=== PATIENT | female | born 1945 | race Caucasian/White ===

== ENCOUNTER 2016-10-15 09:29 | Emergency (ER) | payer BC ==
[2016-10-15 09:51] VITALS: BP 206/80
--- NOTE | 2016-10-15 10:17 | UC ---
General HPI - HPI Summary HPI Summary: SUDDEN ONSET OF RIGHT ARM AND LEG "HEAVINESS" THIS MORNING AROUND 7:40AM WHILE SHE WAS DRINKING COFFEE. "JUST DIDN'T FEEL RIGHT". COULDN'T HOLD HER COFFEE CUP UP. FELT THE SAME WHEN SHE HAD HER TIA IN 2008. AFTER ABOUT AN HOUR THE SYMPTOMS IMPROVED AND SHE CURRENTLY HAS NO CLINICAL DEFICITS ALTHOUGH SHE STATES IT STILL "DOESN'T FEEL RIGHT". NO FEVER, CP, SOB, NAUSEA. - History of Current Complaint Chief Complaint: UCGeneralIllness Stated Complaint: HEAVEY FEELING ON RT SIDE Time Seen by Provider: 10/15/16 09:44 Hx Obtained From: Patient, Family/Asbestos Abatement Worker - DAUGHTER Onset/Duration: Sudden Onset, Lasting Hours, Resolved Onset Severity: Moderate Current Severity: Moderate Pain Intensity: 0 Associated Signs & Symptoms: Positive: Weakness - Allergy/Home Medications Allergies/Adverse Reactions: Allergies Allergy/AdvReac Type Severity Reaction Status Date / Time Acetaminophen Allergy Nausea Verified 04/17/13 11:36 [From Tylenol with Codeine #3] Codeine Allergy Nausea Verified 04/17/13 11:36 [From Tylenol with Codeine #3] Lidocaine Allergy FULL BODY Verified 04/17/13 11:36 SHAKES Lisinopril Allergy Coughing Verified 04/17/13 11:36 Sulfamethoxazole Allergy Rash Verified 04/17/13 11:36 w/Trimethoprim [From Bactrim] BANDAID/ADHESIVE TAPE Allergy SEVERE Uncoded 04/17/13 11:36 ITCHY RASH PERFUMES/HEAVY Allergy CHOKY Uncoded 04/17/13 11:36 SMELLS/FRAGRENCE FEELING, COUGH PMH/Surg Hx/FS Hx/Imm Hx Cardiovascular History: Hypertension Neurological History: TIA - 2009 - Surgical History Surgical History: Yes Surgery Procedure, Year, and Place: 07/13/2011 [facility]. 1973 GROWN IN [facility]IL[facility]A, [facility] - Family History Known Family History: Positive: Hypertension - Social History Alcohol Use: Rare Substance Use Type: None Smoking Status (MU): Heavy Every Day Tobacco Smoker Type: Cigarettes Amount Used/How Often: 3/4 ppd Have You Smoked in the Last Year: Yes Review of Systems Constitutional: Negative Skin: Negative Respiratory: Negative Cardiovascular: Negative Gastrointestinal: Negative Neurological: Weakness, Paresthesia All Other Systems Reviewed And Are Negative: Yes Physical Exam Triage Information Reviewed: Yes Appearance: Well-Appearing, No Pain Distress, Well-Nourished Vital Signs: Initial Vital Signs Temp 98 F 10/15/16 09:47 Pulse 78 10/15/16 09:47 Resp 18 10/15/16 09:47 BP 206/80 10/15/16 09:47 Pulse Ox 100 10/15/16 09:47 Vital Signs Reviewed: Yes Eyes: Positive: Conjunctiva Clear ENT: Positive: Hearing grossly normal Neck: Positive: Supple, Nontender, No Lymphadenopathy Respiratory Exam: Normal Cardiovascular Exam: Normal Abdomen Description: Positive: Soft Musculoskeletal: Positive: No Edema Neurological: Positive: Alert, Other: - CN II-XII GROSSLY INTACT BILATERALLY. NEG PRONATOR DRIFT. NEGATIVE ROMBERG. FINGER TO NOSE INTACT BILATERALLY. HEEL TO MOORE INTACT BILATERALLY. HEEL TO TOE INTACT BILATERALLY. RAPID ALTERNATING MVMTS INTACT. 5/5 STRENGTH BILATERALLY Psychological: Positive: Normal Response To Family, Age Appropriate Behavior Skin: Negative: rashes Course/Dx - Differential Dx - Multi-Symptom Provider Diagnoses: RIGHT SIDED WEAKNESS - Physician Notifications Discussed Patient Care With: SNEHA GOODMAN Time Discussed With Above Provider: 10:10 - TO [facility] BY PRIVATE CAR Discharge - Discharge Plan Condition: Stable Disposition: AGAINST MEDICAL ADVICE Referrals: Olga Flores MD [Primary Care Provider] -
== END 2016-10-15 10:15 | disposition left against medical advice (07) ==
LOC: UCEAST 09:29
DX: R53.1 Weakness (principal); Z86.73 Personal history of transient ischemic attack (TIA), and cerebral infarction without residual deficits; F17.210 Nicotine dependence, cigarettes, uncomplicated
CPT/HCPCS: 99212; G0463

== ENCOUNTER 2016-10-15 10:34 | Emergency (ER) | payer BC ==
[2016-10-15 11:21] VITALS: BP 170/62
[2016-10-15 11:24] LABS: Hematocrit 46 % (35-47); Mean Corpuscular HGB Conc 33 g/dl (31-36); Mean Corpuscular Hemoglobin 31 pg (27-31); Mean Corpuscular Volume 95 fL (80-97); Mean Platelet Volume 8 um3 (7.4-10.4); Red Blood Count 4.83 10^6/ul (4.0-5.4); Red Cell Distribution Width 14 % (10.5-15); White Blood Count 8.2 10^3/ul (3.5-10.8)
--- NOTE | 2016-10-15 11:38 | RAD ---
HISTORY: Upper extremity weakness COMPARISONS: None VIEWS: 2: Frontal dual-energy and lateral views of the chest. FINDINGS: CARDIOMEDIASTINAL SILHOUETTE: The cardiomediastinal silhouette is normal. NIURKA: The niurka are normal. PLEURA: The costophrenic angles are sharp. No pleural abnormalities are noted. LUNG PARENCHYMA: There is minimal linear opacification of left lung base ABDOMEN: The upper abdomen is clear. There is no subphrenic gas. BONES AND SOFT TISSUES: Degenerative changes are noted along the spine. OTHER: None. IMPRESSION: MINIMAL LINEAR ATELECTASIS OF LEFT LUNG BASE
--- NOTE | 2016-10-15 11:49 | RAD ---
HISTORY: Right upper extremity weakness COMPARISONS: October 30, 2008 TECHNIQUE: Multiple contiguous axial CT scans were obtained of the head without intravenous contrast. FINDINGS: HEMORRHAGE/INFARCT: There is no hemorrhage or acute infarct. MASSES/SHIFT: There is no mass or shift. EXTRA-AXIAL SPACES: There are no extra-axial fluid collections. SULCI AND VENTRICLES: The sulci and ventricles are normal in size and position for the patient's stated age. CEREBRUM: There are no focal parenchymal abnormalities. BRAINSTEM: There are no focal parenchymal abnormalities. CEREBELLUM: There are no focal parenchymal abnormalities. VESSELS: The vessels are grossly normal. PARANASAL SINUSES: There is mucosal thickening of the left maxillary sinus. ORBITS: The orbits are unremarkable. BONES AND SOFT TISSUE: There is a subcutaneous cyst of the right face, likely an epidermal inclusion cyst. OTHER: None IMPRESSION: NO ACUTE INTRACRANIAL PATHOLOGY.
[2016-10-15 12:51] LABS: Albumin 4.3 g/dL (3.2-5.2); BUN/Creatinine Ratio 17.9 (8-20); Calcium 9.6 mg/dL (8.6-10.3); EGFR African American 93.1 (>60); EGFR Non-African American 72.4 (>60); Globulin 2.9 g/dL (2-4); HDL Cholesterol 53.7 mg/dL; Potassium 4.1 mmol/L (3.5-5.0); Total Bilirubin 0.6 mg/dL (0.2-1.0); Total Protein 7.2 g/dL (6.4-8.9)
[2016-10-15 13:17] LABS: Troponin I 0.05 ng/mL (<0.04)
--- NOTE | 2016-10-16 17:25 | ED ---
Benigno Duarte Aidan, scribed for Devan Fatima MD on 10/15/16 at 1119 . Neurological HPI - HPI Summary HPI Summary: 71 y/o female presents to the ED with a complaint of an acute, moderate episode of heaviness in the right arm followed by a similar sensation in the right arm that she had previously in 2008 when she had a stroke. The episode lasted roughly an hour. Currently, she is asymptomatic. Additionally, last Monday she fell and hit her head. The fall was followed by lightheadedness, however, there was no reported LOC. SHe denies any CP, SOB or palpitations. - History of Current Complaint Chief Complaint: EDNeurologicalDeficit Stated Complaint: POSSIBLE TIA COMMING FROM CC Time Seen by Provider: 10/15/16 10:53 Hx Obtained From: Patient, Family/Movie Shot Cameraman Onset/Duration: Sudden Onset, Resolved Timing: Intermittent Episodes Lasting: - episode lasted roughly 1 hour Onset Severity: Moderate Current Severity: None Number of Seizures: 0 - the episode is likely not categorized as a seizure Neurological Deficit Location: RUE Pain Intensity: 0 Pain Scale Used: 0-10 Numeric Character: Motor Weakness - right arm Syncope Timing: GHOST WRITER Episode Lasting: Hours - 1 hour Number of Episodes: 1 Syncope Context: Unwitnessed, Loss of Consciousness: No, At Rest Frequency: Episodes x___ - 1, Episodes Lasting ____ (in Mins/Days/Weeks/Years) - 1 hour Syncope Location: Partial Extremities - There was no syncope, however, the patient had an episode of moderate weakness in the right arm followed by a sensation similar to one she had in 2008 just after having a stroke Seizure Character: Partial (Specify) - weakness in RUE followed by a strange sensation Aggravating: Unknown Alleviating: Unknown - episode resolved spontaniously Associated Signs and Symptoms: Positive: Negative - however, 7 days ago, Pt fell onto her head. No reported LOC but there was lightheadedness - Allergy/Home Medications Allergies/Adverse Reactions: Allergies Allergy/AdvReac Type Severity Reaction Status Date / Time Codeine Allergy Nausea Verified 10/15/16 10:37 [From Tylenol with Codeine #3] Lidocaine Allergy FULL BODY Verified 10/15/16 10:37 SHAKES Lisinopril Allergy Coughing Verified 10/15/16 10:37 Sulfamethoxazole Allergy Rash Verified 10/15/16 10:37 w/Trimethoprim [From Bactrim] BANDAID/ADHESIVE TAPE Allergy SEVERE Uncoded 10/15/16 10:37 ITCHY RASH PERFUMES/HEAVY Allergy CHOKY Uncoded 10/15/16 10:37 SMELLS/FRAGRENCE FEELING, COUGH PMH/Surg Hx/FS Hx/Imm Hx Endocrine/Hematology History: Denies: Hx Diabetes, Hx Thyroid Disease Cardiovascular History: Reports: Hx Hypertension - ON MEDS, Other Cardiovascular Problems/Disorders - CHOLESTEROL CONTROL WITH MEDS Respiratory History: Reports: Other Respiratory Problems/Disorders - OCCASIONAL SINUS PROBLEMS, MAY BE RELATED TO SMOKING, TRYING TO QUIT Denies: Hx Asthma, Hx Chronic Obstructive Pulmonary Disease (COPD) GI History: Denies: Hx Ulcer Musculoskeletal History: Reports: Hx Arthritis - SPINE, BILATERAL HANDS, Hx Tendonitis - RIGHT SHOULDER-NO PROBLEMS NOW Sensory History: Reports: Hx Cataracts - BILATERAL, Hx Contacts or Glasses - GLASSES, Hx Glaucoma - VERY EARLY STAGES Denies: Hx Hearing Aid Opthamlomology History: Reports: Hx Cataracts - BILATERAL, Hx Contacts or Glasses - GLASSES, Hx Glaucoma - VERY EARLY STAGES Neurological History: Reports: Hx CVA - in 2008, according to Pt - Surgical History Surgery Procedure, Year, and Place: 07/13/2011 [facility] REMOVED FROM [facility] [place] [facility]. 1973 GROWN IN [facility] ARE[place], [facility] Hx Anesthesia Reactions: No Infectious Disease History: No Infectious Disease History: Denies: Hx Clostridium Difficile, Hx Hepatitis, Hx Human Immunodeficiency Virus (HIV), Hx of Known/Suspected MRSA, Hx Shingles, Hx Tuberculosis, Hx Known/ Suspected VRE, Hx Known/Suspected VRSA, History Other Infectious Disease, Traveled Outside the [place] in Last 30 Days - Family History Known Family History: Positive: Hypertension, Blood Disorder - blood clots, Other - [place] - Social History Occupation: Employed Full-time Lives: Alone Alcohol Use: Rare Substance Use Type: Reports: None Smoking Status (MU): Heavy Every Day Tobacco Smoker Type: Cigarettes Amount Used/How Often: 3/4 ppd Have You Smoked in the Last Year: Yes Review of Systems Constitutional: Negative Eyes: Negative ENT: Negative Cardiovascular: Negative Respiratory: Negative Gastrointestinal: Negative Genitourinary: Negative Musculoskeletal: Negative Skin: Negative Positive: Weakness - right arm, followed by episode of a similar sensation that she had in 2008 when she had a stroke. Negative: Headache, Paresthesia, Numbness, Syncope, Slurred Speech Psychological: Normal All Other Systems Reviewed And Are Negative: Yes Physical Exam - Summary Physical Exam Summary: VITAL SIGNS: Reviewed. GENERAL: Patient is a well-developed and nourished FEMALE who is lying comfortable in the stretcher. Patient is not in any acute respiratory distress. HEAD AND FACE: No signs of trauma. No ecchymosis, hematomas or skull depressions. No sinus tenderness. EYES: PERRLA, EOMI x 2, No injected conjunctiva, no nystagmus. No photophobia. EARS: Hearing grossly intact. Ear canals and tympanic membranes are within normal limits. MOUTH: Oropharynx within normal limits. NECK: Supple, trachea is midline, no adenopathy, no JVD, no carotid bruit, no c- spine tenderness, neck with full ROM. No meningeal signs, no Kernig's or brudzinskis signs. CHEST: Symmetric, no tenderness at palpation, bruising on the right side of the chest LUNGS: Clear to auscultation bilaterally. No wheezing or crackles. CVS: Regular rate and rhythm, S1 and S2 present, no murmurs or gallops appreciated. ABDOMEN: Soft, non-tender. No signs of distention. No rebound no guarding, and no masses palpated. Bowel sounds are normal. EXTREMITIES: FROM in all major joints, no edema, no cyanosis or clubbing. NEURO: Alert and oriented x 3. No acute neurological deficits. Speech is normal and follows commands. SKIN: Dry and warm Triage Information Reviewed: Yes Vital Signs On Initial Exam: Initial Vitals Temp Pulse Resp BP Pulse Ox 97.6 F 74 18 157/72 100 10/15/16 10:38 10/15/16 10:38 10/15/16 10:38 10/15/16 10:38 10/15/16 10:38 Vital Signs Reviewed: Yes Diagnostics - Vital Signs Vital Signs Temp Pulse Resp BP Pulse Ox 10/15/16 10:47 15 10/15/16 10:46 165/73 10/15/16 10:38 97.6 F 74 18 157/72 100 - Laboratory Lab Results: Lab Results 10/15/16 10/15/16 10/15/16 Range/Units 11:12 11:12 11:12 WBC 8.2 (3.5-10.8) 10^3/ul RBC 4.83 (4.0-5.4) 10^6/ul Hgb 15.0 (12.0-16.0) g/dl Hct 46 (35-47) % MCV 95 (80-97) fL MCH 31 (27-31) pg MCHC 33 (31-36) g/dl RDW 14 (10.5-15) % Plt Count 232 (150-450) 10^3/ul MPV 8 (7.4-10.4) um3 Neut % (Auto) 63.7 (38-83) % Lymph % (Auto) 25.1 (25-47) % [place] % (Auto) 8.6 (1-9) % Eos % (Auto) 1.8 (0-6) % Baso % (Auto) 0.8 (0-2) % Absolute Neuts (auto) 5.2 (1.5-7.7) 10^3/ul Absolute Lymphs (auto) 2.1 (1.0-4.8) 10^3/ul Absolute Monos (auto) 0.7 (0-0.8) 10^3/ul Absolute Eos (auto) 0.1 (0-0.6) 10^3/ul Absolute Basos (auto) 0.1 (0-0.2) 10^3/ul Absolute Nucleated RBC 0.01 10^3/ul Nucleated RBC % 0.1 INR (Anticoag Therapy) 0.90 (0.89-1.11) Sodium (133-145) mmol/L Potassium (3.5-5.0) mmol/L Chloride (101-111) mmol/L Carbon Dioxide (22-32) mmol/L Anion Gap (2-11) mmol/L BUN (6-24) mg/dL Creatinine (0.51-0.95) mg/dL Est GFR ( Amer) (>60) Est GFR (Non-Af Amer) (>60) BUN/Creatinine Ratio (8-20) Glucose (70-100) mg/dL Lactic Acid 1.0 (0.5-2.0) mmol/L Calcium (8.6-10.3) mg/dL Total Bilirubin (0.2-1.0) mg/dL AST (13-39) U/L ALT (7-52) U/L Alkaline Phosphatase (34-104) U/L Troponin I (<0.04) ng/mL Total Protein (6.4-8.9) g/dL Albumin (3.2-5.2) g/dL Globulin (2-4) g/dL Albumin/Globulin Ratio (1-3) Triglycerides mg/dL Cholesterol mg/dL LDL Cholesterol mg/dL HDL Cholesterol mg/dL 10/15/16 Range/Units 12:23 WBC (3.5-10.8) 10^3/ul RBC (4.0-5.4) 10^6/ul Hgb (12.0-16.0) g/dl Hct (35-47) % MCV (80-97) fL MCH (27-31) pg MCHC (31-36) g/dl RDW (10.5-15) % Plt Count (150-450) 10^3/ul MPV (7.4-10.4) um3 Neut % (Auto) (38-83) % Lymph % (Auto) (25-47) % [place] % (Auto) (1-9) % Eos % (Auto) (0-6) % Baso % (Auto) (0-2) % Absolute Neuts (auto) (1.5-7.7) 10^3/ul Absolute Lymphs (auto) (1.0-4.8) 10^3/ul Absolute Monos (auto) (0-0.8) 10^3/ul Absolute Eos (auto) (0-0.6) 10^3/ul Absolute Basos (auto) (0-0.2) 10^3/ul Absolute Nucleated RBC 10^3/ul Nucleated RBC % INR (Anticoag Therapy) (0.89-1.11) Sodium 137 (133-145) mmol/L Potassium 4.1 (3.5-5.0) mmol/L Chloride 107 (101-111) mmol/L Carbon Dioxide 25 (22-32) mmol/L Anion Gap 5 (2-11) mmol/L BUN 14 (6-24) mg/dL Creatinine 0.78 (0.51-0.95) mg/dL Est GFR ( Amer) 93.1 (>60) Est GFR (Non-Af Amer) 72.4 (>60) BUN/Creatinine Ratio 17.9 (8-20) Glucose 98 (70-100) mg/dL Lactic Acid (0.5-2.0) mmol/L Calcium 9.6 (8.6-10.3) mg/dL Total Bilirubin 0.60 (0.2-1.0) mg/dL AST 19 (13-39) U/L ALT 15 (7-52) U/L Alkaline Phosphatase 57 (34-104) U/L Troponin I 0.05 H* (<0.04) ng/mL Total Protein 7.2 (6.4-8.9) g/dL Albumin 4.3 (3.2-5.2) g/dL Globulin 2.9 (2-4) g/dL Albumin/Globulin Ratio 1.5 (1-3) Triglycerides 90 mg/dL Cholesterol 147 mg/dL LDL Cholesterol 75 mg/dL HDL Cholesterol 53.7 mg/dL Result Diagrams: 10/15/16 11:12 10/15/16 12:23 Lab Statement: Any lab studies that have been ordered have been reviewed, and results considered in the medical decision making process. - Radiology CHEST X-RAY Xray Interpretation: Positive (See Comments) - IMPRESSION: MINIMAL LINEAR ATELECTASIS OF LEFT LUNG BASE Radiology Interpretation Completed By: Radiologist - CT BRAIN CT CT Interpretation: No Acute Changes - IMPRESSION: No acute intracranial pathology. CT Interpretation Completed By: Radiologist - EKG EKG 1050 Cardiac Rate: NL - 66 BPM EKG Rhythm: Sinus Rhythm EKG Interpretation: SINUS RHYTHM, NO ST ELEVATIONS Course/Dx - Course Course Of Treatment: 71 y/o female presents with a complaint of an episode of weakness in her right arm followed by a sensation similar to one she had in 2008 just after having a stroke. She denies any chest pain or SOB. Labs and imaging reviewed. Labs within normal limits except for a troponin of 0.05. Head ct is negative. Chest x-ray is negative. Test results were discussed with the patient and she was offered admission since I believ she had a TIA and she has an increased Troponin. She refuses sdmisssion. I explained the risk of increased troponin ans acute coronary syndrome. She reports that she no longer has symptoms and that she would like to be discharged home, despite the risks of discharge. She was explained the risk of leaving AMA. She claims to understand the risks and still wishes to be discharged home. EKG showed normal sinus rhythm at [address] elevations, however, there is still concern for acute coronary syndrome. The patient still refuses to stay and therefore will leave AMA. I extensively discussed with the patient the benefits and risk of leaving AMA. I also discussed the alternatives to leaving AMA, however, the patient still insist to leave the hospital AMA.. The primary nurse and the charge nurse also strongly recommended that the patient should not leave AMA. Patient understands the risk of leaving AMA, which includes but is not restricted to . Patient is Alert and oriented times three and patient verbalizes understanding. Patient has full capacity and is cognitively intact. Patient signed the AMA form. Patient was also advised to return to ED if he changes his mind or if the symptoms worsen or other symptoms appear. Patient understands and agrees. - Differential Dx Differential Diagnoses Neuro: Positive: Cerebrovascular Accident, Intracranial Bleed, Other - ACS, [place] - Diagnoses Provider Diagnoses: Left against medical advice, Elevated troponin, TIA (transient ischemic attack) Discharge - Discharge Plan Condition: Guarded Disposition: AGAINST MEDICAL ADVICE The documentation as recorded by the Benigno daivs Aidan accurately reflects the service I personally performed and the decisions made by me, Devan Fatima MD.
== END 2016-10-15 13:20 | disposition left against medical advice (07) ==
LOC: ED 10:34
DX: G45.9 Transient cerebral ischemic attack, unspecified (principal); R79.89 Other specified abnormal findings of blood chemistry; Z53.21 Procedure and treatment not carried out due to patient leaving prior to being seen by health care provider
CPT/HCPCS: 36415; 70450; 71020; 80053; 80061; 83605; 84484; 85025; 85610; 93005; 99283

== ENCOUNTER 2017-02-10 14:15 | Emergency (ER) | payer BC ==
[2017-02-10 14:28] VITALS: BP 121/50
--- NOTE | 2017-02-10 15:11 | UC ---
Respiratory Complaint HPI - HPI Summary HPI Summary: 3 weeks of sinus pain and congestion - History of Current Complaint Chief Complaint: UCGeneralIllness Stated Complaint: COUGH CONGESTION Time Seen by Provider: 02/10/17 14:51 Hx Obtained From: Patient Hx From Patient Unobtainable Due To: Dementia ?: No Onset/Duration: Gradual Onset, Lasting Weeks - 3, Worse Since - past 3-4 days Timing: Constant Severity Initially: Mild Severity Currently: Moderate Pain Intensity: 4 Pain Scale Used: 0-10 Numeric Character: Cough: Nonproductive Aggravating Factors: Nothing Alleviating Factors: Nothing Associated Signs And Symptoms: Positive: Pleuritic Chest Pain, URI, Nasal Congestion, Sinus Discomfort - Allergies/Home Medications Allergies/Adverse Reactions: Allergies Allergy/AdvReac Type Severity Reaction Status Date / Time Codeine Allergy Nausea Verified 02/10/17 14:29 [From Tylenol with Codeine #3] Lidocaine Allergy FULL BODY Verified 02/10/17 14:29 SHAKES Lisinopril Allergy Coughing Verified 02/10/17 14:29 Sulfamethoxazole Allergy Rash Verified 02/10/17 14:29 w/Trimethoprim [From Bactrim] BANDAID/ADHESIVE TAPE Allergy SEVERE Uncoded 02/10/17 14:29 ITCHY RASH PERFUMES/HEAVY Allergy CHOKY Uncoded 02/10/17 14:29 SMELLS/FRAGRENCE FEELING, COUGH Home Medications: Home Medications Dipyridamole/Aspirin 25/200* [Aggrenox 25/200*] 1 cap PO BID 02/10/17 [History Confirmed 02/10/17] Timolol 0.5% OPTH.PATRICK* [Timoptic 0.5% Opth*] 1 drop BOTH EYES DAILY 02/10/17 [ History Confirmed 02/10/17] PMH/Surg Hx/FS Hx/Imm Hx Previously Healthy: No Cardiovascular History: Hypertension, Other - PVD Other Cardiovascular History: PVD - Surgical History Surgical History: Yes Surgery Procedure, Year, and Place: [facility] 1973 [facility], [facility] - Family History Known Family History: Positive: Hypertension, Blood Disorder - blood clots, Other - [place] - Social History Occupation: Employed Part-time Lives: With Family Alcohol Use: None Substance Use Type: None Smoking Status (MU): Heavy Every Day Tobacco Smoker Type: Cigarettes Amount Used/How Often: < 1PPD Have You Smoked in the Last Year: Yes Household Exposure Type: Cigarettes Review of Systems Constitutional: Negative Skin: Negative Eyes: Negative ENT: Nasal Discharge, Sinus Congestion, Sinus Pain/Tenderness Respiratory: Cough Cardiovascular: Negative Gastrointestinal: Negative Genitourinary: Negative Motor: Negative Neurovascular: Negative Musculoskeletal: Negative Neurological: Negative Psychological: Negative Is Patient Immunocompromised?: No All Other Systems Reviewed And Are Negative: Yes Physical Exam Triage Information Reviewed: Yes Appearance: Well-Appearing, No Pain Distress, Well-Nourished Vital Signs: Initial Vital Signs Temp 97.7 F 02/10/17 14:23 Pulse 74 02/10/17 14:23 Resp 18 02/10/17 14:23 BP 121/50 02/10/17 14:23 Pulse Ox 99 02/10/17 14:23 Vital Signs Reviewed: Yes Eye Exam: Normal Eyes: Positive: Conjunctiva Clear ENT Exam: Normal ENT: Positive: Normal ENT inspection, Hearing grossly normal, TMs normal. Negative: Nasal congestion, Nasal drainage, Trismus, Muffled/hoarse voice Neck exam: Normal Neck: Positive: Supple, Nontender, No Lymphadenopathy Respiratory Exam: Normal Respiratory: Positive: Chest non-tender, Lungs clear, Normal breath sounds, No respiratory distress, No accessory muscle use Cardiovascular Exam: Normal Cardiovascular: Positive: RRR, No Murmur, Pulses Normal, Brisk Capillary Refill Musculoskeletal Exam: Normal Musculoskeletal: Positive: Strength Intact, ROM Intact, No Edema Neurological Exam: Normal Neurological: Positive: Alert, Muscle Tone Normal Psychological Exam: Normal Skin Exam: Normal UC Diagnostic Evaluation - Laboratory O2 Sat by Pulse Oximetry: 99 Respiratory Course/Dx - Course Course Of Treatment: Flonase, Robitussin, zithromax, increase fluids, follow with pcp prn - Differential Dx/Diagnosis Differential Diagnosis/HQI/PQRI: Bronchitis, Lower Resp Infection, Sinusitis Provider Diagnoses: Bronchitis, sinusitis Discharge - Discharge Plan Condition: Stable Disposition: HOME Prescriptions: Azithromycin TAB* [Zithromax TAB (Z-FAVIAN) 250 mg #6 tabs] 2 tab PO .TODAY, THEN 1 DAILY #1 favian Fluticasone NASAL SPRAY 50MCG* [Flonase NASAL SPRAY 50MCG*] 2 spray BOTH NARES DAILY #1 btl Patient Education Materials: Antitussives (By mouth), Sinusitis (ED), Acute Bronchitis (ED), How to Use Nasal [place] (ED) Forms: *Work Release Referrals: Olga Flores MD [Primary Care Provider] - If Needed
== END 2017-02-10 15:24 | disposition home or self-care (01) ==
LOC: UCEAST 14:15
DX: J40 Bronchitis, not specified as acute or chronic (principal); J32.9 Chronic sinusitis, unspecified; I10 Essential (primary) hypertension; I73.9 Peripheral vascular disease, unspecified; F17.210 Nicotine dependence, cigarettes, uncomplicated; Z79.82 Long term (current) use of aspirin; Z88.5 Allergy status to narcotic agent; Z88.2 Allergy status to sulfonamides
CPT/HCPCS: 99212; G0463

== ENCOUNTER 2017-04-12 15:42 | Emergency (ER) | payer BC ==
[2017-04-12 15:49] VITALS: BP 115/58
--- NOTE | 2017-04-12 16:28 | ED ---
Respiratory - HPI Summary HPI Summary: 72 YO F WITH COUGH BRONCHITIS SX WORSENING OVER THE LAST SEVERAL DAYS. SX STARTED 2 MONTHS AGO. IMPROVED INITIALLY WITH ZPAC AND FLONASE BUT, SX PERSISTED AFTER MEDS AND ARE NOW WORSE. - History of Current Complaint Chief Complaint: UCRespiratory Stated Complaint: URI Time Seen by Provider: 04/12/17 16:02 Hx Obtained From: Patient Onset/Duration: Lasting Weeks, Still Present, Worse Since - DAYS Timing: Constant Initial Severity: Moderate Current Severity: Moderate Character: Cough (Productive) Aggravating Factor(s): URI Alleviating Factor(s): Nothing Associated Signs and Symptoms: SOB, URI, Chills Related History: Similar Episode/Dx as - FEB 2017 - Allergy/Home Medications Allergies/Adverse Reactions: Allergies Allergy/AdvReac Type Severity Reaction Status Date / Time Codeine Allergy Nausea Verified 04/12/17 15:47 [From Tylenol with Codeine #3] Lidocaine Allergy FULL BODY Verified 04/12/17 15:47 SHAKES Lisinopril Allergy Coughing Verified 04/12/17 15:47 Sulfamethoxazole Allergy Rash Verified 04/12/17 15:47 w/Trimethoprim [From Bactrim] BANDAID/ADHESIVE TAPE Allergy SEVERE Uncoded 04/12/17 15:47 ITCHY RASH PERFUMES/HEAVY Allergy CHOKY Uncoded 04/12/17 15:47 SMELLS/FRAGRENCE FEELING, COUGH PMH/Surg Hx/FS Hx/Imm Hx Endocrine/Hematology History: Denies: Hx Diabetes, Hx Thyroid Disease Cardiovascular History: Reports: Hx Hypertension - ON MEDS, Other Cardiovascular Problems/Disorders - CHOLESTEROL CONTROL WITH MEDS Respiratory History: Reports: Other Respiratory Problems/Disorders - OCCASIONAL SINUS PROBLEMS, MAY BE RELATED TO SMOKING, TRYING TO QUIT Denies: Hx Asthma, Hx Chronic Obstructive Pulmonary Disease (COPD) GI History: Denies: Hx Ulcer Musculoskeletal History: Reports: Hx Arthritis - SPINE, BILATERAL HANDS, Hx Tendonitis - RIGHT SHOULDER-NO PROBLEMS NOW Sensory History: Reports: Hx Cataracts - BILATERAL, Hx Contacts or Glasses - GLASSES, Hx Glaucoma - VERY EARLY STAGES Denies: Hx Hearing Aid Opthamlomology History: Reports: Hx Cataracts - BILATERAL, Hx Contacts or Glasses - GLASSES, Hx Glaucoma - VERY EARLY STAGES Neurological History: Reports: Hx CVA - in 2008, according to Pt - Surgical History Surgery Procedure, Year, and Place: 07/13/2011 [facility] REMOVED FROM [facility], [facility] [facility]. 1971 GROWN IN UMBILICUS AREA, [facility] Hx Anesthesia Reactions: No Infectious Disease History: No Infectious Disease History: Denies: Hx Clostridium Difficile, Hx Hepatitis, Hx Human Immunodeficiency Virus (HIV), Hx of Known/Suspected MRSA, Hx Shingles, Hx Tuberculosis, Hx Known/ Suspected VRE, Hx Known/Suspected VRSA, History Other Infectious Disease, Traveled Outside the [place] in Last 30 Days - Family History Known Family History: Positive: Hypertension, Blood Disorder - blood clots, Other - [place] - Social History Alcohol Use: None Substance Use Type: Reports: None Smoking Status (MU): Heavy Every Day Tobacco Smoker Type: Cigarettes Amount Used/How Often: < 1PPD Have You Smoked in the Last Year: Yes Review of Systems Positive: Chills Eyes: Negative Positive: Nasal Discharge Positive: Other - SPLINTING PAIN WITH COUGH Positive: Shortness Of Breath, Cough Positive: Diarrhea Genitourinary: Negative Musculoskeletal: Negative Skin: Negative Neurological: Negative Psychological: Normal All Other Systems Reviewed And Are Negative: Yes Physical Exam Triage Information Reviewed: Yes Vital Signs On Initial Exam: Initial Vitals Temp Pulse Resp BP Pulse Ox 97.0 F 76 16 115/58 100 04/12/17 15:47 04/12/17 15:47 04/12/17 15:47 04/12/17 15:47 04/12/17 15:47 Vital Signs Reviewed: Yes Appearance: Positive: Well-Appearing Skin: Positive: Warm, Skin Color Reflects Adequate Perfusion Head/Face: Positive: Normal Head/Face Inspection Eyes: Positive: Normal, EOMI, AMY ENT: Positive: Nasal congestion Neck: Positive: Supple, Nontender Respiratory/Lung Sounds: Positive: Clear to Auscultation Cardiovascular: Positive: Normal, RRR Abdomen Description: Positive: Nontender Bowel Sounds: Positive: Present Musculoskeletal: Positive: Normal. Negative: Edema Left, Edema Right Neurological: Positive: Normal Psychiatric: Positive: Normal AVPU Assessment: Alert Diagnostics - Vital Signs Vital Signs Temp Pulse Resp BP Pulse Ox 04/12/17 15:47 97.0 F 76 16 115/58 100 - Laboratory Lab Statement: Any lab studies that have been ordered have been reviewed, and results considered in the medical decision making process. Disposition - Diagnoses Provider Diagnoses: Bronchitis Discharge - Discharge Plan Condition: Stable Disposition: HOME Prescriptions: Fluticasone NASAL SPRAY 50MCG* [Flonase NASAL SPRAY 50MCG*] 2 spray BOTH NARES DAILY #1 btl GuaiFENesin DM sugar free* [Robitussin DM sugar free*] 10 ml PO Q4H PRN #120 ml PRN Reason: Cough Levofloxacin TAB* [Levaquin TAB*] 500 mg PO DAILY #7 tab Patient Education Materials: Acute Bronchitis (ED) Referrals: Olga Flores MD [Primary Care Provider] - Additional Instructions: FOLLOW UP WITH YOUR DOCTOR. GET RECHECKED FOR ANY WORSENING OF YOUR CONDITION OR QUESTIONS OR CONCERNS.
== END 2017-04-12 16:40 | disposition home or self-care (01) ==
LOC: UCEAST 15:42
DX: J40 Bronchitis, not specified as acute or chronic (principal); I10 Essential (primary) hypertension; Z88.4 Allergy status to anesthetic agent; Z88.5 Allergy status to narcotic agent; Z88.2 Allergy status to sulfonamides; Z91.048 Other nonmedicinal substance allergy status; F17.210 Nicotine dependence, cigarettes, uncomplicated
CPT/HCPCS: 99212; G0463

== ENCOUNTER 2018-09-26 15:00 | Emergency (ER) | payer BC ==
[2018-09-26 15:08] VITALS: BP 142/49
--- NOTE | 2018-09-26 15:15 | UC ---
Respiratory Complaint HPI - HPI Summary HPI Summary: 73 yo female presents with shortness of breath of the last few months. She tells me that she has been a smoker for many years and over the last 6-7 months has noticed that she feels she "isn't getting air" during certain times of the day - mostly at bedtime or when the weather changes. She says that her lungs feels tight and she feels like she is breathing through a small hole. She has no chest pain or dizziness when this happens. Last night she reports waking up in the middle of the night gasping for air. This caused her to worry - prompting her visit today. Currently she has no chest pain, dizziness, cold symptoms, abdominal pain. - History of Current Complaint Chief Complaint: UCRespiratory Stated Complaint: CHEST CONGESTION Time Seen by Provider: 09/26/18 15:14 Hx Obtained From: Patient Onset/Duration: Gradual Onset Severity Currently: None Pain Intensity: 0 - Allergies/Home Medications Allergies/Adverse Reactions: Allergies Allergy/AdvReac Type Severity Reaction Status Date / Time codeine Allergy Nausea Verified 09/26/18 15:10 lidocaine Allergy See Comment Verified 09/26/18 15:10 lisinopril Allergy Coughing Verified 09/26/18 15:10 Sulfa (Sulfonamide Allergy Rash Verified 09/26/18 15:10 Antibiotics) BANDAID/ADHESIVE TAPE Allergy SEVERE Uncoded 09/26/18 15:10 ITCHY RASH PERFUMES/HEAVY Allergy CHOKY Uncoded 09/26/18 15:10 SMELLS/FRAGRENCE FEELING, COUGH PMH/Surg Hx/FS Hx/Imm Hx Endocrine History: Dyslipidemia Cardiovascular History: Hypertension - Surgical History Surgical History: Yes Surgery Procedure, Year, and Place: 07/13/2011 [facility] REMOVED FROM [facility]. 1971 GROWN IN UMBILIC AREA, [facility] - Family History Known Family History: Positive: Hypertension, Blood Disorder - blood clots, Other - [place] - Social History Occupation: Retired Alcohol Use: None Substance Use Type: None Smoking Status (MU): Heavy Every Day Tobacco Smoker Type: Cigarettes Amount Used/How Often: < 1PPD Have You Smoked in the Last Year: Yes Household Exposure Type: Cigarettes Review of Systems All Other Systems Reviewed And Are Negative: Yes Constitutional: Positive: Negative Skin: Positive: Negative Eyes: Positive: Negative ENT: Positive: Negative Respiratory: Positive: Shortness Of Breath Cardiovascular: Positive: Negative Gastrointestinal: Positive: Negative Musculoskeletal: Positive: Negative Neurological: Positive: Negative Psychological: Positive: Negative Physical Exam - Summary Physical Exam Summary: GENERAL: NAD. WDWN. No pain distress. SKIN: No rashes, sores, lesions, or open wounds. HEENT: Head: AT/NC Eyes: Conjunctiva clear without inflammation or discharge. Ears: Hearing grossly normal. TMs intact, no bulging, erythema, or edema. Nose: Nasal mucosa pink and moist. NTTP maxillary and frontal sinus. Throat: Posterior oropharynx without exudates, erythema, or tonsillar enlargement. Uvula midline. NECK: Supple. Nontender. No lymphadenopathy. CHEST: Distant breath sound throughout. No r/r. No accessory muscle use. Breathing comfortably and in no distress. CV: RRR. Without m/r/g. Pulses intact. Cap refill <2seconds NEURO: Alert. PSYCH: Age appropriate behavior. Triage Information Reviewed: Yes Vital Signs: Initial Vital Signs Temp 97.2 F 09/26/18 15:05 Pulse 116 09/26/18 15:05 Resp 18 09/26/18 15:05 BP 142/49 09/26/18 15:05 Pulse Ox 99 09/26/18 15:05 Vital Signs Reviewed: Yes Respiratory Course/Dx - Course Course Of Treatment: CXR: IMPRESSION: No active cardiopulmonary disease is noted. No changes noted since October 15, 2016. EKG: Sinus bradycardia 46bpm. No STEMI as read by Dr. Gallo. Pt states that her pulse usually runs in the 50s and is typically low. She was given a duoneb treatment in the clinic and reported feeling less tightness in her chest and felt it easier to take a deep breath. We had a long conversation and I educated her about smoking, COPD, and sleep apnea. At this time I suspect she is suffering from some degree of COPD and may have had an apneic event last night. She is currently not on any inhalers, therefore I will start her with albuterol HFA daily and have her f/u with pulmonology for possible PFT and/or sleep study. - Differential Dx/Diagnosis Provider Diagnosis: Shortness of breath Discharge - Sign-Out/Discharge Documenting (check all that apply): Patient Departure All imaging exams completed and their final reports reviewed: Yes - Discharge Plan Condition: Stable Disposition: HOME Patient Education Materials: COPD (Chronic Obstructive Pulmonary Disease) (DC) , Chronic Bronchitis (DC), How Your Lungs Work (ED) Referrals: Vi Bermudez MD [Medical Doctor] - 2 Weeks Additional Instructions: If you develop a fever, shortness of breath, chest pain, new or worsening symptoms - please call your PCP or go to the ED immediately. Your blood pressure was high at todays visit. Please see your primary provider within 4 weeks for recheck and re-evaluation. Use the inhaler one puff twice a day, but you may use this every 4 hours IF NEEDED. The sooner you cut back or stop smoking, the better your lungs will feel. Please schedule an appointment with Dr. Bermudez (Lung Doctor) at the number below for follow up - Billing Disposition and Condition Condition: STABLE Disposition: Home - Attestation Statements Provider Attestation: Per institutional requirements, I have reviewed the chart, however, I was not consulted specifically or made aware of this patient by the midlevel provider. I did not personally evaluate, interact with , or disposition this patient.
[2018-09-26] MEDS ORDERED: Albuterol/Ipratropium NEB.SOL* Albuterol 2.5 MG/Ipratropium 0.5 MG 3 ML INH ONE (15:49)
[2018-09-26] MEDS ORDERED: Albuterol HFA INHALER* 8 gm MDI INH ONE (16:38)
== END 2018-09-26 16:57 | disposition home or self-care (01) ==
LOC: UCEAST 15:00
DX: R06.02 Shortness of breath (principal); R03.0 Elevated blood-pressure reading, without diagnosis of hypertension; E78.5 Hyperlipidemia, unspecified; I10 Essential (primary) hypertension; F17.210 Nicotine dependence, cigarettes, uncomplicated; Z88.5 Allergy status to narcotic agent; Z88.2 Allergy status to sulfonamides
CPT/HCPCS: 71046; 99212; A9270-GY; G0463

== ENCOUNTER 2019-05-22 13:11 | Emergency (ER) | payer BC ==
[2019-05-22 13:52] VITALS: BP 138/79
--- NOTE | 2019-05-22 14:07 | UC ---
Dizzy HPI HPI Summary: Patient is a 74-year-old female with the onset of near syncopal episode and left leg weakness which started at 1220 today. She states that her leg weakness has improved and she no longer feels dizzy. Her daughter says that her left leg weaknesses been waxing and waning since the onset of her symptoms today. The patient has a history of a CVA as well as high blood pressure and she is a smoker. She denies any headache. She denies any chest pain. She complains that she has been coughing for a number of days. Her daughter had to assist her in. She normally ambulates without assistance. - History Of Current Complaint Chief Complaint: UCGeneralIllness Stated Complaint: LIGHTHEADED,CONGESTION,LEFT LEG NUMBNESS Time Seen by Provider: 05/22/19 13:43 Hx Obtained From: Patient Onset/Duration: Sudden Onset - : Timing: Constant Severity Initially: Severe Severity Currently: Mild Pain Intensity: 3 Pain Scale Used: 0-10 Numeric Character: Lightheaded - felt like she would pass out at onset Aggravating Factor(s): Nothing Alleviating Factor(s): Other - spontaneeously removing Associated Signs And Symptoms: Positive: Unsteady Gait, Visual Changes - seeing spots. Negative: Nausea, Vomiting, Diaphoresis, Tinnitus, Chest Pain, SOB, Palpitations, Decreased Oral Intake - , Change In Medication, Change In Diet - That was her And - Allergies/Home Medications Allergies/Adverse Reactions: Allergies Allergy/AdvReac Type Severity Reaction Status Date / Time codeine Allergy Nausea Verified 09/26/18 15:10 lidocaine Allergy See Comment Verified 09/26/18 15:10 lisinopril Allergy Coughing Verified 09/26/18 15:10 Sulfa (Sulfonamide Allergy Rash Verified 09/26/18 15:10 Antibiotics) BANDAID/ADHESIVE TAPE Allergy SEVERE Uncoded 09/26/18 15:10 ITCHY RASH PERFUMES/HEAVY Allergy CHOKY Uncoded 09/26/18 15:10 SMELLS/FRAGRENCE FEELING, COUGH PMH/Surg Hx/FS Hx/Imm Hx Previously Healthy: Yes Endocrine History: Dyslipidemia - patient Cardiovascular History: Hypertension Neurological History: CVA - Surgical History Surgical History: Yes Surgery Procedure, Year, and Place: 07/13/2011 [facility] REMOVED FROM [facility], [facility]. 1971 GROWN IN UMBILICUS AREA, [facility] - Family History Known Family History: Positive: Hypertension, Blood Disorder - blood clots, Other - [place] - Social History Alcohol Use: None Substance Use Type: None Smoking Status (MU): Heavy Every Day Tobacco Smoker Type: Cigarettes Amount Used/How Often: < 1PPD Have You Smoked in the Last Year: Yes Household Exposure Type: Cigarettes Review of Systems All Other Systems Reviewed And Are Negative: Yes Constitutional: Positive: Negative Skin: Positive: Negative Eyes: Positive: Negative ENT: Positive: Nasal Discharge Respiratory: Positive: Cough Cardiovascular: Positive: Negative Gastrointestinal: Positive: Negative Genitourinary: Positive: Negative Motor: Positive: Weakness - left leg Musculoskeletal: Positive: Negative Neurological: Positive: Negative Psychological: Positive: Negative Physical Exam Triage Information Reviewed: Yes Appearance: Well-Appearing, No Pain Distress, Well-Nourished Vital Signs: Initial Vital Signs Temp 98.2 F 05/22/19 13:46 Pulse 65 05/22/19 13:46 Resp 16 05/22/19 13:46 BP 138/79 05/22/19 13:46 Pulse Ox 98 05/22/19 13:46 Vital Signs Reviewed: Yes Eyes: Positive: Conjunctiva Clear ENT: Positive: Hearing grossly normal - is. Negative: Nasal congestion, Nasal drainage, Trismus, Muffled voice, Hoarse voice Neck: Positive: Supple, Nontender, Other: - no bruits. She was Respiratory: Positive: Lungs clear, Normal breath sounds, No respiratory distress - onset she felt like she is, No accessory muscle use Cardiovascular: Positive: RRR, No Murmur - investigated resolved Neurological: Positive: Alert, Other: - NO facial droop NO pronator drift DTR lower extr ++++ and bilateral Unable to ambulate without assitance Psychological Exam: Normal Skin Exam: Normal Diagnostics - Laboratory Lab Results: FS 108 - EKG Cardiac Rate: NL Cardiac Rhythm: Sinus: Normal - patient is Ectopy: None ST Segment: Normal Dizzy Course/Dx - Course Course Of Treatment: MYESHA Murguia d/w Dr. Hopkins - Differential Dx/Diagnosis Provider Diagnosis: Near syncope, Weakness of left leg Discharge ED - Sign-Out/Discharge Documenting (check all that apply): Patient Departure All imaging exams completed and their final reports reviewed: No Studies - Discharge Plan Condition: Stable Disposition: TR[facility] Referrals: Olga Flores MD [Primary Care Provider] - - Billing Disposition and Condition Condition: STABLE Disposition: Trans Higher Lvl of Care Fac
== END 2019-05-22 14:30 | disposition short-term general hospital (02) ==
LOC: UCEAST 13:11
DX: R55 Syncope and collapse (principal); R53.1 Weakness; R05 Cough; I10 Essential (primary) hypertension; F17.210 Nicotine dependence, cigarettes, uncomplicated; Z91.09 Other allergy status, other than to drugs and biological substances; Z88.2 Allergy status to sulfonamides; Z88.8 Allergy status to other drugs, medicaments and biological substances; Z88.4 Allergy status to anesthetic agent; Z86.73 Personal history of transient ischemic attack (TIA), and cerebral infarction without residual deficits
CPT/HCPCS: 93005; 99213; G0463

== ENCOUNTER 2019-05-22 14:45 | Observation (INO) | payer BC ==
[2019-05-22] MEDS ORDERED: NS 0.9% 1000 ML** 1,000 ML IV ONE (15:00)
--- NOTE | 2019-05-22 15:02 | ED ---
Neurological HPI - HPI Summary HPI Summary: 74 y/o female presented to [facility] complaining of a loss of sensation in her left foot today 05/22/19 at 1220. In the room, she experienced a tingling sensation in her LLE. Pt endorses cold symptoms and coughed in the room, but denies GRAMAJO, vision changes, fever, and CP. She notes it hurts to talk. Weakness was present in the LLE initially but resolved. Pt has no Hx of HTN or FL. - History of Current Complaint Chief Complaint: EDNeurologicalDeficit Stated Complaint: WEAKNESS FROM CC Hx Obtained From: Patient Onset/Duration: Sudden Onset, Started hours ago Neurological Deficit Location: LLE Pain Intensity: 0 Pain Scale Used: 0-10 Numeric Character: Weak - LLE, resolved, Numbness/Tingling - LLE Associated Signs and Symptoms: Negative: Visual Changes, Headache, Fever, Chest Pain - Allergy/Home Medications Allergies/Adverse Reactions: Allergies Allergy/AdvReac Type Severity Reaction Status Date / Time codeine Allergy Nausea Verified 09/26/18 15:10 lidocaine Allergy See Comment Verified 09/26/18 15:10 lisinopril Allergy Coughing Verified 09/26/18 15:10 Sulfa (Sulfonamide Allergy Rash Verified 09/26/18 15:10 Antibiotics) BANDAID/ADHESIVE TAPE Allergy SEVERE Uncoded 09/26/18 15:10 ITCHY RASH PERFUMES/HEAVY Allergy CHOKY Uncoded 09/26/18 15:10 SMELLS/FRAGRENCE FEELING, COUGH Home Medications: Home Medications Ascorbic Acid TAB* [Vitamin C TAB*] 500 - 1,500 mg PO DAILY 05/22/19 [History Confirmed 05/22/19] Losartan TAB* [Cozaar TAB*] 100 mg PO DAILY 05/22/19 [History Confirmed 05/22/19 ] PMH/Surg Hx/FS Hx/Imm Hx Endocrine/Hematology History: Denies: Hx Diabetes, Hx Thyroid Disease Cardiovascular History: Reports: Hx Hypertension - ON MEDS, Other Cardiovascular Problems/Disorders - CHOLESTEROL CONTROL WITH MEDS Respiratory History: Reports: Other Respiratory Problems/Disorders - OCCASIONAL SINUS PROBLEMS, MAY BE RELATED TO SMOKING, TRYING TO QUIT Denies: Hx Asthma, Hx Chronic Obstructive Pulmonary Disease (COPD) GI History: Denies: Hx Ulcer Musculoskeletal History: Reports: Hx Arthritis - SPINE, BILATERAL HANDS, Hx Tendonitis - RIGHT SHOULDER-NO PROBLEMS NOW Sensory History: Reports: Hx Cataracts - BILATERAL, Hx Contacts or Glasses - GLASSES, Hx Glaucoma - VERY EARLY STAGES Opthamlomology History: Reports: Hx Cataracts - BILATERAL, Hx Contacts or Glasses - GLASSES, Hx Glaucoma - VERY EARLY STAGES Neurological History: Reports: Hx CVA - in 2008, according to Pt - Surgical History Surgery Procedure, Year, and Place: 07/13/2011 ABCESS REMOVED FROM BACK, [facility]. 1971 GROWN IN UMBILICUS AREA, [facility] Hx Anesthesia Reactions: No Infectious Disease History: Yes Infectious Disease History: Denies: Hx Clostridium Difficile, Hx Hepatitis, Hx Human Immunodeficiency Virus (HIV), Hx of Known/Suspected MRSA, Hx Shingles, Hx Tuberculosis, Hx Known/ Suspected VRE, Hx Known/Suspected VRSA, History Other Infectious Disease, Traveled Outside the [place] in Last 30 Days - Family History Known Family History: Positive: Hypertension, Blood Disorder - blood clots, Other - CA - Social History Alcohol Use: None Substance Use Type: Reports: None Smoking Status (MU): Heavy Every Day Tobacco Smoker Type: Cigarettes Amount Used/How Often: < 1PPD Have You Smoked in the Last Year: Yes Review of Systems Negative: Fever Negative: Chest Pain Positive: Cough Positive: Weakness - LLE, resolved, Paresthesia - LLE, Numbness - LLE. Negative : Headache All Other Systems Reviewed And Are Negative: Yes Physical Exam - Summary Physical Exam Summary: Constitutional: Well-developed, Well-nourished, Alert. (-) Distressed Skin: Warm, Dry HENT: Normocephalic; Atraumatic Eyes: Conjunctiva normal Neck: Musculoskeletal ROM normal neck. (-) JVD, (-) Stridor, (-) Tracheal deviation Cardio: Rhythm regular, rate normal, Heart sounds normal; Intact distal pulses; The pedal pulses are 2+ and symmetric. Radial pulses are 2+ and symmetric. (-) Murmur Pulmonary/Chest wall: Effort normal. (-) Respiratory distress, (-) Wheezes, (-) Rales Abd: Soft. (-) Tenderness, (-) Distension, (-) Guarding, (-) Rebound Musculoskeletal: (-) Edema Lymph: (-) Cervical adenopathy Neuro: Alert, Oriented x3, Strength normal, Cranial nerves II-XII are grossly intact. (-) Dysmetria, (-) Nystagmus, (-) Ataxia by finger to nose testing, (-) Sensory deficit. GCS 15 Psych: Mood and affect Normal Triage Information Reviewed: Yes Vital Signs On Initial Exam: Initial Vitals Temp Pulse Resp BP Pulse Ox 97 F 62 18 138/81 98 05/22/19 14:52 05/22/19 14:52 05/22/19 14:52 05/22/19 14:52 05/22/19 14:52 Vital Signs Reviewed: Yes Procedures - Sedation Patient Received Moderate/Deep Sedation with Procedure: No Diagnostics - Vital Signs Vital Signs Temp Pulse Resp BP Pulse Ox 05/22/19 14:52 97 F 62 18 138/81 98 - Laboratory Result Diagrams: 05/22/19 15:14 05/22/19 15:14 Lab Statement: Any lab studies that have been ordered have been reviewed, and results considered in the medical decision making process. - Radiology cxr Radiology Interpretation Completed By: Radiologist Summary of Radiographic Findings: IMPRESSION: NO ACTIVE CARDIOPULMONARY DISEASE IS NOTED. This report was reviewed by the ED physician. - CT head CT Interpretation Completed By: Radiologist Summary of CT Findings: IMPRESSION: NO EVIDENCE FOR GROSS ACUTE INFARCT, MASS EFFECT OR HEMORRHAGE. This report was reviewed by the ED physician. - EKG 1524 Cardiac Rate: Bradycardia EKG Rhythm: Sinus Bradycardia Summary of EKG Findings: Sinus bradycardia at 58bpm. Otherwise normal. Dr. Adler has reviewed and interpreted this EKG NIH Scale - NIH Scale Level of Consciousness: Alert/Keenly Responsive Ask Patient the Month and His/Her Age: Both Correct Ask Pt to Open/Close Eyes and Asset Manager/Release Non-Paretic Hand: Both Correctly Best Gaze (Only Horizontal Eye Movement): Normal Visual Field Testing: No Visual Loss Facial Paresis-Pt to Smile & Close Eyes or Grimace Symmetry: Normal/Symmetrical Motor Function - Right Arm: No Drift-Holds 10 Seconds Motor Function - Left Arm: No Drift-Holds 10 Seconds Motor Function - Right Leg: No Drift-Holds 10 Seconds Motor Function - Left Leg: No Drift-Holds 10 Seconds Sensory (Use Pinprick to Test Arms/Legs/Trunk/Face): Normal Best Language (Describe Picture, Name Items): No Aphasia Extinction and Inattention: No Abnormality Course/Dx - Course Course Of Treatment: 74 y/o female presented to [facility] complaining of a loss of sensation in her left foot today 05/22/19 at 1220. In the room, she experienced a tingling sensation in her LLE. Pt endorses cold symptoms and coughed in the room, but denies GRAMAJO, vision changes, fever, and CP. She notes it hurts to talk. Weakness was present in the LLE initially but resolved. Pt arrived at 1452. Dani greenfield was called from in the field. Pt last known well at 1220. Pt is on aspirin. Symptoms include unilateral numbness and tingling in LLE. Initial brain CT impression at [address] Dewey was consulted at 1536 and recommended admission. TPA not indicated due to NIH stroke scale of 0. Exam was normal. GCS 15. Bloodwork showed MCH H, MPV L, creatinine H, and Troponin I H at 0.05. EKG showed sinus bradycardia at 58bpm. Otherwise normal. CT head showed NO EVIDENCE FOR GROSS ACUTE INFARCT, MASS EFFECT OR HEMORRHAGE. X-ray chest impression: NO ACTIVE CARDIOPULMONARY DISEASE IS NOTED. Pt was given 1L IV NaCl. Pt was diagnosed with Pre-syncope, Elevated troponin, Bronchitis, Weakness of left lower extremity. Pt was admitted to [facility]. - Diagnoses Provider Diagnoses: Pre-syncope, Elevated troponin, Bronchitis, Weakness of left lower extremity During the Visit The Following Alert/Code Occurred: Dani Greenfield - Pt arrived at 1452. Dani greenfield was called from in the field. Pt last known well at 1220. Pt is on aspirin. Symptoms include unilateral numbness and tingling in LLE. Initial brain CT impression at [address] Dewey was consulted at 1536 and recommended admission. TPA not indicated due to NIH stroke scale of 0. - Physician Notifications Discussed Care Of Patient With: Karen Hubbard Time Discussed With Above Provider: 15:29 Instructed by Provider To: Other - Pt case was discussed with Dr. Hubbard, who agrees to admit the pt. Discharge ED - Sign-Out/Discharge Documenting (check all that apply): Patient Departure - admit - Discharge Plan Condition: Stable Disposition: ADMITTED TO [facility] Referrals: Olga Flores MD [Primary Care Provider] - - Attestation Statements Document Initiated by Scribe: Yes Documenting Scribe: Christiano Judd Provider For Whom Scribe is Documenting (Include Credential): Shahid Adler DO Scribe Attestation: Christiano Duarte, scribed for Shahid Adler DO on 05/22/19 at 1850. Status of Scribe Document: Ready
[2019-05-22 15:20] LABS: ABS Eosinophils 0.2 10^3/ul (0-0.6); ABS Lymphocytes 1.7 10^3/ul (1.0-4.8); ABS Monocytes 0.8 10^3/ul (0-0.8); ABS Neutrophils 3.8 10^3/ul (1.5-7.7); Eosinophil % 3.1 %; Hematocrit 44 % (35-47); Hemoglobin 15.1 g/dL (12.0-16.0); Lymphocyte % 25.7 %; Mean Corpuscular HGB Conc 34 g/dL (31-36); Mean Corpuscular Hemoglobin 33 pg (27-31); Mean Corpuscular Volume 96 fL (80-97); Mean Platelet Volume 6.8 fL (7.4-10.4); Nucleated Red Blood Cells % 0.1; Platelet Count 223 10^3/uL (150-450); Red Blood Count 4.61 10^6 /uL (3.70-4.87); Red Cell Distribution Width 13 % (10-15); White Blood Count 6.5 10^3/uL (3.5-10.8)
[2019-05-22 15:29] LABS: Activated Partial Thrombo Time 36.5 seconds (26.0-38.0); INR 0.98 (0.82-1.09)
[2019-05-22 15:39] LABS: ALT 18 U/L (7-52); AST 21 U/L (13-39); Albumin 4.3 g/dL (3.2-5.2); Albumin/Globulin Ratio 1.6 (1-3); Alkaline Phosphatase 69 U/L (34-104); Anion Gap 7 mmol/L (2-11); BUN/Creatinine Ratio 18.2 (8-20); Blood Urea Nitrogen 18 mg/dL (6-24); CO2 Carbon Dioxide 24 mmol/L (22-32); Calcium 9.3 mg/dL (8.6-10.3); Chloride 109 mmol/L (101-111); Cholesterol 161 mg/dL; EGFR Non-African American 54.5 (>60); Globulin 2.7 g/dL (2-4); Glucose 93 mg/dL (70-100); HDL Cholesterol 58.8 mg/dL; LDL Cholesterol 87 mg/dL; Potassium 3.9 mmol/L (3.5-5.0); Sodium 140 mmol/L (135-145); Triglycerides 76 mg/dL
[2019-05-22 15:45] LABS: Troponin I 0.05 ng/mL (<0.03)
[2019-05-22 15:50] LABS: C Reactive Protein 3.34 mg/L (<8.01)
--- NOTE | 2019-05-22 17:43 | CONS ---
CONSULTATION REPORT: DATE OF CONSULT: 05/22/19 PATIENT OF: Dr. Adler and Dr. Flores. HISTORY OF PRESENT ILLNESS: This is a 74-year-old right-handed woman who I was asked to see for a possible acute stroke. She notes that she has been sick with a cough and sinus congestion for the past 2 days' time and then at 12:20 was sitting in a reclining chair and her left leg got numb. She tried to lift it up and she could not pick it up without use of her arms. Quickly after that , she developed some numbness as well in the right leg. She is unclear whether there was any weakness there. There was no headache, visual changes. She did have a sensation of lightheadedness that occurred within minutes of the sensation and then symptoms resolved quickly and were gone by the time of arrival in the ER. She is not quite sure how long it lasted. She has had no symptoms in either arm. She has some chronic back pain and some mild neck pain in the past. She of note has had a history of stroke in 2008 with symptoms of slurred speech, difficulty walking, clumsy right hand and was seen by Dr. Sharpe, who thought she had possible lacunar stroke involving her brainstem and she was switched to aspirin and she has tolerated that well and remains on that. She had a workup at that time that included an MRI scan and there was a small left temporal sylvian fissure stroke at that point. Since then, she has had no neurological symptoms other than episodic lightheadedness. She gets some spasms and stiffness in her legs in the mornings. There has been no bowel or bladder dysfunction. PAST MEDICAL HISTORY: Other medical problems include hypertension and she is on losartan 100 mg daily. She is on Aggrenox 1 cap b.i.d. She has had hyperlipidemia and is on atorvastatin 20 mg a.m. She is on Norvasc 5 mg daily and vitamin C tablets up to 1500 mg a day. PAST SURGICAL HISTORY: She has had cataract procedures in the past back in 2012. ALLERGIES: She has allergies to PERFUMES, BAND-AID, SULFA, LISINOPRIL, LIDOCAINE, and CODEINE. FAMILY HISTORY: Noncontributory. No history of stroke in the family. SOCIAL HISTORY: She does not smoke, drink, or use drugs. PHYSICAL EXAM: Temperature 97, pulse 62, respirations 18, blood pressure 138/ 81. She had an NIH Stroke Scale of 0 done within 10 to 15 minutes of arrival to the emergency room. She was alert and oriented with normal speech and comprehension. Cranial nerves II through XII were intact. Fundi showed sharp discs. Motor exam revealed normal tone, strength, coordination including finger -to-nose and heel-to- adamson. Sensation intact to light touch. Reflexes were 4 with clonus at the right knee, 3+ in the left leg. Toes were equivocal. Reflexes were 2+ in the arms. Chest: Clear. Cardiovascular: Regular rate and rhythm. Abdomen was soft with positive bowel sounds. DIAGNOSTIC STUDIES/LAB DATA: Her CT scan I reviewed and was normal. Blood work includes normal CBC, INR, PTT. LDL was 87. Normal CMP otherwise. IMPRESSION AND PLAN: Bernie's symptoms of left leg numbness and weakness associated with lightheadedness and some symptoms on the right side did not sound like a stroke. Since it was on both legs and was associated with lightheadedness, it is possible that with the coughing that she has had and the brisk reflexes that she has on both legs in particular, she could have a myelopathy from cervical spine disease and I am checking a cervical MRI scan. I am checking an MRI scan of her brain to screen further for stroke, but she has no ongoing focal neurological symptoms and an NIH Stroke Scale of 0 at this point. For now, we are going to continue the Aggrenox which she has done well with for many years and we will see what her MRI scan shows. She was not a clot retrieval candidate at this point, but I have asked for carotid Dopplers to be done today. She will need a cardiac echo and I defer to the hospitalist and the ER doctor and I mentioned this to Dr. Adler that she has had what sounds like some palpitations or irregular heartbeats, but nothing that she noted for the past several months. Thank you for sharing her case. [id number]/[facility] #: [id number] ARYAN
[2019-05-22] MEDS ORDERED: Acetaminophen TAB* 325 MG PO PRN (18:41)
[2019-05-22] MEDS ORDERED: Enoxaparin(*) 40 MG/0.4 ML SYR SUBCUT SCH (20:00)
--- NOTE | 2019-05-22 20:45 | CONS ---
CONSULTATION REPORT: DATE OF CONSULT: 05/22/19 HISTORY OF PRESENT ILLNESS: The patient is a very pleasant 74-year-old right- handed female, who was reported to have experienced an episode of transient numbness in her both lower extremities. The patient reports that she has been having cold and coughing. She was sitting on a reclining chair and she felt that both legs got numb, left slightly worse than the right. The patient had difficulty moving her legs about for a short period of time, but then everything returned back to normal. The patient was brought to the emergency room and she was evaluated for stroke, requested to see the patient by Dr. Dewey because of MRI findings of the cervical spine consistent with cervical stenosis. The patient denies any weakness, numbness, or tingling of her extremities at this point. She is able ambulate without difficulty. She denies any urinary or GI incontinence. The patient was seen in the emergency room and is accompanied by her daughter. PAST MEDICAL HISTORY: 1. Hypertension. 2. Hyperlipidemia. PAST SURGICAL HISTORY: Cataract surgery. ALLERGIES: The patient is allergic to perfumes, BAND-AID, SULFA, LISINOPRIL, LIDOCAINE, and CODEINE. FAMILY HISTORY: Noncontributory. SOCIAL HISTORY: Tobacco negative, alcohol is negative. Recreational drug use negative. PHYSICAL EXAM: The patient is not in acute distress. She is awake, alert and oriented x3. Her pupils are equal and reactive. Cranial nerves II through XII are grossly intact. Motor 4 to 5/5 in all extremities. No pronator drift. Sensory grossly intact to light touch. Deep tendon reflexes +1 bilaterally. No clonus. No Babinski's. Straight leg raise is negative in the supine position. The patient has no tenderness to palpation of the thoracic or lumbar spine. She has free range of motion of the cervical spine. DIAGNOSTIC STUDIES/LAB DATA: The patient had an MRI of the brain that did not reveal evidence of ischemic stroke. The patient had an MRI of the cervical spine that revealed mild degenerative disk disease with significant stenosis at approximately C5-C6 level. There is no significant evidence of cord signal changes. ASSESSMENT: This is a very pleasant 74-year-old female with an episode of transient paresthesias of lower extremities with MRI findings consistent with cervical spondylosis and stenosis. PLAN/RECOMMENDATIONS: The patient at this point has been evaluated and admitted into the hospital. We will recommend MRI of the thoracic and lumbar spine. Based on the moderate degree of stenosis, it is difficult to explain her symptoms based on the MRI of the cervical spine. We will continue to follow with you. Thank you for allowing us to participate in the care of this patient. Please do not hesitate to contact our office in case if you have any further questions or concerns regarding the care of this patient. [id number]/[facility] #: [id number] ARYAN
--- NOTE | 2019-05-22 20:53 | HP ---
CC: Olga Flores MD * HISTORY AND PHYSICAL: DATE OF ADMISSION: 05/22/19 PRIMARY CARE PROVIDER: Olga Flores MD. ATTENDING PHYSICIAN: Christiano Davis MD * (dictated by RIANA Royal). CHIEF COMPLAINT: 1. Bilateral lower extremity paresthesias. 2. Lightheadedness. HISTORY OF PRESENT ILLNESS: Ms. Conrad is a 74-year-old female with a past medical history of hypertension, hyperlipidemia, CVA in 2008, current tobacco abuse, and obesity, who presented to the ER today with complaints of bilateral lower extremity paresthesias and lightheadedness. She states that she was sitting down to eat lunch. She put her foot on the stool and then felt a loss of sensation in the left leg as well as the right leg, although notes a greater loss of sensation in the left leg. She notes that she felt some lightheadedness and this was relieved when she gripped the arms of her chair. She notes that these symptoms lasted approximately 1 minute. After they dissipated, the patient thought that she would be unsteady on her feet. She tenuously got up to stand and had no difficulty with walking and noted that her sensation had returned to bilateral lower extremities. She notes that since this time, she has had intermittent leg paresthesias. She believes that these are sometimes associated with sitting. She denies dizziness, loss of consciousness or recent falls. She denies weakness, focal neurological deficits. She does complain of a cough, which she has had for years and has been worse in the last approximately 1 week, but denies fevers and chills. In the ER, the patient received a full workup including CBC and CMP, which was relatively benign except for creatinine of 0.99 and troponin of 0.05, which appears to be within the patient's baseline and LDL resulted at 87. Brain CT and chest x- ray are negative. MRI of the brain was unremarkable. Cervical spine MRI revealed degenerative disk disease C3 to C4 with broad based flattening of the thecal sac. The hospitalist team was asked to evaluate the patient for admission. PAST MEDICAL HISTORY: 1. Hypertension. 2. Hyperlipidemia. 3. CVA in 2008. 4. Tobacco abuse. 5. Obesity. 6. Glaucoma. 7. Osteoarthritis of the spine. PAST SURGICAL HISTORY: 1. Back sebaceous cyst. 2. Cheek sebaceous cyst. 3. Umbilical cyst. 4. Bilateral cataracts. HOME MEDICATIONS: 1. Amlodipine 10 mg p.o. daily. 2. Ascorbic acid 500 to 1500 mg p.o. daily. 3. Atorvastatin 20 mg p.o. daily. 4. Dipyridamole/aspirin 200/25 one cap p.o. b.i.d. 5. Losartan 100 mg p.o. daily. 6. Timolol 0.5% ophthalmic 1 drop to both eyes daily. DRUG ALLERGIES: CODEINE, LIDOCAINE, LISINOPRIL, SULFA, ADHESIVE, FRAGRANCE. FAMILY HISTORY: Mother had heart failure, angina and from what was thought to be a PE at the age of 60. Father in his 70s due to a lung disease. Sister of pancreatic cancer. The patient has had multiple siblings who of cancer including pancreatic, bladder, and bone cancer. She had 1 sister that had a CVA. No family history of diabetes. SOCIAL HISTORY: The patient smokes approximately 1 pack of cigarettes per day for the last 55 years. She does not use alcohol. 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 She is with 4 children. Her daughter lives with her in her home. In any event that she is unable to make her own medical decision, she has appointed her daughter, Tila Méndez, to be her surrogate decision maker. REVIEW OF SYSTEMS: A 14-point review of systems has been performed and all the pertinent positives and negatives are in the HPI. All other systems are negative. PHYSICAL EXAMINATION GENERAL: Ms. Conrad is a well-developed, well-nourished, obese, older white woman, who is sitting up in bed. She appears to be in no acute distress. She is breathing comfortably on room air. HEENT: PERRL. EOMI. Sclerae are nonicteric without injection. Hearing is grossly intact. Oral mucous membranes are moist. There are no lesions. The patient is edentulous. Pharynx is clear without erythema or exudate. Palate elevates symmetrically with the tongue at midline. PULMONARY: Symmetrical chest expansion without the use of accessory muscles. Clear to auscultation bilaterally. There is no wheeze. There is no rhonchi or rales. CARDIOVASCULAR: Regular rate and rhythm with S1, S2 present. There are no murmurs, rubs, clicks, or gallops. There is no JVD. There is no peripheral edema. ABDOMEN: Obese. Bowel sounds in all quadrants. Soft and nontender to palpation. MUSCULOSKELETAL: Full range of motion without pain or deformities. The length of the spine is nontender to palpation, although the patient has mild tenderness to palpation at the cervical area. NEURO: The patient is awake. She is alert and oriented x3 with cranial nerves II through XII are grossly intact. Sensation intact. Motor strength 5/5 bilaterally in the upper and lower extremities with equal claims sorter strength. DIAGNOSTIC STUDIES/LAB DATA: 1. CBC: WBC 6.5, hemoglobin 15.1, hematocrit 44, MCV 96, platelets 223. 2. CMP: Sodium 140, potassium 3.9, chloride 109, carbon dioxide 24, BUN 18, creatinine 0.99. Troponin 0.05. LDL 87. 3. Chest x-ray, impression: No active cardiopulmonary disease is noted. 4. CT brain without, impression: No evidence for gross acute infarct, mass effect, or hemorrhage. 5. MRI brain without, impression: No restriction or diffusion is noted. Microvascular change is noted on the FLAIR image. Left maxillary ethmoid sinusitis is noted. 6. MRI cervical spine, impression: Degenerative disk disease at C3 to C4 with broad based protrusion, flattening the thecal sac. At C5 to C6, spondylitic ridge flattens the thecal sac with left uncovertebral joint hypertrophy narrowing the left foramen and likely impinging upon the left exiting nerve root. At C6 to C7, spondylitic ridge flattens the thecal sac. No spinal cord abnormality is noted. ASSESSMENT AND PLAN: Ms. Conrad is a 74-year-old female with a past medical history of hypertension, hyperlipidemia, history of CVA in 2009, tobacco abuse, and obesity, who presented to the ER today with complaints of bilateral lower extremity paresthesias and lightheadedness that is intermittent in nature and occasionally positional. The patient will be admitted for: 1. Lightheadedness, bilateral lower extremity paresthesias. At this point, the patient has received a CT of the brain and an MRI of the brain both of which were unremarkable. CT of the C-spine reveals thecal sac flattening. Dr. Dewey is consulting and does not have a high suspicion for stroke. He is concerned for myelopathy from cervical disease. He recommends to continue Aggrenox. Imaging should include carotid Dopplers, echo. She will be placed on telemetry at admission. Dr. Leayh was also consulted and recommended thoracic and lumbar spine MRIs, which are pending. He plans to see the patient in consultation. 2. Hypertension. Continue amlodipine and losartan. 3. Hyperlipidemia. Continue atorvastatin. 4. Tobacco abuse. Nicotine patch. 5. Glaucoma. Continue Timolol. 6. DVT prophylaxis. According to the DVT Risk Assessment, the patient's scores 4 placing her at high risk. She has been started on Lovenox. 7. Code status: Full code. TIME SPENT: Approximately 60 minutes was spent on this admission, greater than half of that time was spent [id number] with the patient obtaining history and performing physical, and reviewing the plan of care. The case has been discussed with my attending, Dr. Davis, who is in agreement with the plan of care. RIANA ROYAL [id number]/[facility] #: [id number] ARYAN
[2019-05-22] MEDS: ASPIRIN PO SCH (21:53)
[2019-05-22] MEDS: DIPYRIDAMOLE PO SCH (21:53)
[2019-05-23 00:03] LABS: Urine Appearance Cloudy; Urine Bilirubin Negative (Negative); Urine Blood 1+ (Negative); Urine Color Yellow; Urine Glucose Negative (Negative); Urine Ketones Trace (Negative); Urine Nitrite Negative (Negative); Urine Protein Negative (Negative); Urine Specific Gravity 1.011 (1.010-1.030); Urine Urobilinogen Negative (Negative)
[2019-05-23 00:06] LABS: Urine Bacteria Absent (Absent); Urine Red Blood Cell 2+(6-10/hpf) (Absent); Urine Squamous Epithelial Cell Present (Absent); Urine White Blood Cell Trace(0-5/hpf) (Absent)
[2019-05-23 06:52] LABS: Cholesterol 148 mg/dL; HDL Cholesterol 48.3 mg/dL; LDL Cholesterol 83 mg/dL; Triglycerides 83 mg/dL
[2019-05-23] MEDS ORDERED: Atorvastatin* 20 MG TAB PO SCH (09:00)
[2019-05-23] MEDS ORDERED: Losartan TAB* 25 MG PO SCH (09:00)
[2019-05-23] MEDS ORDERED: amLODIPine TAB* 5 MG PO SCH (09:00)
[2019-05-23] MEDS ORDERED: Timolol 0.5% OPTH.SOL* BTL BOTH EYES SCH (09:00)
[2019-05-23] MEDS: ASPIRIN PO SCH (09:44)
[2019-05-23] MEDS: DIPYRIDAMOLE PO SCH (09:44)
--- NOTE | 2019-05-23 12:09 | PN ---
Subjective Date of Service: 05/23/19 Interval History: Admitted yesterday for LE weakness, pending MRI studies, carotid US, and TTE. Also had asymptomatic bradycardia overnight. Carotid US with critical stenosis. Images sent to [place]. Pending Neuro and CTA Neck. Patient feels well. Denies recurrence of symptoms that brought her in. Would like to go home. Objective Active Medications: Acetaminophen (Tylenol Tab*) 650 mg PO Q4H PRN PRN Reason: mild to moderate pain Amlodipine Besylate (Norvasc Tab*) 10 mg PO DAILY [facility] Last Admin: 05/23/19 09:42 Dose: 10 mg Atorvastatin Calcium (Lipitor*) 20 mg PO QAM [facility] Last Admin: 05/23/19 09:42 Dose: 20 mg Dipyridamole/Aspirin (Aggrenox 200/25*) 1 cap.er PO BID [facility] Last Admin: 05/23/19 09:44 Dose: 1 cap.er Enoxaparin Sodium (Lovenox(*)) 40 mg SUBCUT Q24H [facility] Last Admin: 05/22/19 21:53 Dose: 40 mg Losartan Potassium (Cozaar Tab*) 100 mg PO DAILY [facility] Last Admin: 05/23/19 09:42 Dose: 100 mg Timolol Maleate (Timoptic 0.5% Opth*) 1 drop BOTH EYES DAILY [facility] Last Admin: 05/23/19 11:12 Dose: 1 drop Vital Signs - 8 hr 05/23/19 07:25 Temperature 97.8 F Pulse Rate 57 Respiratory 12 Rate Blood Pressure 146/54 (mmHg) O2 Sat by Pulse 98 Oximetry Oxygen Devices in Use Now: None Appearance: well appearing, NAD, alert and pleasant Eyes: No Scleral Icterus Ears/Nose/Mouth/Throat: Clear Oropharnyx, Mucous Membranes Moist Neck: NL Appearance and Movements; NL JVP, Trachea Midline Respiratory: Symmetrical Chest Expansion and Respiratory Effort, Clear to Auscultation Cardiovascular: NL Sounds; No Murmurs; No JVD, RRR Abdominal: NL Sounds; No Tenderness; No Distention, No Hepatosplenomegaly Extremities: No Edema Skin: No Rash or Ulcers Neurological: Alert and Oriented x 3, NL Muscle Strength and Tone Result Diagrams: 05/22/19 15:14 05/22/19 15:14 Assess/Plan/Problems-Billing Assessment: 74W with CVA 2009, HTN, tobacco use, obesity, presents with brief episode of LE weakness and paresthesias, found with DDD, critical L ICA stenosis. Symptoms resolved without intervention. Plan to follow up with NSGY for DDD, and vascular NSGY in [place] for carotid stenosis. Neuro recommends switching Aggrenox to ASA/Plavix. Our consult spoke with Vascular NSGY in [place] who recommends outpatient follow up in 1 week.
[2019-05-23] MEDS ORDERED: Iodixanol* (CONTRAST) 320 MG/ML 100 ML SDV IV ONE (13:39)
[2019-05-23 13:59] LABS: Troponin I 0.04 ng/mL (<0.03)
--- NOTE | 2019-05-23 14:24 | ECHO ---
*[facility]* [place] [address] Fax #: [phone] Transthoracic Echocardiogram Patient: Bernie Conrad : 1945 Study Date: 05/23/2019 Age: 74 Gender: F HR: 53 bpm Height: 63 in /160 cm BSA: 1.91 m^2 Weight: 174.6 lb /79.4 kg BMI: 31 kg/m^2 *Communications Advisor: * Kamila Conrad RDCS RN *Referring Physician: * Joyce Mar *Reading Physician: * Jordi Garcia MD Indications: TIA. SOB. History: Cerebrovascular accident. Risk factors: Current tobacco use. Hypertension. Obese. Dyslipidemia. Conclusions Summary: - Left ventricle: Systolic function is normal. The estimated ejection fraction is 55-60%. Doppler parameters are consistent with abnormal left ventricular relaxation (grade 1 diastolic dysfunction). - Atrial septum: The septum appears lipomatous. Cannot exclude a patent foramen ovale by color flow Doppler. The patient did not want to have a bubble study performed. - Mitral valve: There is mild to moderate regurgitation. - Tricuspid valve: There is trace to mild regurgitation. Study data: Transthoracic echocardiogram. Procedure: Transthoracic echocardiography was performed. Image quality was fair. The study was technically limited due to body habitus and smoking history. The patient did not want to have a bubble study performed. Complete 2D, spectral Doppler, and color flow Doppler. Location: Bedside. Patient status: Observation. Patient room number: 446-02. No prior study is available for comparison. Rhythm: Bradycardia. PACs. Findings Left ventricle: The cavity size is mildly reduced. Systolic function is normal. The estimated ejection fraction is 55-60%. Wall motion is normal; there are no regional wall motion abnormalities. Doppler parameters are consistent with abnormal left ventricular relaxation (grade 1 diastolic dysfunction). Right ventricle: The cavity size is normal. Systolic function is normal. Ventricular septum: The outflow septum has a sigmoid appearance. Left atrium: The atrium is normal in size. Right atrium: The atrium is normal in size. Atrial septum: The septum appears lipomatous. Cannot exclude a patent foramen ovale by color flow Doppler. The patient did not want to have a bubble study performed. Mitral valve: The mitral valve annulus appears mildly calcified. The leaflets are mildly thickened. There is no evidence of stenosis. There is mild to moderate regurgitation. Aortic valve: Not well visualized. The leaflets are mildly thickened. There is no evidence of stenosis. There is no significant regurgitation. Tricuspid valve: The valve is structurally normal. There is no evidence of stenosis. There is trace to mild regurgitation. Pulmonic valve: Not well visualized. There is mild regurgitation. Aorta: Aortic root: The aortic root is not dilated. Ascending aorta: The ascending aorta is not visualized. Aortic arch: The aortic arch is not visualized. Pericardium: There is no significant pericardial effusion. Pulmonary arteries: Not well visualized. Systolic pressure is within the normal range, estimated to be 31 mm Hg. Systemic veins: Inferior vena cava: The vessel is normal in size. There is normal respiratory change in the IVC dimension. Measurements Left ventricle Value Ref Right atrium Value Ref AKOSUA, LAX (L) 3.4 cm 3.8 - ML dim, ES, A4C 3.1 cm 2.6 - 4.4 5.2 SI dim, ES, A4C 4.5 cm 3.4 - 5.3 ESD, LAX 2.5 cm 2.2 - Estimated RAP 3 mm Hg --------- 3.5 FS, LAX 27 % 27 - 45 Aortic valve Value Ref PW, ED (H) 1.1 cm 0.6 - Peak v, S 1.57 m/sec --------- 0.9 VTI, S 41.4 cm --------- IVS/PW, ED 0.96 -------- Mean grad, S 6.3 mm Hg --------- E', lat christie, TDI (L) 9.0 cm/sec >=10.0 Peak grad, S 9.8 mm Hg --- ------ E/e', lat christie, TDI 11 -------- LVOT/AV, VTI ratio 0.67 ------ --- E', med christie, TDI 9.0 cm/sec >=7.0 E/e', med christie, TDI 11 -------- Mitral valve Value Ref E', avg, TDI 9.0 cm/sec -------- Peak E 0.95 m/sec ------ --- E/e', avg, TDI 11 <=14 Peak A 0.74 m/sec --- ------ Decel time 188 ms --------- LVOT Value Ref Peak grad, D 3.6 mm Hg --------- Peak lsia, S 1.25 m/sec -------- Peak E/A ratio 1.27 --------- VTI, S 27.7 cm -------- Peak grad, S 6 mm Hg -------- Pulmonic valve Value Ref Mean grad, S 3 mm Hg -------- Peak v, S 0.59 m/sec --------- Peak grad, S 1.4 mm Hg --------- Ventricular septum Value Ref IVS, ED (H) 1.1 cm 0.6 - Tricuspid valve Value Ref 0.9 TR peak v 2.64 m/sec <=2.8 Right ventricle Value Ref Aortic root Value Ref AKOSUA minor ax, A4C 2.3 cm 1.9 - Root diam 2.8 cm <4.1 mid 3.5 Pressure, S 31 mm Hg -------- Pulmonary artery Value Ref Pressure, S 31.0 mm Hg --------- Left atrium Value Ref LA ID 2.6 cm -------- Inferior vena cava Value Ref SI dim ES, LAX 2.6 cm -------- Diam 1.9 cm --------- ML dim, A4C 3.6 cm -------- SI dim, A4C 4.4 cm -------- Vol, ES, 2-p 45 ml -------- Vol/bsa, ES, 2-p 24 ml/m^2 16 - 34 Legend: (L) and (H) herrera values outside specified reference range. Prepared and electronically signed by Jordi Garcia MD 05/23/2019 14:21
[2019-05-23 16:19] VITALS: BP 141/60
[2019-05-23] MEDS ORDERED: Aspirin EC TAB* 81 MG TAB.EC PO SCH (17:00)
[2019-05-23] MEDS ORDERED: Clopidogrel TAB* 75 MG PO SCH (17:00)
--- NOTE | 2019-05-24 03:36 | PN ---
NEUROLOGICAL FOLLOWUP NOTE: DATE OF VISIT: 05/23/19 PATIENT OF: Karissa Maradiaga MD. HISTORY: This is a 74-year-old woman seeing in followup of her left leg weakness and numbness yesterday in the right leg. Her symptoms have resolved and she has no ongoing complaints there. MEDICATIONS: Include: 1. Lipitor. 2. Aspirin. 3. Plavix 75 mg a day. 4. Lovenox subcu. 5. Cozaar 100 mg daily. 6. Norvasc 10 mg daily. PHYSICAL EXAMINATION: On exam, temperature 97.7, pulse 56, respiratory rate is 16, blood pressure 144/55. She is alert and oriented with normal speech and comprehension. Cranial nerves II through XII were normal. Motor exam revealed normal tone, strength. Reflexes remained brisk in her legs. Chest: Clear. Cardiovascular: Regular rate and rhythm. DIAGNOSTIC STUDIES/LAB DATA: Obtained a carotid Doppler, which showed abnormalities that were confirmed on the CTA namely left carotid critical stenosis with 20% right carotid stenosis. The left internal carotid stenosis is 99% plus. There is also atherosclerosis in the aortic arch. I had the films sent to [place] and spoke with Dr. Robbie Borden, the vascular neurosurgeon on-call for stroke neurology there. He reviewed the films in detail and since her symptoms were on the right, involved the left leg predominantly. This is unlikely to be a symptomatic stroke and did not feel she probably needed surgery. She definitely did not need the surgery acutely. He, however, wanted to see her as an outpatient and probably get an angiogram. Depending on the results of the angiogram, it is possible that she would need an elective surgery but most likely he thought she would be able to be followed clinically without intervention. I have also spoken to Dr. Leahy about her cervical MRI scan, which did show stenosis and raised the possibility of myelopathy. She is going to be seen as an outpatient significance the carotid may need to be fixed if he thinks she needs . Discussed with him , I would not get her back fixed or her neck fixed prior to fixing the carotids as the risk could be too high. Given her carotid stenosis even though she has not had any stroke symptoms, we are putting her on aspirin and Plavix until she sees the vascular surgeon next . Thank you for sharing her case. [id number]/[facility] #: [id number] MTDD
--- NOTE | 2019-05-24 04:27 | DS ---
CC: Dr. Olga Flores; Dr. Constantino Sharpe; Dr. Leahy; Dr. Dewey * DISCHARGE SUMMARY: DATE OF ADMISSION: 05/22/19 DATE OF DISCHARGE: 05/23/19 PRIMARY CARE PHYSICIAN: Dr. Olga Flores. OUTPATIENT NEUROLOGIST: Dr. Constantino Sharpe. PRIMARY DIAGNOSES: 1. Critical stenosis of the left carotid artery. 2. Degenerative disk disease of the spine. SECONDARY DIAGNOSES: 1. Hypertension. 2. History of cerebrovascular accident in 2008. 3. Active tobacco use. 4. Obesity. CONSULTS: Dr. Leahy of Neurosurgery and Dr. Dewey of Neurology. DISCHARGE MEDICATIONS: 1. Aspirin 81 mg daily. 2. Clopidogrel 75 mg daily. 3. Losartan 100 mg daily. 4. Atorvastatin 20 mg daily. 5. Amlodipine 10 mg daily. 6. Vitamin C 1000 mg daily. 7. Timolol drops to both eyes daily. HISTORY OF PRESENT ILLNESS: Ms. Conrad is a 74-year-old woman with history of stroke, hypertension, active tobacco use and obesity who is presenting with complaints of bilateral lower extremity paresthesias and lightheadedness. She states that she was seated to eat lunch, she then put her foot on a stool and felt a loss of sensation in both of her legs, although was more pronounced on the left leg. She notes that she felt some lightheadedness around this time and was relieved when she gripped the arms of her chair. These symptoms lasted approximately 1 minute. After they dissipated, the patient thought she may be unsteady on her feet and she cautiously got up; however, she had no difficulty walking and noticed that full sensation returned to bilateral lower legs. Since this episode, she has had intermittent leg paresthesias, which she thinks are sometimes associated with the sitting position. She denies dizziness, loss of consciousness, headache, recent falls. She reports a chronic cough for years and a possible new sinus infection with very mild symptoms of sinus pressure and congestion. HOSPITAL COURSE: In the emergency room, the patient's labs were notable only for a creatinine of 0.99, which is very mildly elevated, although baseline from 3 years ago is about 0.8. She also was noted to have a troponin of 0.05, which decreased to 0.04 by day of discharge and this was also noted to be her baseline from a couple of years ago. Brain CT was unremarkable as was the brain MRI. A cervical spine MRI revealed degenerative disk disease. So, the hospitalist team was asked to admit the patient. Neurology and Neurosurgery consulted on the patient and recommended MRI of the entire spine as well as an echo with Doppler and carotid ultrasound by next morning. The patient underwent MRI of total spine, which was revealing of degenerative disk disease and cervical spondylosis with stenosis. Her carotid ultrasound was concerning for very high grade critical stenosis in the left carotid bulb and proximal ICA , this was progressed from the prior study from 2008. A CT angiogram of the neck was recommended, which showed findings consistent with short segment high grade preocclusive stenosis of the left proximal internal carotid artery. Our neurology service here contacted [facility] at [place] who reviewed images that were pushed to [facility]. They recommended followup in 1 week for further outpatient studies as the patient is currently not symptomatic from this carotid lesion. Dr. Leahy of Neurosurgery recommended outpatient followup for degenerative disk disease and our neurosurgeon and neurologist believed that patient's presenting symptoms are more likely from a brief exacerbation of her known chronic degenerative disease and not newly found carotid stenosis. The patient denied recurrence of all symptoms and preferred to go home as soon as possible. She was amenable to following up in [place] in 1 week for further imaging. Our neurology service recommended discontinuation of Aggrenox and to switch to dual antiplatelets with aspirin and Plavix. Also of note, the patient experienced intermittent bradycardia, which appears as chronic for at least the last 10 years. She had no acute events on telemetry. Given her mildly positive troponin, Cardiology was called and they recommended no further workup as it did not appear that her low heart rate was responsible for her current neurologic symptoms. A transthoracic echocardiogram was with normal ejection fraction, possible grade 1 diastolic dysfunction and was otherwise unremarkable. The patient did not want to have a bubble study performed. PERTINENT STUDIES: CBC, coags and LFTs were unremarkable. BMP notable for creatinine of 0.99. Hemoglobin A1c 5.9. CRP 3. LDL 87, HDL [address] without evidence for gross acute infarct, mass effect or hemorrhage. Chest x-ray without active cardiopulmonary disease. The brain MRI without contrast is without restriction of diffusion noted, microvascular changes noted in the FLAIR images. Left maxillary and ethmoid sinusitis is noted. Cervical spine MRI with degenerative disk disease at C3 through C4 with broad- based protrusion flattening of the thecal sac at C5-C6, spondylitic ridge flattens the thecal sac without central or foraminal stenosis identified. Lumbar spine MRI with mild retrolisthesis of L2 on L3. Degenerative changes are noted diffusely within the lumbar spine, severe narrowing of the thecal sac from L2 to L3 through L4 to L5 through the broad based disk bulge protruding posterior to the vertebral margin at L5 to S1 causing effacement of the anterior epidural fat. Neuro foraminal narrowing identified diffusely within the lumbar spine with compression of the bilateral exiting L5 nerve roots with bilateral foraminal protrusions. Thoracic spine MRI with increased kyphosis of the thoracic spine, degenerative changes are identified diffusely within the thoracic spine at T5-6. There is a small right paracentral disk protrusion causing minimal narrowing of the ventral thecal sac and mild flattening of the right ventral border of the thoracic spinal root. Carotid bilateral ultrasound with findings consistent with a very high-grade critical stenosis in the left carotid bulb and proximal ICA. This has progressed from the prior study in 2008. Findings consistent with a 50% to 69% stenosis in the proximal right ICA, which has progressed from the prior study. CTA of neck notable for atherosclerosis. There is short segment loss of contrast enhancement of the proximal left ICA consistent with short segment high grade preocclusive stenosis, 99% plus by NASCET criteria with a 20% stenosis of the proximal right ICA by NASCET criteria. There is atherosclerosis of the aortic arch with suggestions of ostial stenosis of the left common carotid artery and left subclavian artery. Transthoracic echocardiogram with LV systolic function normal with EF 55% to 60% . Doppler parameters consistent with abnormal LV relaxation which is grade 1 diastolic dysfunction. Atrial septum appears lipomatous, but cannot exclude a patent foramen ovale by color flow Doppler as the patient did not want to have bubble study performed. Mitral valve with mild to moderate regurgitation, tricuspid valve with trace to mild regurgitation. DISCHARGE PLAN: For the stenosis of the left carotid artery, patient has been referred to the vascular neurosurgery team at [place]. The patient was strongly encouraged to pursue smoking cessation efforts and the relationship between tobacco use and atherosclerotic disease was explained to her. She was given an appointment on 05/30/19 and they reported they would call her for further details. Her Aggrenox was discontinued and she was instead prescribed aspirin 81 mg daily and clopidogrel 75 mg daily. For degenerative disk disease of her spine, which is likely the cause of her presenting symptoms, the patient is currently asymptomatic and was referred to follow up in outpatient clinic with Dr. Leahy. No other changes were made to her home medications. The patient was educated on return precautions, which include but are not limited to new focal weakness, lightheadedness or slurred speech. She should eat a healthy diet, low in processed foods and resume activity as tolerated. DISPOSITION: To home. CONDITION: Good. TIME SPENT: Approximately 60 minutes was spent on the discharge of this patient , more than half of which was spent with care coordination at bedside for interview and exam. [id number]/[facility] #: [id number] ARYAN
== END 2019-05-23 18:37 | disposition home or self-care (01) ==
LOC: ED 14:45 → MEDTELE 18:41
PROVIDERS: ADMIT Internal Medicine; ATTEND Internal Medicine
DX: R20.2 Paresthesia of skin (principal); R42 Dizziness and giddiness; I10 Essential (primary) hypertension; E78.5 Hyperlipidemia, unspecified; Z86.73 Personal history of transient ischemic attack (TIA), and cerebral infarction without residual deficits; F17.210 Nicotine dependence, cigarettes, uncomplicated; E66.9 Obesity, unspecified; H40.9 Unspecified glaucoma; M47.9 Spondylosis, unspecified; Z79.899 Other long term (current) drug therapy; Z79.82 Long term (current) use of aspirin
CPT/HCPCS: 36415; 70450; 70498; 70551; 71045; 72141; 72146; 72148; 80053; 80061; 81003; 81015; 83036; 83605; 84484; 85025; 85610; 85730; 86140; 87086; 93005; 93306; 93880; 96360; 96372; 99284; A9270-GY; G0378; J1650; Q9967

== ENCOUNTER 2019-07-11 12:02 | Inpatient (IN) | payer BC ==
[2019-07-11] MEDS ORDERED: NS 0.9% 1000 ML** 1,000 ML IV ONE (12:27)
--- NOTE | 2019-07-11 12:28 | ED ---
Neurological HPI - HPI Summary HPI Summary: 74 year old F with hx TIA arriving via private car to [facility] accompanied by daughter Tila and grandson Regulo presents after an episode of slurred speech , confusion, diminished sensation in her bilateral second to fifth digits starting at 0730 today 07/11/2019 after waking up this morning. Daughter states patient was talking to her grandson this morning and noted that patient had slurred speech. Daughter states it sounded like patient was talking with a thick tongue. Daughter reports patient was standing in kitchen, stumbling around , holding her left hand in her pant pocket, was trying to pull left hand out of pocket, holding creamer in right hand, dropping her pills and spilling drinks on the table. Patient continued to have slurred speech so she brought patient to the ED. Daughter states this episode lasted one hour and has since resolved. Last known well before this episode 2129 yesterday 07/09. Patient fell asleep in her chair last night around that time which is normal. She has been sleeping in a chair for years. Patient denies any fever, chills, erythema of eyes, sore throat, chest pain, shortness of breath, cough, abdominal pain, nausea/vomiting , dysuria, hematuria, myalgia, edema, rash, dizziness. Medications reviewed. Allergies noted. Recently had work done on carotid artery at [facility] 06/12/2019. She reports hx TIA 10/14/2008. She states she felt hazey then, and had right arm and right leg weakness, and right facial droop. Home Medications Medication Instructions Recorded Confirmed Type amLODIPine TAB* [Norvasc 5 mg TAB*] 10 mg PO DAILY 05/08/12 07/11/19 History Atorvastatin* [Lipitor 20 MG*] 20 mg PO QAM 04/08/13 07/11/19 History Timolol 0.5% OPTH.PATRICK* [Timoptic 1 drop BOTH EYES DAILY 02/10/17 07/11/19 History 0.5% Opth*] Ascorbic Acid TAB* [Vitamin C 500 - 1,500 mg PO DAILY 05/22/19 07/11/19 History TAB*] Losartan TAB* [Cozaar TAB*] 100 mg PO DAILY 05/22/19 07/11/19 History Aspirin TAB* [Aspirin 325 MG TAB*] 325 mg PO DAILY 07/11/19 07/11/19 History - History of Current Complaint Chief Complaint: EDNeurologicalDeficit Stated Complaint: AMS THIS AM , Time Seen by Provider: 07/11/19 12:27 Hx Obtained From: Patient, Family/Felt Carbonizer - daughter Onset/Duration: Started hours ago - 0730 today 07/11/2019, Resolved Timing: Intermittent Episodes Lasting: - 1 hour Current Severity: None Pain Intensity: 0 Pain Scale Used: 0-10 Numeric Aggravating: Nothing Alleviating: Nothing - Allergy/Home Medications Allergies/Adverse Reactions: Allergies Allergy/AdvReac Type Severity Reaction Status Date / Time codeine Allergy Nausea Verified 09/26/18 15:10 lidocaine Allergy See Comment Verified 09/26/18 15:10 lisinopril Allergy Coughing Verified 09/26/18 15:10 Sulfa (Sulfonamide Allergy Rash Verified 09/26/18 15:10 Antibiotics) BANDAID/ADHESIVE TAPE Allergy SEVERE Uncoded 09/26/18 15:10 ITCHY RASH PERFUMES/HEAVY Allergy CHOKY Uncoded 09/26/18 15:10 SMELLS/FRAGRENCE FEELING, COUGH Home Medications: Home Medications amLODIPine TAB* [Norvasc 5 mg TAB*] 10 mg PO DAILY 05/08/12 [History Confirmed 07/11/19] Atorvastatin* [Lipitor 20 MG*] 20 mg PO QAM 04/08/13 [History Confirmed 07/11/19 ] Timolol 0.5% OPTH.PATRICK* [Timoptic 0.5% Opth*] 1 drop BOTH EYES DAILY 02/10/17 [ History Confirmed 07/11/19] Ascorbic Acid TAB* [Vitamin C TAB*] 500 - 1,500 mg PO DAILY 05/22/19 [History Confirmed 07/11/19] Losartan TAB* [Cozaar TAB*] 100 mg PO DAILY 05/22/19 [History Confirmed 07/11/19 ] Aspirin TAB* [Aspirin 325 MG TAB*] 325 mg PO DAILY 07/11/19 [History Confirmed 07/11/19] PMH/Surg Hx/FS Hx/Imm Hx Endocrine/Hematology History: Denies: Hx Diabetes, Hx Thyroid Disease Cardiovascular History: Reports: Hx Hypertension - ON MEDS, Other Cardiovascular Problems/Disorders - CHOLESTEROL CONTROL WITH MEDS Denies: Hx Pacemaker/ICD Respiratory History: Reports: Other Respiratory Problems/Disorders - OCCASIONAL SINUS PROBLEMS, MAY BE RELATED TO SMOKING, TRYING TO QUIT Denies: Hx Asthma, Hx Chronic Obstructive Pulmonary Disease (COPD) GI History: Denies: Hx Ulcer Musculoskeletal History: Reports: Hx Arthritis - SPINE, BILATERAL HANDS, Hx Tendonitis - RIGHT SHOULDER-NO PROBLEMS NOW Sensory History: Reports: Hx Cataracts - BILATERAL, Hx Contacts or Glasses - readers, Hx Glaucoma - VERY EARLY STAGES Denies: Hx Hearing Aid Opthamlomology History: Reports: Hx Cataracts - BILATERAL, Hx Contacts or Glasses - readers, Hx Glaucoma - VERY EARLY STAGES Neurological History: Reports: Hx Transient Ischemic Attacks (TIA) - October 2008 Psychiatric History: Denies: Hx Panic Disorder - Surgical History Surgery Procedure, Year, and Place: 07/13/2011 ABCESS REMOVED FROM BACK, [facility]. 1971 GROWN IN UMBILICUS AREA, [facility] Hx Anesthesia Reactions: No Infectious Disease History: No Infectious Disease History: Denies: Hx Clostridium Difficile, Hx Hepatitis, Hx Human Immunodeficiency Virus (HIV), Hx of Known/Suspected MRSA, Hx Shingles, Hx Tuberculosis, Hx Known/ Suspected VRE, Hx Known/Suspected VRSA, History Other Infectious Disease, Traveled Outside the [place] in Last 30 Days - Family History Known Family History: Positive: Hypertension, Blood Disorder - blood clots, Other - CA - Social History Alcohol Use: None Substance Use Type: Reports: None Smoking Status (MU): Heavy Every Day Tobacco Smoker Type: Cigarettes Amount Used/How Often: < 1PPD Have You Smoked in the Last Year: Yes Review of Systems Negative: Fever, Chills Negative: Erythema Negative: Sore Throat Negative: Chest Pain Negative: Shortness Of Breath, Cough Negative: Abdominal Pain, Vomiting, Nausea Negative: dysuria, hematuria Negative: Myalgia, Edema Negative: Rash Neurological/Mental Status: Negative - Dizziness, Other - confusion, diminished sensation in her bilateral second to fifth digits Positive: Slurred Speech All Other Systems Reviewed And Are Negative: Yes Physical Exam - Summary Physical Exam Summary: Constitutional: Well-developed, Well-nourished, Alert. (-) Distressed Skin: Warm, Dry HENT: Normocephalic; Atraumatic Eyes: Conjunctiva normal Neck: Musculoskeletal ROM normal neck. (-) JVD, (-) Stridor, (-) Tracheal deviation Cardio: Rhythm regular, rate normal, Heart sounds normal; Intact distal pulses; The pedal pulses are 2+ and symmetric. Radial pulses are 2+ and symmetric. (-) Murmur Pulmonary/Chest wall: Effort normal. (-) Respiratory distress, (-) Wheezes, (-) Rales Abd: Soft. (-) Tenderness, (-) Distension, (-) Guarding, (-) Rebound Musculoskeletal: (-) Edema Lymph: (-) Cervical adenopathy Neuro: Alert, Oriented x3, Strength normal, Cranial nerves II-XII are grossly intact. (-) Dysmetria, (-) Nystagmus, (-) Ataxia by finger to nose testing, (-) Sensory deficit. GCS 15. NIH 0. Psych: Mood and affect Normal Triage Information Reviewed: Yes Vital Signs On Initial Exam: Initial Vitals Temp Pulse Resp BP Pulse Ox 97.7 F 62 16 178/69 100 07/11/19 12:07 07/11/19 12:07 07/11/19 12:07 07/11/19 12:07 07/11/19 12:07 Vital Signs Reviewed: Yes Procedures - Sedation Patient Received Moderate/Deep Sedation with Procedure: No Diagnostics - Vital Signs Vital Signs Temp Pulse Resp BP Pulse Ox 07/11/19 12:07 97.7 F 62 16 178/69 100 - Laboratory Result Diagrams: 07/11/19 12:50 07/11/19 12:50 Lab Statement: Any lab studies that have been ordered have been reviewed, and results considered in the medical decision making process. - Radiology CXR Radiology Interpretation Completed By: Radiologist - IMPRESSION: NO ACTIVE CARDIOPULMONARY DISEASE IS NOTED. ED physician has reviewed this imaging report. - CT Head/Neck CTA CT Interpretation Completed By: Radiologist - IMPRESSION: 1. LOSS OF CHACON- WHITE DIFFERENTIATION OF THE RIGHT INSULA SUGGESTIVE OF SUBACUTE NONHEMORRHAGIC INFARCT. 2. ATHEROSCLEROSIS 3. APPROXIMATELY 20% SHORT SEGMENT RIGHT INTERNAL CAROTID ARTERY STENOSIS BY NASCET CRITERIA. 4. NO LEFT INTERNAL CAROTID ARTERY STENOSIS BY NASCET CRITERIA. 5. MURAL IRREGULARITY OF THE INTRACRANIAL CIRCULATION SUGGESTIVE OF INTRACRANIAL ATHEROSCLEROSIS. ED physician has reviewed this imaging report. - EKG 1324 Cardiac Rate: Bradycardia - 47 BPM Summary of EKG Findings: Slow sinus arrhythmia 47 BPM. No STEMI. ED physician has reviewed and interpreted this EKG NIH Scale - NIH Scale Level of Consciousness: Alert/Keenly Responsive Ask Patient the Month and His/Her Age: Both Correct Ask Pt to Open/Close Eyes and Music Engineer/Release Non-Paretic Hand: Both Correctly Best Gaze (Only Horizontal Eye Movement): Normal Visual Field Testing: No Visual Loss Facial Paresis-Pt to Smile & Close Eyes or Grimace Symmetry: Normal/Symmetrical Motor Function - Right Arm: No Drift-Holds 10 Seconds Motor Function - Left Arm: No Drift-Holds 10 Seconds Motor Function - Right Leg: No Drift-Holds 10 Seconds Motor Function - Left Leg: No Drift-Holds 10 Seconds Limb Ataxia-Must be out of Proportion to Weakness Present: Absent Sensory (Use Pinprick to Test Arms/Legs/Trunk/Face): Normal Best Language (Describe Picture, Name Items): No Aphasia Dysarthria (Read Several Words): Normal Extinction and Inattention: No Abnormality Total Score: 0 Re-Evaluation - Re-Evaluation First Eval Re-Evaluation Time: 17:10 Comment: Dr. Larkin recommends admission to hospitalist Third Eval Re-Evaluation Time: 17:15 Comment: Dr. Hubbard agrees to admit patient Course/Dx - Course Course Of Treatment: 74 y/o F with hx TIA in 2008 presents after an episode of slurred speech, confusion, diminished sensation in her bilateral second to fifth digits starting at 0730 today 07/11/2019 after waking up this morning. This episode lasted for 1 hour and patient has returned to her baseline per daughter. Last known well before this episode 0 last night. Recent work done on carotid artery at [facility] 06/12/2019. Bloodwork results with no significant abnormalities. Urinalysis results with no significant abnormalities. An EKG shows slow sinus arrhythmia 47 BPM. No STEMI. CXR shows NO ACTIVE CARDIOPULMONARY DISEASE IS NOTED. Head/Neck CTA shows 1. LOSS OF CHACON-WHITE DIFFERENTIATION OF THE RIGHT INSULA SUGGESTIVE OF SUBACUTE NONHEMORRHAGIC INFARCT. 2. ATHEROSCLEROSIS 3. APPROXIMATELY 20% SHORT SEGMENT RIGHT INTERNAL CAROTID ARTERY STENOSIS BY NASCET CRITERIA. 4. NO LEFT INTERNAL CAROTID ARTERY STENOSIS BY NASCET CRITERIA. 5. MURAL IRREGULARITY OF THE INTRACRANIAL CIRCULATION SUGGESTIVE OF INTRACRANIAL ATHEROSCLEROSIS. In the ED course, the patient was given normal saline fluids. Dr. Larkin came to the ED to evaluate the patient. He recommends admission to the hospitalist. Spoke with Dr. Hubbard. She agrees to admit patient. - Physician Notifications Discussed Care Of Patient With: Gianni Larkin Time Discussed With Above Provider: 16:00 Instructed by Provider To: MD Will See In ED Discharge ED - Sign-Out/Discharge Documenting (check all that apply): Patient Departure - Discharge Plan Condition: Stable Disposition: ADMITTED TO [facility] Referrals: Olga Flores MD [Primary Care Provider] - - Attestation Statements Document Initiated by Scribe: Yes Documenting Scribe: Jessa Quezada Provider For Whom Scribe is Documenting (Include Credential): Ty Payton MD Scribe Attestation: IJessa, scribed for Ty Payton MD on 07/11/19 at 1833.
[2019-07-11 12:58] LABS: ABS Basophils 0.1 10^3/ul (0-0.2); ABS Eosinophils 0.3 10^3/ul (0-0.6); ABS Lymphocytes 1.5 10^3/ul (1.0-4.8); ABS Monocytes 0.6 10^3/ul (0-0.8); ABS Neutrophils 4.3 10^3/ul (1.5-7.7); Eosinophil % 4.8 %; Hematocrit 44 % (35-47); Hemoglobin 14.6 g/dL (12.0-16.0); Lymphocyte % 21.6 %; Mean Corpuscular HGB Conc 34 g/dL (31-36); Mean Corpuscular Hemoglobin 31 pg (27-31); Mean Corpuscular Volume 93 fL (80-97); Platelet Count 280 10^3/uL (150-450); Red Blood Count 4.71 10^6 /uL (3.70-4.87); Red Cell Distribution Width 13 % (10-15); White Blood Count 6.8 10^3/uL (3.5-10.8)
[2019-07-11 13:06] LABS: Activated Partial Thrombo Time 35.3 seconds (26.0-38.0); INR 1.03 (0.82-1.09)
[2019-07-11 13:16] LABS: Albumin 4.3 g/dL (3.2-5.2); Albumin/Globulin Ratio 1.4 (1-3); BUN/Creatinine Ratio 23.6 (8-20); Calcium 9.7 mg/dL (8.6-10.3); EGFR African American 74.6 (>60); EGFR Non-African American 61.7 (>60); HDL Cholesterol 65.5 mg/dL; Potassium 4.2 mmol/L (3.5-5.0); Total Bilirubin 0.6 mg/dL (0.2-1.0); Total Protein 7.3 g/dL (6.4-8.9)
[2019-07-11 13:18] LABS: Troponin I 0.01 ng/mL (<0.03)
[2019-07-11] MEDS ORDERED: Iohexol 350* (CONTRAST) 500 ML MDV IV ONE (14:19)
[2019-07-11 14:51] LABS: Urine Appearance Clear; Urine Bilirubin Negative (Negative); Urine Blood 1+ (Negative); Urine Color Straw; Urine Glucose Negative (Negative); Urine Ketones Negative (Negative); Urine Nitrite Negative (Negative); Urine Protein Negative (Negative); Urine Specific Gravity 1.005 (1.010-1.030); Urine Urobilinogen Negative (Negative)
[2019-07-11 14:53] LABS: Urine Bacteria 1+ (Absent); Urine Red Blood Cell 1+(3-5/hpf) (Absent); Urine Squamous Epithelial Cell Present (Absent); Urine White Blood Cell Trace(0-5/hpf) (Absent)
[2019-07-11] MEDS ORDERED: Acetaminophen TAB* 325 MG PO PRN (17:44)
[2019-07-11 17:55] LABS: TSH (Thyroid Stimulating Horm) 1.53 mcIU/mL (0.34-5.60)
[2019-07-11] MEDS ORDERED: Clopidogrel TAB* 75 MG PO ONE (18:26)
--- NOTE | 2019-07-11 20:05 | CONS ---
CONSULTATION REPORT: DATE OF CONSULT: 07/11/19 CONSULTING PROVIDER: Dr. Payton. REASON FOR CONSULT: Left-sided tingling sensation. CHIEF COMPLAINT: Transient left-sided tingling sensation. HISTORY OF PRESENT ILLNESS: Ms. Bernie Conrad is a 74-year-old right-handed female, who presented to [facility] with a transient symptom of slurred speech and left hand tingling. The patient is currently asymptomatic. The patient stated that she has never had any symptoms, but her daughter witnessed an episode of slurred speech and the patient was clearly complaining of left hand weakness as well as tingling sensation in the tips of her fingers. The symptoms lasted for [address] at home at 7:30 on . The patient stated that she was last known well at 7 a.m. when she woke up without any symptoms. She was trying to reach objects with the left hand and was having some proprioception problems. She also had her left hand tucked in and not using it as much according to her daughter. Again, all the symptoms have resolved. The patient presented to the ED because the patient's daughter insisted on bringing her here. She currently denied any headaches, visual disturbance, slurred speech, focal weakness, or paresthesias. The patient is currently taking aspirin 325 mg daily. The patient was on Aggrenox at some point this past year. She was recently diagnosed with high- grade stenosis of the left ICA on 06/05/19, and underwent left CEA at the [facility]. She was placed on aspirin 325 mg since June. The patient also has known history of 50% to 69% stenosis in the proximal right ICA. NIH stroke scale 0. PAST MEDICAL HISTORY: Hypertension, dyslipidemia, carotid disease status post left CEA. She had a stroke in the left temporal sylvian fissure in the past. PAST SURGICAL HISTORY: Cataract procedure, CEA. MEDICATIONS: 1. Amlodipine 10 mg daily. 2. Atorvastatin 20 mg p.o. daily. 3. Losartan 100 mg p.o. daily. 4. Aspirin 325 mg p.o. daily. ALLERGIES: PERFUMES, BAND-AID, SULFATE, LISINOPRIL, LIDOCAINE, and CODEINE. FAMILY HISTORY: No family history of stroke or seizures. SOCIAL HISTORY: The patient does not smoke. She lives with her daughter and grandchild. She is retired. PHYSICAL EXAM: Vitals: Temperature of 97.7, pulse 65, respiratory rate of 20, oxygen saturation of 96, blood pressure of 173/73. General: Well-nourished, well- developed female, in no acute distress. Head: Atraumatic, normocephalic without any obvious abnormality. Neck is supple and symmetrical with no carotid bruit. She does have a well-healed surgical scar in the left side of the neck from recent CEA. Cardiovascular: Regular rate and rhythm with normal S1, S2. Pulmonary: Clear to auscultation bilaterally. Extremities: Normal range of motion with no cyanosis or edema. Skin: No skin lesion or laceration. Psych: Normal mood and broad affect. Neurological Examination: Mental Status: Awake, alert, oriented to person, place, time, general circumstances. Her speech and language were assessed and found to be normal with no evidence of any dysarthria, aphasia, naming problems, or fluency/ repetition. Cranial Nerves: Pupils equal, round, reactive to light, extraocular muscles are intact, there is no facial asymmetry. She has widening of the palpebral fissure on the left. Tongue is symmetric and midline with no atrophy or fasciculation. Motor Examination: 5/5 strength in the upper and lower extremities with normal tone throughout. Sensation is intact to light touch and pinprick throughout. Coordination: Normal [id number] and heel-to - adamson testing bilaterally. Reflexes 1+ throughout, 0 at the ankles. Gait: Wide based. Normal stance. DIAGNOSTIC STUDIES/LAB DATA: Labs, imaging, and other diagnostic testing: WBC of 6.8, hemoglobin of 14.6, hematocrit of 44, platelet count of 280, INR is 1.03 , BUN and creatinine is 23. LDL is 87. Urinalysis is negative for pyuria. CT of the head showed a small subacute hypodensity in the insular region suggestive of a small subacute infarction on the right side. CTA showed no evidence of large vessel occlusion. The CTA also showed patent left ICA. ASSESSMENT: Ms. 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 The patient was found to have a right insular cortex small infarction. 1. Acute middle cerebral artery vascular territory ischemic infarction, most likely due to [id number] embolization from proximal right internal carotid artery stenosis. Other etiologies include cardioembolic strokes. NIH stroke scale 0. She is not a candidate for IV tPA given that she is outside the therapeutic window plus her NIH is 0. She is not a candidate for mechanical thrombectomy since she does not have any large vessel occlusion. Modified Karen score is 0. 2. Recent carotid endarterectomy. She was placed on aspirin 325 and atorvastatin of 20. 3. Hypertension. RECOMMENDATIONS: Admit to the hospitalist service for further observation and stroke workup. Please obtain an MRI of the brain without contrast, which was ordered already, to evaluate for other etiologies of stroke versus cardioembolic stroke, which will show multi-vascular distribution infarction. Please switch her aspirin to 81 mg and add Plavix for at least 3 months. Recommend neuro checks every 4 hours. Recommend PT/OT/FILM EDITOR to evaluate and treat , although if she continues to be asymptomatic, there is no need for further therapy services. Please perform a dysphagia screen at bedside. Please increase her atorvastatin to 40 mg nightly. Please repeat a transthoracic echo with bubble study. Depending on the results, we may need a transesophageal echocardiogram for further evaluation of her most recent strokes and TIA. We need to make sure she does not have any potential thrombus where the treatment modality would change as she may require anticoagulation therapy. DVT prophylaxis with SCD. Maintain permissive hypertension with systolic blood pressure between 140 to less than 220 within the next 24 hours. I will continue to follow. [id number]/[facility] #: [id number] ARYAN
[2019-07-11] MEDS: Enoxaparin(*) 40 MG/0.4 ML SYR SUBCUT SCH (20:28)
--- NOTE | 2019-07-11 20:39 | HP ---
CC: Dr. Olga Flores; Dr. Karen Hubbard* HISTORY AND PHYSICAL: DATE OF ADMISSION: 07/11/19 PRIMARY CARE PROVIDER: Olga Flores MD ATTENDING PHYSICIAN: Karen Hubbard MD* (dictated by RIANA Velazquez). CHIEF COMPLAINT: Dysarthria and hemiparesis. HISTORY OF PRESENT ILLNESS: Ms. Conrad is a 74-year-old female with past medical history of hypertension, hyperlipidemia, history of TIA in 2008, history of tobacco abuse, who presented to the ER today at the request of her daughter with complaints of dysarthria and hemiparesis. The daughter relays much of the story. She reports that the patient went to bed at 2100 last night. When she awoke at 0700, she was dysarthric with hemiparesis. The daughter cannot quite remember the sidedness, but notes that the patient was dropping pills and could not grasp objects properly. She notes that she had one hand in her pocket and would not pull it out to shut the fridge door while the other hand was holding multiple objects and she was trying to shut the fridge with her elbow. The daughter thinks that it was her right side that she was neglecting while the ER reports that this was her left side. Regardless, the patient's daughter, August notes that her symptoms persisted. The patient was not aware that anything was abnormal. The patient did report that she had diminished sensation in the left first through fourth digits distally. She reports she had no vision changes or impaired gait, although the daughter notes that she did have some abnormalities of gait. Upon arrival, the patient's NIH stroke scale was 0, therefore, tPA was not advised due to resolution of symptoms. In the ER, the patient received a full workup. Laboratory was obtained and was relatively unremarkable. Chest x-ray was unremarkable. CTA of the head and neck showed suggestion of subacute non-hemorrhagic right insular infarct, atherosclerosis, and right internal carotid stenosis, 20%. Left internal carotid artery without stenosis, suggestion of intracranial atherosclerosis. Hospitalist team was asked to evaluate the patient for admission. PAST MEDICAL HISTORY: 1. Hypertension. 2. Hyperlipidemia. 3. Obesity. 4. History of tobacco abuse. 5. History of TIA in 2008. 6. Glaucoma. 7. Left carotid artery stenosis, status post carotid endarterectomy on at [facility]. PAST SURGICAL HISTORY: Sebaceous cheek and umbilical cyst removal, bilateral cataracts. MEDICATIONS: Home medications: 1. Amlodipine 10 mg p.o. daily. 2. Ascorbic acid daily. 3. Aspirin 325 mg p.o. daily. 4. Atorvastatin 20 mg p.o. daily. 5. Losartan 100 mg p.o. daily. 6. Timolol 1 drop to both eyes daily. DRUG ALLERGIES: CODEINE, nausea; LIDOCAINE, tremors; LISINOPRIL, coughing; SULFA, rash; ADHESIVE, rash; FRAGRANCE, cough. FAMILY HISTORY: Mother had heart failure and PE. Father had lung disease. The patient had one sister, who from pancreatic cancer and one sister with a history of CVA. The patient also has a family history of bladder cancer and bone cancer. SOCIAL HISTORY: The patient quit smoking on 05/22/19. Prior to that she smoked for 55-pack years. She rarely uses alcohol, approximately twice per year. She does not use illicit drugs. She is with 4 children. She works at [employer]. She lives with her daughter, Tila Lemus. In the event that she is unable to make her own medical decision, she has appointed her daughter, Tila Lemus, to be her surrogate decision maker. REVIEW OF SYSTEMS: A 14-point review of systems has been performed and all the pertinent positives and negatives are in the HPI. All other systems are negative. PHYSICAL EXAMINATION GENERAL: Ms. Conrad is a well-developed, well-nourished, obese, older white female, who is sitting up in bed. She is pleasant, cooperative, and appropriate. HEENT: Normocephalic and atraumatic. Face is symmetrical. PERRL. EOMI. Nonicteric sclerae. Hearing is grossly intact. Oral mucous membranes are moist. There are no lesions. Pharynx is clear. Tongue is at midline. Palate elevates symmetrically. There is an incision noted to the left lateral neck from a carotid endarterectomy. Incision site is without erythema or drainage. Site is approximated by a glue that is partially peeling, but still intact and covering the surface of the incision site. PULMONARY: Symmetrical chest expansion without the use of accessory muscles. Bilateral lungs are clear to auscultation without rhonchi, rales, or wheeze. CARDIOVASCULAR: Regular rate and rhythm with S1 and S2 present. No murmurs, rubs, clicks, or gallops. There is no JVD. There is no peripheral edema. ABDOMEN: Obese. Bowel sounds in all 4 quadrants. Soft and nontender to palpation. NEUROLOGIC: The patient is awake. She is alert and oriented x3. Her cranial nerves II through XII are grossly intact. She is able to move all of her extremities. She has a motor strength of 5/5 bilaterally in upper and lower extremities. Motor strength is equal. Amalgamator strength is equal. DIAGNOSTIC STUDIES/LAB DATA: 1. CBC: WBC 6.8, hemoglobin 14.6, hematocrit 44, MCV 93, platelets 280. 2. CMP: Sodium 137, potassium 4.2, chloride 106, carbon dioxide 23, BUN 21, creatinine 0.89, glucose 106, lactic 0.7. Total bilirubin of 0.60, AST of 20, ALT of 16, alkaline phosphatase of 81. Troponin is 0.01. LDL 87. B12 is 973. TSH is 1.53. 3. Chest x-ray, impression: No active cardiopulmonary disease is noted. 4. CTA of the head and neck, impression: Loss of greenfield and white differentiation of the right insula suggestive of subacute nonhemorrhagic infarct. Atherosclerosis. Approximately, 20% short segment right internal carotid artery stenosis by NASCET criteria. No left internal carotid artery stenosis by NASCET criteria. Mural irregularity of the intracranial circulation suggestive of intracranial atherosclerosis. ASSESSMENT AND PLAN: Ms. Conrad is a 74-year-old female with a past medical history of hypertension, hyperlipidemia, history of tobacco abuse, obesity, history of transient ischemic attack, who presented to the ER today with complaints of dysarthria and hemiparesis. The patient will be admitted in observation for: 1. Dysarthria, sided weakness. There is some discrepancy as to which side the patient had weakness on, but her daughter does note that she had weakness on one side with associated dysarthria upon waking this morning. She notes that this lasted several hours, but resolved to prior to arrival at the ER. Upon arrival, the patient's NIH stroke scale was 0. Neurology has been consulted and has made recommendations. CTA of the head was obtained and shows right insular subacute infarct. The patient will receive aspirin 81 mg and Plavix 75 mg daily. She will continue neuro-checks. She has been admitted on telemetry. An MRI of the brain has been ordered. Risk stratification with hemoglobin A1c and a.m. lipid panel. PT and OT have been ordered, although it does not appear that she has a deficit at this time, although on exam, she does not have a deficit. 2. Hypertension. Continue amlodipine and losartan as at home. 3. Hyperlipidemia. Continue atorvastatin 20 mg. The patient's lipids will be redrawn in the morning. 4. Left carotid stenosis, status post left carotid endarterectomy. The patient is one month postoperative left carotid endarterectomy at [place]. She was advised to take 325 mg of aspirin daily, this has been continued and she will be placed on dual-antiplatelet therapy. 5. History of tobacco abuse. The patient quit smoking on 05/22/19. She does not request any replacement aids at this time. 6. Glaucoma. Continue eye drops. 7. DVT prophylaxis: According to the DVT Risk Assessment, the patient's scores 4, placing her at high risk. She has been started on Lovenox. 8. Code status is full code. TIME SPENT: Approximately 60 minutes was spent on this admission, greater than half of that time was spent [id number] with the patient obtaining history and performing physical, and reviewing the plan of care. The case has been discussed with my attending, Dr. Hubbard, who is in agreement with the plan of care. RIANA WATKINS [id number]/CPS #: [id number] ARYAN
[2019-07-12 06:10] LABS: HDL Cholesterol 61.1 mg/dL
[2019-07-12] MEDS: amLODIPine TAB* 5 MG PO SCH (08:29)
[2019-07-12] MEDS: Losartan TAB* 25 MG PO SCH (08:30)
[2019-07-12] MEDS: Clopidogrel TAB* 75 MG PO SCH (08:30)
[2019-07-12] MEDS ORDERED: Atorvastatin* 20 MG TAB PO ONE (08:48)
[2019-07-12] MEDS ORDERED: Aspirin 81 mg CHEW TAB* 81 MG TAB.CHEW PO ONE (08:49)
[2019-07-12] MEDS ORDERED: Timolol 0.5% OPTH.SOL* BTL BOTH EYES SCH (09:00)
[2019-07-12] MEDS ORDERED: Aspirin TAB* 325 MG PO SCH (09:00)
[2019-07-12] MEDS ORDERED: Aspirin 81 mg CHEW TAB* 81 MG TAB.CHEW PO SCH ×2 (09:00)
[2019-07-12] MEDS ORDERED: Atorvastatin* 20 MG TAB PO SCH (09:00)
[2019-07-12] MEDS: Atorvastatin* 40 MG TAB PO SCH (09:05)
--- NOTE | 2019-07-12 10:01 | ECHO ---
*[facility]* [place] [address] Fax #: [phone] Transthoracic Echocardiogram Patient: Bernie Conrad : 1945 Study Date: 07/12/2019 Age: 74 Gender: F HR: 60 bpm Height: 63 in /160 cm BSA: 1.85 m^2 Weight: 179.6 lb /81.6 kg BMI: 31.9 kg/m^2 *Early Childhood Teacher: Isabella Forman [facility] *Referring Physician: * Gianni Larkin *Reading Physician: * Salazar Eddy MD Indications: TIA. History: Transient ischemic attack. Atherosclerosis of the left carotid artery with recent endarterectomy. Risk factors: Hypertension. Dyslipidemia. Conclusions Summary: - Left ventricle: The cavity size is at the lower limits of normal. Wall thickness is mildly increased. Systolic function is normal. The estimated ejection fraction is 60-65%. Wall motion is normal; there are no regional wall motion abnormalities. - Right ventricle: The cavity size is normal. Systolic function is normal. - Left atrium: The atrium is normal in size. - Atrial septum: Negative bubble study. - Pulmonary arteries: Systolic pressure is within the normal range. - No significant valvular abnormalities noted. Recommendations: Compared to 05/2019, findings are similar. Study data: Transthoracic echocardiogram. Procedure: Transthoracic echocardiography was performed. Image quality was fair. A bubble study was performed. Complete 2D, spectral Doppler, and color flow Doppler. Location: Bedside. Patient status: Inpatient. Patient room number: 444 01. Rhythm: Bradycardia. Findings Left ventricle: The cavity size is at the lower limits of normal. Wall thickness is mildly increased. Systolic function is normal. The estimated ejection fraction is 60-65%. Wall motion is normal; there are no regional wall motion abnormalities. Left ventricular diastolic function parameters are normal. Right ventricle: The cavity size is normal. Systolic function is normal. Left atrium: The atrium is normal in size. Right atrium: The atrium is normal in size. Atrial septum: A PFO is not demonstrated by color Doppler or agitated saline contrast. Negative bubble study. Mitral valve: The leaflets are mildly thickened. There is no evidence of stenosis. There is trace regurgitation. Aortic valve: The annulus is mildly calcified. The leaflets are mildly thickened. There is no evidence of stenosis. There is no significant regurgitation. Tricuspid valve: The leaflets are normal thickness. There is no evidence of stenosis. There is trace regurgitation. Pulmonic valve: Not well visualized. There is no significant regurgitation. Aorta: The aortic root appears normal. The aortic arch appears normal. Pericardium: There is no significant pericardial effusion. Pulmonary arteries: Not well visualized. Systolic pressure is within the normal range. Systemic veins: Inferior vena cava: The vessel is normal in size. There is (>= 50%) respiratory change in the IVC dimension. Measurements Left ventricle Value Ref Aortic valve continued Value Ref AKOSUA, LAX (L) 3.6 cm 3.8 - 5.2 Peak grad, S 10.0 mm Hg --------- ESD, LAX 2.3 cm 2.2 - 3.5 LVOT/AV, VTI 0.74 --------- FS, LAX 37 % 27 - 45 ratio PW, ED, LAX (H) 1.1 cm 0.6 - 0.9 E', lat christie, TDI 10.1 cm/sec >=10.0 Mitral valve Value R ef E/e', lat christie, 9 Peak E 0.86 m/sec ---- ----- TDI Peak A 0.66 m/sec --------- E', med christie, TDI (L) 6.9 cm/sec >=7.0 Decel time 182 ms - -------- E/e', med christie, 12 Peak grad, D 3.0 mm Hg ---- ----- TDI Peak E/A ratio 1.3 --------- E', avg, TDI 8.5 cm/sec E/e', avg, TDI 10 <=14 Tricuspid valve Value R ef TR peak v 2.2 m/sec <=2.8 LVOT Value Ref Peak RV-RA grad, 19 mm Hg --------- Peak lisa, S 1.3 m/sec S VTI, S 29.0 cm Peak grad, S 7 mm Hg Aortic root Value Ref Mean grad, S 3 mm Hg Root diam 2.7 cm <4.0 Root max 1.4 cm/m^2 1.4 - 2.2 Ventricular septum Value Ref diam/bsa, ED IVS, ED (H) 1.2 cm 0.6 - 0.9 Ascending aorta Value Ref Right ventricle Value Ref AAo AP diam, S 2.2 cm --------- AKOSUA, LAX 2.4 cm AAo AP diam/bsa, 1.2 cm/m^2 --------- AKOSUA minor ax, A4C 3.1 cm 1.9 - 3.5 S mid Pressure, S 22 mm Hg Aortic arch Value Ref Arch diam 2.2 cm --------- Left atrium Value Ref Arch diam/bsa 1.2 cm/m^2 --------- AP dim, ES 3.30 cm 2.70 - 3.80 Decending aorta Value Ref ML dim, A4C 4.1 cm Zenon peak lisa 0.65 m/sec --------- SI dim, A4C 5.2 cm Vol/bsa, ES, A/L 25 ml/m^2 16 - 34 Pulmonary artery Value Ref Pressure, S 22.0 mm Hg --------- Right atrium Value Ref SI dim, ES 4.4 cm 3.4 - 5.3 Inferior vena cava Value Ref ML dim, ES, A4C 3.5 cm 2.6 - 4.4 Diam 1.8 cm --------- Estimated RAP 3 mm Hg Pulmonary veins Value Ref Aortic valve Value Ref Peak v, S 0.53 m/sec --------- Christie diam, ED 1.9 cm Peak v, D 0.44 m/sec --------- Peak v, S 1.6 m/sec Peak S/D ratio 1.2 --------- VTI, S 39.2 cm A rev duration 98 ms --------- Mean grad, S 5.0 mm Hg Legend: (L) and (H) herrera values outside specified reference range. Prepared and electronically signed by Salazar Eddy MD 07/12/2019 10:00
--- NOTE | 2019-07-12 10:52 | PN ---
Subjective Date of Service: 07/12/19 Interval History: States that she feels well today, has no neurological deficit. Nursing reports that she is bradying into the mid 30's, though remains asymptomatic. Telestrips show that she is occasionally going into a junctional rhythm. Family History: Unchanged from Admission Social History: Unchanged from Admission Past Medical History: Unchanged from Admission Objective Active Medications: Acetaminophen (Tylenol Tab*) 650 mg PO Q4H PRN PRN Reason: mild to moderate pain Amlodipine Besylate (Norvasc Tab*) 10 mg PO DAILY [facility] Last Admin: 07/12/19 08:29 Dose: 10 mg Aspirin (Aspirin 81 Mg Chew Tab*) 81 mg PO DAILY [facility] Atorvastatin Calcium (Lipitor*) 40 mg PO QAM [facility] Last Admin: 07/12/19 09:05 Dose: Not Given Clopidogrel Bisulfate (Plavix Tab*) 75 mg PO DAILY [facility] Last Admin: 07/12/19 08:30 Dose: 75 mg Enoxaparin Sodium (Lovenox(*)) 40 mg SUBCUT Q24H [facility] Last Admin: 07/11/19 20:28 Dose: 40 mg Losartan Potassium (Cozaar Tab*) 100 mg PO DAILY [facility] Last Admin: 07/12/19 08:30 Dose: 100 mg Timolol Maleate (Timoptic 0.5% Opth*) 1 drop BOTH EYES DAILY [facility] Last Admin: 07/12/19 08:31 Dose: 1 drop Vital Signs - 8 hr 07/12/19 07/12/19 07/12/19 03:15 07:23 08:00 Temperature 97.8 F 98.1 F Pulse Rate 56 47 Respiratory 16 14 Rate Blood Pressure 139/54 143/53 (mmHg) O2 Sat by Pulse 97 97 97 Oximetry Oxygen Devices in Use Now: None Appearance: Pale, well developed older woman seen sitting up in bed, no acute distress. Eyes: No Scleral Icterus, PERRLA Ears/Nose/Mouth/Throat: NL Teeth, Lips, Gums, Clear Oropharnyx Neck: NL Appearance and Movements; NL JVP, Trachea Midline Respiratory: Symmetrical Chest Expansion and Respiratory Effort, Clear to Auscultation Cardiovascular: NL Sounds; No Murmurs; No JVD, RRR, No Edema Abdominal: NL Sounds; No Tenderness; No Distention Lymphatic: No Cervical Adenopathy Extremities: No Edema, No Clubbing, Cyanosis Skin: No Rash or Ulcers, No Nodules or Sclerosis Neurological: Alert and Oriented x 3 Lines/Tubes/Other Access: Clean, Dry and Intact Peripheral IV Result Diagrams: 07/11/19 12:50 07/11/19 12:50 Assess/Plan/Problems-Billing Assessment: This is a74 year old female with a PMH of TIA, HN and HLD who was admitted on for CVA. - Patient Problems (1) Bradycardia Current Visit: Yes Status: Acute Code(s): R00.1 - BRADYCARDIA, UNSPECIFIED SNOMED Code(s): 91048553 Comment: - Heart rate tends to run in the 50-60's. Has been bradying into the 30's and occasionally switching into a junctional rhythm, asymptomatic. Cardiology called. (2) CVA (cerebral vascular accident) Current Visit: Yes Status: Acute Code(s): I63.9 - CEREBRAL INFARCTION, UNSPECIFIED SNOMED Code(s): 347268134 Comment: - Having no residual deficits, though was having left sided neglect. Neurology consulted, is currently on dual anitplatelet therap with ASA and plavix. Did well with physical therapy d occupational therapy, does ot require any rehab. Can swallow safely. Neurochecks Q4H. (3) HTN (hypertension) Current Visit: Yes Status: Acute Code(s): I10 - ESSENTIAL (PRIMARY) HYPERTENSION SNOMED Code(s): 45509609 Comment: -Adequately controlled with losartan. (4) HLD (hyperlipidemia) Current Visit: Yes Status: Acute Code(s): E78.5 - HYPERLIPIDEMIA, UNSPECIFIED SNOMED Code(s): 91099723 Comment: -Increased atorvastatin from 20mg to 40mg due to recent endarectomy and CVA. Educated about risk of myalgias. (5) History of left-sided carotid endarterectomy Current Visit: Yes Status: Acute Code(s): Z98.890 - OTHER SPECIFIED POSTPROCEDURAL STATES SNOMED Code(s): 084793914 Comment: -Had an endarectomy one month ago. Had been on 325mg of ASA. Now is decreased to 81mg due to concurrent plavix, as per Neuro. (6) Glaucoma Current Visit: Yes Status: Acute Code(s): H40.9 - UNSPECIFIED GLAUCOMA SNOMED Code(s): 02246174 Comment: -Continue timolol. (7) Glucose intolerance Current Visit: Yes Status: Acute Code(s): E74.39 - OTHER DISORDERS OF INTESTINAL CARBOHYDRATE ABSORPTION SNOMED Code(s): 72418029 Comment: -Hgb A1C is 6.2%. Educated her about lifestyle changes to prevent the developement of diabetes. (8) DVT (deep venous thrombosis) Current Visit: Yes Status: Acute Code(s): I82.409 - ACUTE EMBOLISM AND THOMBOS UNSP DEEP VN UNSP LOWER EXTREMITY SNOMED Code(s): 029083380 Comment: -On lovenox (9) Full code status Current Visit: Yes Status: Acute Code(s): Z78.9 - OTHER SPECIFIED HEALTH STATUS SNOMED Code(s): 619385177 Status and Disposition: Condition: Fair Disposition: Admit OBV to 4S. Attending: Dior Pérez
--- NOTE | 2019-07-12 12:15 | PN ---
Subjective Date of Service: 07/12/19 Length of Stay: 1 Days Neurology is following for stroke. Interval History: The patient continues to deny any symptoms. She denied headaches, visual disturbance, weakness, or paresthesia. She is tolerating the new dose and combination of aspirin and Plavix. She is requesting to go home. The patient had runs of bradycardia with her heart rate dropping to the 40's yesterday. Labs, imaging, and other diagnostic testing: Platelet: 280 LDL: 94 Vitamin B12: 973 TSH: 1.53 CT and CTA head and neck 07/11/19: Loss of [place]-white differentiation of the right insular suggestive of subacute nonhemorrhagic infarct. Atherosclerosis. Approximately 20% short segment right internal carotid stenosis. No Left carotid artery stenosis. Mural irregularity of the intracranial circulation to suggest intracranial atherosclerosis. MRI brain without contrast 07/10: Acute to early subacute ischemic infarct involving the right insula extending to the right parietal lobe within the right MCA territory. 2D TTE: EF 60-65%. Left atrium is normal in size. no PFO. no significant valvular changes. Review of Systems: Denied CP, SOB, or palpitations. Family History: Unchanged from Admission Social History: Unchanged from Admission Past Medical History: Unchanged from Admission Objective Active Medications: Acetaminophen (Tylenol Tab*) 650 mg PO Q4H PRN PRN Reason: mild to moderate pain Amlodipine Besylate (Norvasc Tab*) 10 mg PO DAILY [facility] Last Admin: 07/12/19 08:29 Dose: 10 mg Aspirin (Aspirin 81 Mg Chew Tab*) 81 mg PO DAILY [facility] Atorvastatin Calcium (Lipitor*) 40 mg PO QAM [facility] Last Admin: 07/12/19 09:05 Dose: Not Given Clopidogrel Bisulfate (Plavix Tab*) 75 mg PO DAILY [facility] Last Admin: 07/12/19 08:30 Dose: 75 mg Enoxaparin Sodium (Lovenox(*)) 40 mg SUBCUT Q24H [facility] Last Admin: 07/11/19 20:28 Dose: 40 mg Losartan Potassium (Cozaar Tab*) 100 mg PO DAILY [facility] Last Admin: 07/12/19 08:30 Dose: 100 mg Timolol Maleate (Timoptic 0.5% Opth*) 1 drop BOTH EYES DAILY [facility] Last Admin: 07/12/19 08:31 Dose: 1 drop Vital Signs 03/09/2407/11/19 07/11/19 12:07 13:04 13:07 Temperature 97.7 F Pulse Rate 62 61 58 Respiratory 16 Rate Blood Pressure 178/69 179/81 (mmHg) O2 Sat by Pulse 100 98 98 Oximetry 07/11/19 07/11/19 07/11/19 14:33 14:34 15:04 Temperature Pulse Rate 63 55 65 Respiratory Rate Blood Pressure 173/73 (mmHg) O2 Sat by Pulse 98 97 96 Oximetry 07/11/19 07/11/19 07/11/19 17:25 17:35 18:00 Temperature Pulse Rate 60 49 59 Respiratory Rate Blood Pressure 175/85 136/61 (mmHg) O2 Sat by Pulse 91 96 98 Oximetry 07/11/19 07/11/19 07/11/19 18:04 20:00 20:10 Temperature 97.6 F 98.6 F Pulse Rate 59 59 Respiratory 18 18 Rate Blood Pressure 196/79 159/64 196/79 (mmHg) O2 Sat by Pulse 98 98 Oximetry 07/11/19 07/11/19 07/12/19 23:15 23:18 03:15 Temperature 97.5 F 97.8 F Pulse Rate 48 56 Respiratory 16 16 Rate Blood Pressure 125/50 139/54 (mmHg) O2 Sat by Pulse 98 98 97 Oximetry 07/12/19 07/12/19 07:23 08:00 Temperature 98.1 F Pulse Rate 47 Respiratory 14 Rate Blood Pressure 143/53 (mmHg) O2 Sat by Pulse 97 97 Oximetry Intake and Output Last 24 Hours 07/10/19 07/11/19 07/12/19 07/13/19 06:59 06:59 06:59 06:59 Intake Total 1000 Balance 1000 Weight 184 lb 6.4 oz Intake: IV Fluids 1000 Oral 0 Oxygen Devices in Use Now: None Neurology Exam: General: Well nourished, well developed, and in no acute distress HEENT: Normocephelic/atraumatic, sclera anicteric, mucous membranes moist Neck: Supple Chest: Clear to auscultation bilaterally Cardiovascular: Regular rate and rhythm without murmurs, rubs, gallops Extremities: No clubbing, cyanosis, or edema Neurological Findings: NIHSS: 0 Awake, alert, and oriented to person, place, and time. Speech: fluent without dysarthria, repetition intact Cranial Nerve: PERRL, EOM intact, VFF, no nystagmus, face symmetric bilaterally , facial sensation intact, hearing intact to finger rub bilaterally, palate elevates symmetrically, tongue midline, SCM and Trapezius s/s. Motor: s/s throughout, proximal and distal extremities x4 tone/bulk normal Sensation: intact to LT/PP bilaterally upper and lower extremities Deep Tendon Reflex: 1+ symmetric in the upper/lower extremities, Babinski - down going Finger to nose, rapid alternating movements intact without tremor, no dysdiadochokinesia Gait: intact with good arm swing and stride Result Diagrams: 07/11/19 12:50 07/11/19 12:50 Assessment/Plan Ms. Bernie Conrad is a 74-year-old right-handed female who is functional and continues to work at [employer], who has a significant medical history of hypertension , dyslipidemia, ICA stenosis s/p recent left CEA, TIA in May 2019, who presented to [facility] [place] on 07/11/2019 with transient episode of dysarthria and left hand paresthesia that resolved. She was not a candidate for alteplase therapy since her NIHSS was 0, and not a candidate for mechanical thrombectomy due to no evidence of a large vessel occlusion. NIHSS today is 0. mRS is 0. 1. 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 The mechanism is most likely due to atherosclerosis given her risk factors and age. However, cardioemboli should also be considered, although less likely. Recommendations: - We reduced aspirin to 81 mg and started clopidogrel 75 mg daily for 21 days. Please discontinue aspirin on 08/01/2019 since she had the stroke on aspirin. - She needs an outpatient loop recorder placed to evaluate atrial arryhthmia. If abnormal, please switch her antiplatelet therapy to anticoagulation therapy like Eliquis. - Since her LDL is over 70, we have increased the atorvastatin from 20 to 40. - She stopped smoking May 2019. I praised her for that. - Stroke education was completed - She does not need PT/OT/OSTEOLOGY TEACHER evaluation and treatment since she is asymptomatic. - No longer does she need DVT prophylaxis if she is being discharged today. 2. Bradycardia. Barbara has consulted cardiology to evaluate for junctional rhythm. Junctional bradycardia has been reported in the literature to be potentially associated with ischemic stroke. While insular stroke, particularly on the right, can contribute to cardiac consequences including arrhythmia, it's not the case here since she had bradycardia on prior EKGs. Defer further recommendations to cardiology. Follow-up with Dr. Dewey in 6-8 weeks. I will arrange the follow-up with our neurology staff.
[2019-07-12] MEDS: Enoxaparin(*) 40 MG/0.4 ML SYR SUBCUT SCH (17:31)
--- NOTE | 2019-07-12 17:37 | CONSULT ---
Subjective Date of Service: 07/12/19 Interval History: Admission Date: 07/11/19 Consult date 07/12/2019 Service: Hospitalist CC: Left sided sensation abnormalities, slurred speech found with CVA Reason for consult: Telemetry abnormalities. HISTORY OF PRESENT ILLNESS: Ms. Bernie Conrad is a 74-year-old woman admitted with slurred speech and left arm sensory changes and found with an acute CVA. During the course of hospitalization she was found with sinus node disease. Telemetry reviewed shows brief periods of ectopic atrial escape and sinus arrest with reliable junctional escape just < 40 bpm and asymptomatic. There is no evidence of ventricular escape. There are no prolonged pauses. She denies any syncope or seizure. She related several years of exertional fatigue and dyspnea. She ambulated 4 times around [facility] hallway and was unable to get her HR > 70 bpm and there were several periods when she last [place] sinus rhythm on exertion and heart rate dropped into 50's.. She relates 2 to 3 years of sudden lightheadedness episodes in which she would grab onto something quickly and this would last for seconds. This has been less frequent recently and only happened once shortly after a left carotid endarterectomy on . She does take timolol for glaucoma and is followed by Rosario Pena O.D. and has seen Dr. Pierson in the past. Her daughter, grandson are at bedside. PAST MEDICAL HISTORY: Hypertension dyslipidemia carotid disease PAST SURGICAL HISTORY: Cataract procedur CEA MEDICATIONS: 1. Amlodipine 10 mg daily. 2. Atorvastatin 20 mg p.o. daily. 3. Losartan 100 mg p.o. daily. 4. Aspirin 325 mg p.o. daily. 5. timolol eye drops ALLERGIES: PERFUMES, BAND-AID, SULFATE, LISINOPRIL, LIDOCAINE, and CODEINE. FAMILY HISTORY: No family history of stroke or seizures. SOCIAL HISTORY: Quit smoking 05/22/2019 after 55 pack years. rare alcohol no drugs She lives with her daughter and grandchild. She works at [employer] Medications Active Medications: Acetaminophen (Tylenol Tab*) 650 mg PO Q4H PRN PRN Reason: mild to moderate pain Amlodipine Besylate (Norvasc Tab*) 10 mg PO DAILY [facility] Last Admin: 07/12/19 08:29 Dose: 10 mg Aspirin (Aspirin 81 Mg Chew Tab*) 81 mg PO DAILY [facility] Atorvastatin Calcium (Lipitor*) 40 mg PO QAM [facility] Last Admin: 07/12/19 09:05 Dose: Not Given Clopidogrel Bisulfate (Plavix Tab*) 75 mg PO DAILY [facility] Last Admin: 07/12/19 08:30 Dose: 75 mg Enoxaparin Sodium (Lovenox(*)) 40 mg SUBCUT Q24H [facility] Last Admin: 07/11/19 20:28 Dose: 40 mg Losartan Potassium (Cozaar Tab*) 100 mg PO DAILY [facility] Last Admin: 07/12/19 08:30 Dose: 100 mg Home Medications: amLODIPine TAB* [Norvasc 5 mg TAB*] 10 mg PO DAILY 05/08/12 [History Confirmed 07/11/19] Atorvastatin* [Lipitor 20 MG*] 20 mg PO QAM 04/08/13 [History Confirmed 07/11/19 ] Timolol 0.5% OPTH.PATRICK* [Timoptic 0.5% Opth*] 1 drop BOTH EYES DAILY 02/10/17 [ History Confirmed 07/11/19] Ascorbic Acid TAB* [Vitamin C TAB*] 500 - 1,500 mg PO DAILY 05/22/19 [History Confirmed 07/11/19] Losartan TAB* [Cozaar TAB*] 100 mg PO DAILY 05/22/19 [History Confirmed 07/11/19 ] Aspirin TAB* [Aspirin 325 MG TAB*] 325 mg PO DAILY 07/11/19 [History Confirmed 07/11/19] Review of Systems - Measurements Intake and Output: Intake and Output Last 24 Hours 07/10/19 07/11/19 07/12/19 07/13/19 06:59 06:59 06:59 06:59 Intake Total 1000 260 Balance 1000 260 Weight 184 lb 6.4 oz Intake: IV Fluids 1000 Oral 0 260 Other: # Bowel Movements 1 # Voids 4 - Review of Systems Constitutional Symptoms: Negative: Weight Gain, Weight Loss, Fever, Night Sweats Dermatology: Negative: Rash, Skin Lesions HEENT: Negative: Change in Hearing, Vertigo Eyes: Negative: Change in Vision, Double Vision Thyroid: Negative: Thyroid Nodule, Palpitations, Weight Loss, Weight Gain Pulmonary: Negative: Cough, Sputum, Hemoptysis, Respiratory Distress, Shortness of Breath Cardiology: Negative: Chest Pain, Shortness of Breath, Palpitations, Swelling of Ankles, Edema, Syncope, Paroxysmal Nocturnal Dyspnea, Orthopnea Gastroenterology: Negative: Blood in Stools, Haematemesis, Melena Genital - Urinary: Negative: Dysuria, Hematuria Musculoskeletal: Negative: Joint Pain, Joint Stiffness Endocrinology: Positive: Obesity Negative: Diabetes Hematologic/Lymphatic: Negative: Use of Anticoagulant, Use of Antiplatelet Drugs Neurology: Positive: Dizziness, Hx of Stroke\TIA Negative: Change in Speech, Change in Sphincter Function, Hx Seizures Psychiatry: Positive: Guilt Feelings Negative: Unusual Fatigue, Unusual Anxiety, Suicidal Ideation, Hypomania, Eating Disorders, Other Allergic/Immunologic: Negative: Hx HIV, Immunocompromise Review of Systems Statement: All other review of systems negative, unless stated above. Objective Vital Signs: Temp Pulse Resp BP Pulse Ox 97.3 F 42 15 127/57 98 07/12/19 15:15 07/12/19 15:15 07/12/19 15:15 07/12/19 15:15 07/12/19 15:15 Oxygen Devices in Use Now: None Appearance: nad, pleasant Ears/Nose/Mouth/Throat: Clear Oropharnyx, Mucous Membranes Moist Neck: NL Appearance and Movements; NL JVP, Trachea Midline, - - left carotid endaretectomy Respiratory: Symmetrical Chest Expansion and Respiratory Effort, Clear to Auscultation Cardiovascular: NL Sounds; No Murmurs; No JVD, RRR, No Edema Abdominal: NL Sounds; No Tenderness; No Distention Extremities: No Edema Skin: No Rash or Ulcers Neurological: Alert and Oriented x 3 Laboratory Results: 07/11/19 12:50 07/11/19 12:50 INR (Anticoag Therapy) 1.03 (0.82-1.09) 07/11/19 12:50 APTT 35.3 seconds (26.0-38.0) 07/11/19 12:50 Total Bilirubin 0.60 mg/dL (0.2-1.0) 07/11/19 12:50 AST 20 U/L (13-39) 07/11/19 12:50 ALT 16 U/L (7-52) 07/11/19 12:50 Alkaline Phosphatase 81 U/L (34-104) 07/11/19 12:50 Total Protein 7.3 g/dL (6.4-8.9) 07/11/19 12:50 Albumin 4.3 g/dL (3.2-5.2) 07/11/19 12:50 Globulin 3.0 g/dL (2-4) 07/11/19 12:50 Albumin/Globulin Ratio 1.4 (1-3) 07/11/19 12:50 Triglycerides 61 mg/dL 07/12/19 05:40 Cholesterol 167 mg/dL 07/12/19 05:40 LDL Cholesterol 94 mg/dL 07/12/19 05:40 HDL Cholesterol 61.1 mg/dL 07/12/19 05:40 TSH 1.53 mcIU/mL (0.34-5.60) 07/11/19 17:09 07/11/19 12:50 Troponin I 0.01 Diagnostic Imaging: Transthoracic Echocardiogram Study Date: 07/12/2019 - Left ventricle: The cavity size is at the lower limits of normal. Wall thickness is mildly increased. Systolic function is normal. The estimated ejection fraction is 60-65%. Wall motion is normal; there are no regional wall motion abnormalities. - Right ventricle: The cavity size is normal. Systolic function is normal. - Left atrium: The atrium is normal in size. - Atrial septum: Negative bubble study. - Pulmonary arteries: Systolic pressure is within the normal range. - No significant valvular abnormalities noted. Brain MRI Exam Date: 07/11/19 IMPRESSION: Acute to early subacute ischemic infarct involving the right insula extending to the right parietal lobe within the right MCA territory. CTA head/neck 07/11/2019 IMPRESSION: 1. LOSS OF [place]-WHITE DIFFERENTIATION OF THE RIGHT INSULA SUGGESTIVE OF SUBACUTE NONHEMORRHAGIC INFARCT. 2. ATHEROSCLEROSIS 3. APPROXIMATELY 20% SHORT SEGMENT RIGHT INTERNAL CAROTID ARTERY STENOSIS BY NASCET CRITERIA. 4. NO LEFT INTERNAL CAROTID ARTERY STENOSIS BY NASCET CRITERIA. 5. MURAL IRREGULARITY OF THE INTRACRANIAL CIRCULATION SUGGESTIVE OF INTRACRANIAL ATHEROSCLEROSIS EKG Data: 07/11/2019 Sinus bradycardia 47 bpm with 2 ectopic atrial escape beats Assessment/Plan 1. 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 Patient has objective chronotropic incompetence. I am highly suspicious that some of her previous lightheaded spells are bradycardia related but cannot be certain without direct correlation and this was discussed. I think it would be reasonable to proceed with permanent atrial pacing electively as an outpatient once further recovers from CVA and this was recommended. We discussed the goal would be for symptom improvement and possibly prevention of syncope. Atrial pacing in this situation would be unlikely to prolong or save her life. We discussed timolol could be contributing and she is going to hold this and contact Dr. Pierson's office for an alternate medication while deciding if she wants to pursue a pacemaker (she is undecided at this point). I am doubtful that holding timolol alone will be enough to substantially improve her conduction system disease but it is possible and this was also discussed. We also discussed a therapeutic trial of theophylline if she did not want to have a pacemaker. Patient can be discharged from a cardiac standpoint. Will arrange outpatient follow up.
[2019-07-13] MEDS ORDERED: Aspirin 81 mg CHEW TAB* 81 MG TAB.CHEW PO SCH (09:00)
[2019-07-13 09:36] VITALS: BP 109/57
[2019-07-13] MEDS: Losartan TAB* 25 MG PO SCH (09:43)
[2019-07-13] MEDS: Atorvastatin* 40 MG TAB PO SCH (09:44)
[2019-07-13] MEDS: amLODIPine TAB* 5 MG PO SCH (09:45)
[2019-07-13] MEDS: Clopidogrel TAB* 75 MG PO SCH (09:46)
--- NOTE | 2019-07-14 01:17 | DS ---
AMENDED REPORT NOW INCLUDES DESIGNATED COSIGNER - ESIGNED BEFORE ADJUSTMENTS CC: Dr. Flores * DISCHARGE SUMMARY: DATE OF ADMISSION: 07/11/19 DATE OF DISCHARGE: 07/13/19 PROVIDER: Barney Elaine NP ATTENDING PHYSICIAN: Dr. Hernandez.* (DICTATED BY BARNEY ELAINE NP) PRIMARY CARE PHYSICIAN: Dr. Flores. CONSULTING PHYSICIANS: Dr. Larkin and Dr. Eddy. PRIMARY DIAGNOSES: 1. Right insular subacute infarct. 2. Bradycardia. 3. Elevated hemoglobin A1c. SECONDARY DIAGNOSES: 1. Hypertension. 2. Hyperlipidemia. 3. Left carotid stenosis, with recent endarterectomy. 4. Glaucoma. PROCEDURES: None. DIAGNOSTIC STUDIES: 1. Transthoracic echocardiogram showed ejection fraction of 60% to 65% with no regional wall motion abnormality and negative bubble study. 2. MRI of the brain without contrast showed acute to early subacute ischemic infarct involving the right insula extending to the right parietal lobe within the right MCA territory. 3. Chest x-ray showed no active cardiopulmonary disease. PERTINENT LABORATORY DATA: Hemoglobin A1c 6.2. Vitamin B12 973. TSH 1.53. Triglycerides 61, cholesterol 167, LDL cholesterol 94, HDL cholesterol 61.1. HISTORY OF PRESENT ILLNESS: This is a 74-year-old female with a past medical history significant for TIA, hyperlipidemia, hypertension, and tobacco abuse, who presented to the emergency room on 07/11/19 for reports of dysarthria and hemiparesis. She was last known well at 9 o'clock the previous night and woke at 7 in the morning. Her daughter noted that she was dropping pills, could not grasp objects properly, and that she was trying to shut the door with her elbow , but unable to use her hand, though at that time could not remember which one. When she initially arrived, her NIH Stroke Scale was 0 and did not receive any tPA. When she came in, her blood pressures were elevated in the 170s up until 190s systolically; however, it was able to be managed by taking her normal medications including amlodipine and losartan. She was able to pass her swallowing test and did well with physical therapy. However, yesterday, nurses noted that she was breathing down into the 30s. She typically runs bradycardic in the 50s to 60s; however, she was more consistently staying in the mid upper 30s and her telemetry showed that she was going in and out of a junctional rhythm, though was asymptomatic every time. Dr. Eddy was consulted because of the bradycardia. It was thought that perhaps her timolol could be contributing to her bradycardia. I contacted Dr. Alcantara with Ophthalmology and he stated that it would be okay to stop the timolol altogether and to have her follow up with her medical receptionist medical assistant within the next couple of days as there are other options for glaucoma control. Dr. Eddy also suggested that she would benefit from atrial pacing and she was unsure at that time she spoke with him; however today, she had had more time to think about it and felt that this may be a good option for her after she heals up from her endarterectomy and stroke. Today, she continued to be bradycardic, though still symptomatic. Timolol has been discontinued. Dr. Eddy was okay with her being discharged to home with the expectation that she would follow up with him in the office. REVIEW OF SYSTEMS: A 12-point system review was performed, which was negative for any facial asymmetry, stuttering, pronator drift. She was able to dorsi, plantar flex. Otherwise, she was not in any pain. Denied chest pain, palpitations, abdominal pain, nausea, vomiting. PHYSICAL EXAMINATION: Vital Signs: 97.2 Fahrenheit, 42 pulse, 16 respirations , 99% oxygen on room air, 109/57 blood pressure. General: This is a well- developed, obese, older woman, seen sitting up in bed, no acute distress noted. Cardiac: S1, S2 present. Heart rate regular. No murmurs, gallops, or rubs appreciated. Lungs: Sounds clear throughout bilaterally on room air. No accessory muscle use noted. Abdomen is soft, nontender, nondistended with positive bowel sounds x4. Positive pedal pulses. Neurologic: Sensation intact to light touch. Full range of motion. Psych: Alert and oriented x4 and thought content organized. DISCHARGE PLAN: She can be discharged home on a heart healthy diet. Caffeine is okay. Activity is as tolerated, though would avoid anything strenuous over the next week. She is to return to the hospital should she develop worsening chest pain or shortness of breath. 1. Right insular subacute infarct. Originally, the patient was on aspirin 325 mg daily due to her endarterectomy; however, because of failed aspirin therapy and stroke, she is to take 81 mg of aspirin a day along with clopidogrel for the next 21 days at which point after the 21 days, she may switch over to taking just the Plavix. She should follow up with Dr. Flores within the next week. 2. Asymptomatic bradycardia. The patient is frequently going down into a junctional rhythm, though is tolerating it at this point. Dr. Eddy is aware of her situation and suggests atrial pacing; however, wants her to heal up better from the surgery before doing any other invasive procedures. 3. Hypertension. Her goal is to keep her high blood pressure under control as to help prevent re-occurrence of stroke. She is to continue her amlodipine and losartan, which give her adequate blood pressure control when combined. 4. Hyperlipidemia. She is to increase her atorvastatin from 20 to 40 despite the fact that her lipid levels were not bad. It is because of her recent endarterectomy and now CVA. 5. Left carotid stenosis with recent endarterectomy. The patient is to keep her hands off the incision which is healing well, covered in glue, no redness or swelling noted. 6. Glaucoma. Her timolol has been discontinued as I thought that it may be contributing to her ongoing bradycardia. Should follow up with her medical receptionist medical assistant a day or two of discharge to alert them to the fact that she will need a medication change. 7. Elevated hemoglobin A1c. Hemoglobin A1c was 6.2 upon checking. I educated the patient about lifestyle choices and how to plan and structure her meals. Will likely need more enforcement; however, does not require any medications at this time. MEDICATIONS: New medications upon discharge: 1. Aspirin 81 mg p.o. daily. 2. Atorvastatin 40 mg p.o. daily. 3. Clopidogrel 75 mg p.o. daily. Medications to continue upon discharge: 1. Losartan 100 mg p.o. daily. 2. Ascorbic acid 500 to 1500 mg p.o. daily. 3. Amlodipine 10 mg p.o. daily. CONDITION UPON DISCHARGE: Good. DISPOSITION: To home. TIME SPENT: On the patient is about 60 minutes with 30 of that spent face-to- face. BARNEY ELAINE, CANDY STARCH MOLD PRINTER [id number]/[facility] #: [id number] [facility] HOSPITALShakira
== END 2019-07-13 10:44 | disposition home or self-care (01) | DRG 45 ==
LOC: ED 12:02 → MEDTELE 17:44 → OBSVTOIN 18:00
PROVIDERS: ADMIT Internal Medicine; ATTEND Internal Medicine
DX: I63.511 Cerebral infarction due to unspecified occlusion or stenosis of right middle cerebral artery (principal); G81.94 Hemiplegia, unspecified affecting left nondominant side; R41.4 Neurologic neglect syndrome; R47.1 Dysarthria and anarthria; R29.810 Facial weakness; R40.2412 Glasgow coma scale score 13-15, at arrival to emergency department; I10 Essential (primary) hypertension; R29.700 NIHSS score 0; M47.819 Spondylosis without myelopathy or radiculopathy, site unspecified; M19.042 Primary osteoarthritis, left hand; M19.041 Primary osteoarthritis, right hand; H40.9 Unspecified glaucoma; I65.21 Occlusion and stenosis of right carotid artery; E78.5 Hyperlipidemia, unspecified; R20.2 Paresthesia of skin; E66.9 Obesity, unspecified; R00.1 Bradycardia, unspecified; E74.39 Other disorders of intestinal carbohydrate absorption; Z68.32 Body mass index [BMI] 32.0-32.9, adult; Z86.73 Personal history of transient ischemic attack (TIA), and cerebral infarction without residual deficits; Z88.4 Allergy status to anesthetic agent; Z88.5 Allergy status to narcotic agent; Z88.2 Allergy status to sulfonamides; Z88.8 Allergy status to other drugs, medicaments and biological substances; Z87.891 Personal history of nicotine dependence; Z79.899 Other long term (current) drug therapy
CPT/HCPCS: 36415; 70496; 70498; 70551; 71045; 80053; 80061; 81003; 81015; 82607; 83036; 83605; 84443; 84484; 85025; 85610; 85730; 87086; 93005; 93306; 99283; A9270-GY; J1650; Q9967

== ENCOUNTER 2019-08-28 15:51 | Inpatient (IN) | payer BC ==
--- NOTE | 2019-08-28 16:46 | ED ---
Palpitations / Dysrhythmia - HPI Summary HPI Summary: This patient is a 74 y/o female presenting to [facility] c/o an episode of elevated heart rate today. Patient notes that at around 11:[address] Eddy's office called her to let her know that her heart rate had increased to the 140s bpm and had a pause for about 5-6 seconds. Patient reports at around this time she had an episode of lightheadedness that resolved on its own after 3-4 seconds. Patient states she had not done anything stressful at that time. Patient denies any other associated complaints or symptoms. Currently patient denies any symptoms. Denies fever, chest pain, shortness of headache. Patient notes Dr. Eddy, her hoop maker, is out of town and spoke to Dr. Garcia who is diamond polisher and wanted patient to come to the ED. Pt states they were talking about placing a pacemaker and was told Dr. Sarmiento does this and is aware of her coming to the ED. Dr. Eddy placed her electronic monitor. PMHx includes stroke. Home Medications Medication Instructions Recorded Confirmed Type amLODIPine TAB* [Norvasc 5 mg TAB*] 10 mg PO DAILY 05/08/12 08/28/19 History Ascorbic Acid TAB* [Vitamin C 500 - 1,500 mg PO DAILY 05/22/19 08/28/19 History TAB*] Losartan TAB* [Cozaar TAB*] 100 mg PO DAILY 05/22/19 08/28/19 History Aspirin 81 mg CHEW TAB* 81 mg PO DAILY #30 tab.chew 07/13/19 08/28/19 Rx Atorvastatin* [Lipitor 40 MG*] 40 mg PO QAM #30 tab 07/13/19 08/28/19 Rx Clopidogrel TAB* [Plavix TAB*] 75 mg PO DAILY #30 tab 07/13/19 08/28/19 Rx - History of Current Complaint Chief Complaint: EDDysrhythmPalp Time Seen by Provider: 08/28/19 16:25 Hx Obtained From: Patient Onset/Duration: Sudden Onset, Resolved Timing: Intermittent Episodes Lasting: - only one episode that lasted 3-4 seconds Severity Initially: Moderate Severity Currently: None Character: Fast Aggravating: Nothing Alleviating: Nothing Associated Signs & Symptoms: Lightheadedness - Allergy/Home Medications Allergies/Adverse Reactions: Allergies Allergy/AdvReac Type Severity Reaction Status Date / Time codeine Allergy Nausea Verified 09/26/18 15:10 lidocaine Allergy See Comment Verified 09/26/18 15:10 lisinopril Allergy Coughing Verified 09/26/18 15:10 Sulfa (Sulfonamide Allergy Rash Verified 09/26/18 15:10 Antibiotics) BANDAID/ADHESIVE TAPE Allergy SEVERE Uncoded 09/26/18 15:10 ITCHY RASH PERFUMES/HEAVY Allergy CHOKY Uncoded 09/26/18 15:10 SMELLS/FRAGRENCE FEELING, COUGH Home Medications: Home Medications amLODIPine TAB* [Norvasc 5 mg TAB*] 10 mg PO DAILY 05/08/12 [History Confirmed 08/28/19] Losartan TAB* [Cozaar TAB*] 100 mg PO DAILY 05/22/19 [History Confirmed 08/28/19 ] Aspirin 81 mg CHEW TAB* 81 mg PO DAILY #30 tab.chew 07/13/19 [Rx Confirmed 08/27] Apixaban* [Eliquis*] 5 mg PO BID 08/28/19 [History Confirmed 08/28/19] Atorvastatin* [Lipitor 40 MG*] 80 mg PO QAM 08/28/19 [History Confirmed 08/28/19 ] Latanoprost 0.005%* [Xalatan 0.005%*] 1 drop BOTH EYES QPM 08/28/19 [History Confirmed 08/28/19] PMH/Surg Hx/FS Hx/Imm Hx Endocrine/Hematology History: Denies: Hx Diabetes, Hx Thyroid Disease Cardiovascular History: Reports: Hx Hypercholesterolemia, Hx Hypertension, Other Cardiovascular Problems/Disorders - CHOLESTEROL CONTROL WITH MEDS Denies: Hx Pacemaker/ICD Respiratory History: Reports: Other Respiratory Problems/Disorders - OCCASIONAL SINUS PROBLEMS, MAY BE RELATED TO SMOKING, TRYING TO QUIT Denies: Hx Asthma, Hx Chronic Obstructive Pulmonary Disease (COPD) GI History: Denies: Hx Ulcer History: Denies: Hx Dialysis Musculoskeletal History: Reports: Hx Arthritis - SPINE, BILATERAL HANDS, Hx Tendonitis - RIGHT SHOULDER-NO PROBLEMS NOW Sensory History: Reports: Hx Cataracts - BILATERAL, Hx Contacts or Glasses - reading glasses, Hx Glaucoma Denies: Hx Hearing Aid Opthamlomology History: Reports: Hx Cataracts - BILATERAL, Hx Contacts or Glasses - reading glasses, Hx Glaucoma Neurological History: Reports: Hx CVA - in 2008, according to Pt, Hx Transient Ischemic Attacks (TIA) Denies: Hx Dementia, Hx Seizures Psychiatric History: Denies: Hx Panic Disorder - Surgical History Surgical History: Yes Surgery Procedure, Year, and Place: 07/13/2011 ABCESS REMOVED FROM BACK, [facility]. 1971 GROWN IN UMBILICUS AREA, [facility]. LEFT ENCARDECTOMY. GROWTH REMOVED FROM UTERUS. BILATERAL CATARACTS Hx Anesthesia Reactions: No Infectious Disease History: No Infectious Disease History: Denies: Hx Clostridium Difficile, Hx Hepatitis, Hx Human Immunodeficiency Virus (HIV), Hx of Known/Suspected MRSA, Hx Shingles, Hx Tuberculosis, Hx Known/ Suspected VRE, Hx Known/Suspected VRSA, History Other Infectious Disease, Traveled Outside the [place] in Last 30 Days - Family History Known Family History: Positive: Hypertension, Blood Disorder - blood clots, Other - CA - Social History Alcohol Use: Rare Substance Use Type: Reports: None Smoking Status (MU): Heavy Every Day Tobacco Smoker Type: Cigarettes Amount Used/How Often: < 1PPD Have You Smoked in the Last Year: Yes Review of Systems Negative: Fever Negative: Chest Pain Negative: Shortness Of Breath Neurological/Mental Status: Other - POSITIVE: lightheadedness Negative: Headache All Other Systems Reviewed And Are Negative: Yes Physical Exam - Summary Physical Exam Summary: VITAL SIGNS: Reviewed. GENERAL: Patient is a well-developed and nourished female who is lying comfortable in the stretcher. Patient is not in any acute respiratory distress. HEAD AND FACE: No signs of trauma. No ecchymosis, hematomas or skull depressions. No sinus tenderness. EYES: PERRLA, EOMI x 2, No injected conjunctiva, no nystagmus. EARS: Hearing grossly intact. Ear canals and tympanic membranes are within normal limits. MOUTH: Oropharynx within normal limits. NECK: Supple, trachea is midline, no adenopathy, no JVD, no carotid bruit, no c- spine tenderness, neck with full ROM. CHEST: Symmetric, no tenderness at palpation LUNGS: Clear to auscultation bilaterally. No wheezing or crackles. CVS: Regular rate and rhythm, S1 and S2 present, no murmurs or gallops appreciated. ABDOMEN: Soft, non-tender. No signs of distention. No rebound, no guarding, and no masses palpated. Bowel sounds are normal. EXTREMITIES: FROM in all major joints, no edema, no cyanosis or clubbing. NEURO: Alert and oriented x 3. No acute neurological deficits. Speech is normal and follows commands. SKIN: Dry and warm Triage Information Reviewed: Yes Vital Signs On Initial Exam: Initial Vitals Temp Pulse Resp BP Pulse Ox 97.6 F 65 18 150/74 98 08/28/19 15:59 08/28/19 15:59 08/28/19 15:59 08/28/19 15:59 08/28/19 15:59 Vital Signs Reviewed: Yes Procedures - Sedation Patient Received Moderate/Deep Sedation with Procedure: No Diagnostics - Vital Signs Vital Signs Temp Pulse Resp BP Pulse Ox 08/28/19 15:59 97.6 F 65 18 150/74 98 - Laboratory Result Diagrams: 08/28/19 16:57 08/29/19 06:53 Lab Statement: Any lab studies that have been ordered have been reviewed, and results considered in the medical decision making process. - Radiology Chest XR Radiology Interpretation Completed By: ED Physician Summary of Radiographic Findings: No acute process. - EKG 1645 Cardiac Rate: NL - at 65 bpm EKG Rhythm: Sinus Rhythm Summary of EKG Findings: EKG at 1645 shows normal sinus rhythm at a rate of [address] elevations. This EKG was interpreted and reviewed by ED physician. Course/Dx - Course Assessment/Plan: This patient is a 74 y/o female presenting to [facility] c/o an episode of elevated heart rate today. Patient notes that at around 11:[address] Eddy's office called her to let her know that her heart rate had increased to the 140s bpm and had a pause for about 5-6 seconds. Patient reports at around this time she had an episode of lightheadedness that resolved on its own after 3-4 seconds. Patient states she had not done anything stressful at that time. Patient denies any other associated complaints or symptoms. Currently patient denies any symptoms. Denies fever, chest pain, shortness of headache. Patient notes Dr. Eddy, her hoop maker, is out of town and spoke to Dr. Garcia who is diamond polisher and wanted patient to come to the ED. Pt states they were talking about placing a pacemaker and was told Dr. Sarmiento does this and is aware of her coming to the ED. Dr. Eddy placed her electronic monitor. PMHx includes stroke. In the ED course the patient was placed in a monitoring specialist, IV access was obtained, IV fluids were started. Past medical records reviewed. Blood test w/o a significant abnormality except for INR 1.3, BUN 30, creatinine 1.21, glucose 104, calcium 10.5, the BNP is 233. The urinalysis was contaminated. Dr. Sarmiento at bedside. She noticed that the patient had an episode in her event monitor. She believes that the patient is having sick sinus syndrome and she needs a pacemaker. She recommends admission to the hospitalist. I discussed my physical exam and test results with Dr. Singh from the hospitalist services and she agrees to admit the patient to her services. The patient is hemodynamically stable, alert and oriented x 3. - Diagnoses Provider Diagnoses: Sick sinus syndrome - Physician Notifications Discussed Care Of Patient With: Janneth Singh - hospitalist Time Discussed With Above Provider: 17:59 Instructed by Provider To: Admit As Inpatient - Critical Care Time Critical Care Statement: Critical care time is provided exclusive of any time spent performing procedures. Discharge ED - Sign-Out/Discharge Documenting (check all that apply): Patient Departure - Admit to [facility] - Discharge Plan Condition: Stable Disposition: ADMITTED TO [facility] - Billing Disposition and Condition Condition: STABLE Disposition: Admitted to [facility] - Attestation Statements Document Initiated by Kishan: Yes Documenting Scribe: Karissa Gomes Provider For Whom Kishan is Documenting (Include Credential): Devan Fatima MD Scribe Attestation: Karissa Duarte, scribed for Devan Fatima MD on 08/30/19 at 0712. Scribe Documentation Reviewed: Yes Provider Attestation: The documentation as recorded by the Karissa davis accurately reflects the service I personally performed and the decisions made by me, Devan Fatima MD Status of Scribe Document: Viewed
[2019-08-28 17:08] LABS: ABS Eosinophils 0.1 10^3/ul (0-0.6); ABS Lymphocytes 1.6 10^3/ul (1.0-4.8); ABS Monocytes 0.7 10^3/ul (0-0.8); ABS Neutrophils 6.4 10^3/ul (1.5-7.7); Eosinophil % 1.6 %; Hematocrit 46 % (35-47); Hemoglobin 15.6 g/dL (12.0-16.0); Lymphocyte % 17.8 %; Mean Corpuscular HGB Conc 34 g/dL (31-36); Mean Corpuscular Hemoglobin 31 pg (27-31); Mean Corpuscular Volume 90 fL (80-97); Mean Platelet Volume 7.4 fL (7.4-10.4); Nucleated Red Blood Cells % 0.1; Platelet Count 294 10^3/uL (150-450); Red Blood Count 5.07 10^6 /uL (3.70-4.87); Red Cell Distribution Width 14 % (10-15)
[2019-08-28 17:12] LABS: Urine Appearance Cloudy; Urine Bilirubin Negative (Negative); Urine Blood Negative (Negative); Urine Color Yellow; Urine Glucose Negative (Negative); Urine Ketones Trace (Negative); Urine Nitrite Negative (Negative); Urine Protein Negative (Negative); Urine Specific Gravity 1.019 (1.010-1.030); Urine Urobilinogen Negative (Negative)
[2019-08-28 17:14] LABS: Urine Bacteria Absent (Absent); Urine Red Blood Cell Absent (Absent); Urine Squamous Epithelial Cell Present (Absent); Urine White Blood Cell 1+(6-10/hpf) (Absent)
[2019-08-28 17:20] LABS: Activated Partial Thrombo Time 46.4 seconds (26.0-38.0); INR 1.3 (0.82-1.09)
[2019-08-28 17:31] LABS: Troponin I 0.01 ng/mL (<0.03)
[2019-08-28 17:33] LABS: Albumin 4.8 g/dL (3.2-5.2); Albumin/Globulin Ratio 1.5 (1-3); BUN/Creatinine Ratio 24.8 (8-20); CKMB ng/mL 3.3 ng/mL (0.6-6.3); Calcium 10.5 mg/dL (8.6-10.3); EGFR African American 52.3 (>60); EGFR Non-African American 43.3 (>60); Globulin 3.3 g/dL (2-4); Magnesium 2.1 mg/dL (1.9-2.7); Total Bilirubin 0.5 mg/dL (0.2-1.0); Total Protein 8.1 g/dL (6.4-8.9)
--- NOTE | 2019-08-28 17:46 | CONSULT ---
Subjective Date of Service: 08/28/19 - CC: dizzy, hx stroke Interval History: 74 yo female followed by Dr Eddy with hx carotid disease, s/p CEA June, had a stroke in early July. EM revealed PAF and today EM showed Afib, RVR alternating with long pauses, 5-6 seconds. Per patient no hx syncope, but has episodic periods she will feel woozy. Today's episode occured sitting. Currently the patient is free of feeling dizzy. PMHX Carotid disease s/p L CEA Jun 17, 2019 (Strong) Hyperlipidemia CVA 07/11/2019. PAF, recently started on Eliquis SSS HTN Glaucoma Obese Mitral insufficiency Pulmonary dz: stopped smoking 2019 amLODIPine TAB* [Norvasc 5 mg TAB*] 10 mg PO DAILY 05/08/12 [History Confirmed 08/28/19] Ascorbic Acid TAB* [Vitamin C TAB*] 500 - 1,500 mg PO DAILY 05/22/19 [History Confirmed 08/28/19] Losartan TAB* [Cozaar TAB*] 100 mg PO DAILY 05/22/19 [History Confirmed 08/28/19 ] Aspirin 81 mg CHEW TAB* 81 mg PO DAILY #30 tab.chew 07/13/19 [Rx Confirmed 08/27] Atorvastatin* [Lipitor 40 MG*] 40 mg PO QAM #30 tab 07/13/19 [Rx Confirmed 08/27] Eliquis 5 mg BID Eye gtts, type unknown, previously on Timalol which was stopped/exchanged for a new gtt. Allergies: SXT, adhesive per out patient chart. SHx: Worked at [employer] (Closed) until recently, [employer]. Stopped smoking May 2019, no recent EtOH. FHx: Mother: Afib, DVT leg age 60 Sister: Pacer Father: unknown ROS: Neg for CP Pos for orthopnea, sleeps in chair, awakes at times. Told she might have QUE. Neg for fever, chills, sweats, cough, dysruria. Neg for changes in bowel or bladder habits. Feels generally worse since CEA and CVA than pre, but vague on specifics. Neg for claudication. All other ROS (14 point) negativr. Temp Pulse Resp BP Pulse Ox 97.6 F 75 19 115/42 98 08/28/19 15:59 08/28/19 17:36 08/28/19 17:00 08/28/19 17:36 08/28/19 16:44 General: overweight in NAD Psych: Pleasant, cooperative, states she feels anxious Neuro: AAO to person and place, speech articulate no gross motor or sesory defcits. HEENT: PEERLA, mask on. L CEA Scar well healed. R soft bruit. Resp: Clear, no wheezing, no rales. Cor: S1S2 reg, no murmurs. Abdomen: non disteneded, overweight, soft Ext: No edema, warm, strong radial pulses. Lab Results 08/28/19 08/28/19 08/28/19 Range/Units 16:57 16:57 16:57 WBC 9.0 (3.5-10.8) 10^3/uL RBC 5.07 H (3.70-4.87) 10^6 /uL Hgb 15.6 (12.0-16.0) g/dL Hct 46 (35-47) % MCV 90 (80-97) fL MCH 31 (27-31) pg MCHC 34 (31-36) g/dL RDW 14 (10-15) % Plt Count 294 (150-450) 10^3/uL MPV 7.4 (7.4-10.4) fL Neut % (Auto) 71.8 % Lymph % (Auto) 17.8 % [place] % (Auto) 8.3 % Eos % (Auto) 1.6 % Baso % (Auto) 0.5 % Absolute Neuts (auto) 6.4 (1.5-7.7) 10^3/ul Absolute Lymphs (auto) 1.6 (1.0-4.8) 10^3/ul Absolute Monos (auto) 0.7 (0-0.8) 10^3/ul Absolute Eos (auto) 0.1 (0-0.6) 10^3/ul Absolute Basos (auto) 0.0 (0-0.2) 10^3/ul Absolute Nucleated RBC 0.0 10^3/ul Nucleated RBC % 0.1 INR (Anticoag Therapy) 1.30 H (0.82-1.09) APTT 46.4 H (26.0-38.0) seconds Sodium (135-145) mmol/L Potassium Chloride (101-111) mmol/L Carbon Dioxide (22-32) mmol/L Anion Gap BUN (6-24) mg/dL Creatinine (0.51-0.95) mg/dL Est GFR ( Amer) (>60) Est GFR (Non-Af Amer) (>60) BUN/Creatinine Ratio (8-20) Glucose (70-100) mg/dL Lactic Acid (0.5-2.0) mmol/L Calcium (8.6-10.3) mg/dL Magnesium (1.9-2.7) mg/dL Total Bilirubin (0.2-1.0) mg/dL AST ALT (7-52) U/L Alkaline Phosphatase (34-104) U/L Total Creatine Kinase (10-223) U/L CK-MB (CK-2) (0.6-6.3) ng/mL Troponin I (<0.03) ng/mL B-Natriuretic Peptide (<=100) pg/mL Total Protein (6.4-8.9) g/dL Albumin (3.2-5.2) g/dL Globulin (2-4) g/dL Albumin/Globulin Ratio (1-3) TSH Urine Color Yellow Urine Appearance Cloudy Urine pH 5.0 (5-9) Ur Specific [place] 1.019 (1.010-1.030) Urine Protein Negative (Negative) Urine Ketones Trace A (Negative) Urine Blood Negative (Negative) Urine Nitrate Negative (Negative) Urine Bilirubin Negative (Negative) Urine Urobilinogen Negative (Negative) Ur Leukocyte Esterase 1+ A (Negative) Urine WBC (Auto) 1+(6-10/hpf) A (Absent) Urine RBC (Auto) Absent (Absent) Ur Squamous Epith Cells Present A (Absent) Urine Bacteria Absent (Absent) Hyaline Casts Present A (Absent) Urine Glucose Negative (Negative) Urine Ascorbic Acid * A (Negative) 08/28/19 08/28/19 08/28/19 Range/Units 16:57 16:57 16:57 WBC (3.5-10.8) 10^3/uL RBC (3.70-4.87) 10^6 /uL Hgb (12.0-16.0) g/dL Hct (35-47) % MCV (80-97) fL MCH (27-31) pg MCHC (31-36) g/dL RDW (10-15) % Plt Count (150-450) 10^3/uL MPV (7.4-10.4) fL Neut % (Auto) % Lymph % (Auto) % [place] % (Auto) % Eos % (Auto) % Baso % (Auto) % Absolute Neuts (auto) (1.5-7.7) 10^3/ul Absolute Lymphs (auto) (1.0-4.8) 10^3/ul Absolute Monos (auto) (0-0.8) 10^3/ul Absolute Eos (auto) (0-0.6) 10^3/ul Absolute Basos (auto) (0-0.2) 10^3/ul Absolute Nucleated RBC 10^3/ul Nucleated RBC % INR (Anticoag Therapy) (0.82-1.09) APTT (26.0-38.0) seconds Sodium 139 (135-145) mmol/L Potassium Pending Chloride 103 (101-111) mmol/L Carbon Dioxide 25 (22-32) mmol/L Anion Gap Pending BUN 30 H (6-24) mg/dL Creatinine 1.21 H (0.51-0.95) mg/dL Est GFR ( Amer) 52.3 (>60) Est GFR (Non-Af Amer) 43.3 (>60) BUN/Creatinine Ratio 24.8 H (8-20) Glucose 104 H (70-100) mg/dL Lactic Acid 1.4 (0.5-2.0) mmol/L Calcium 10.5 H (8.6-10.3) mg/dL Magnesium 2.1 (1.9-2.7) mg/dL Total Bilirubin 0.50 (0.2-1.0) mg/dL AST Pending ALT 21 (7-52) U/L Alkaline Phosphatase 93 (34-104) U/L Total Creatine Kinase 183 (10-223) U/L CK-MB (CK-2) 3.3 (0.6-6.3) ng/mL Troponin I 0.01 (<0.03) ng/mL B-Natriuretic Peptide 233 H (<=100) pg/mL Total Protein 8.1 (6.4-8.9) g/dL Albumin 4.8 (3.2-5.2) g/dL Globulin 3.3 (2-4) g/dL Albumin/Globulin Ratio 1.5 (1-3) TSH Pending Urine Color Urine Appearance Urine pH (5-9) Ur Specific [place] (1.010-1.030) Urine Protein (Negative) Urine Ketones (Negative) Urine Blood (Negative) Urine Nitrate (Negative) Urine Bilirubin (Negative) Urine Urobilinogen (Negative) Ur Leukocyte Esterase (Negative) Urine WBC (Auto) (Absent) Urine RBC (Auto) (Absent) Ur Squamous Epith Cells (Absent) Urine Bacteria (Absent) Hyaline Casts (Absent) Urine Glucose (Negative) Urine Ascorbic Acid (Negative) Echo 07/12/2019: EF 60-65%, LVH, Bubble NEG, from May 2019 mild to mod EM strips: Afib RVR with intermittent sinus pauses, up to 6 seconds (today 11: 21 AM) ECG ED: NSR iwth sinus arrhythmia 65 bpm Medications Home Medications: amLODIPine TAB* [Norvasc 5 mg TAB*] 10 mg PO DAILY 05/08/12 [History Confirmed 08/28/19] Ascorbic Acid TAB* [Vitamin C TAB*] 500 - 1,500 mg PO DAILY 05/22/19 [History Confirmed 08/28/19] Losartan TAB* [Cozaar TAB*] 100 mg PO DAILY 05/22/19 [History Confirmed 08/28/19 ] Aspirin 81 mg CHEW TAB* 81 mg PO DAILY #30 tab.chew 07/13/19 [Rx Confirmed 08/27] Atorvastatin* [Lipitor 40 MG*] 40 mg PO QAM #30 tab 07/13/19 [Rx Confirmed 08/27] Clopidogrel TAB* [Plavix TAB*] 75 mg PO DAILY #30 tab 07/13/19 [Rx Confirmed ] Review of Systems - Measurements Intake and Output: Intake and Output Last 24 Hours 08/26/19 08/27/19 08/28/19 08/29/19 04:59 04:59 04:59 04:59 Weight 185 lb - Review of Systems Review of Systems Statement: All other review of systems negative, unless stated above. Objective Vital Signs: Temp Pulse Resp BP Pulse Ox 97.6 F 68 19 135/66 98 08/28/19 15:59 08/28/19 16:44 08/28/19 17:00 08/28/19 16:44 08/28/19 16:44 Laboratory Results: 08/28/19 16:57 INR (Anticoag Therapy) 1.30 (0.82-1.09) H 08/28/19 16:57 APTT 46.4 seconds (26.0-38.0) H 08/28/19 16:57 Assessment/Plan 74 yo female with SSS, tachybrady, PAF, PVD s/p L CEA with long sinus pauses off any rate lowering agents. Admit, observe on tele. Tachybrady: SSS- Pacer implant Monday AM when eliquis off longer (took this AM) PAF- Lovenox or UF Heparin tonight through tomorrow night, stop for pacer implant in AM Monday PVD: Continue Statin Continue Amlodipine Continue ASA. Indications, risks and benefits of pacer discussed in depth, details of the procedure. Pt is right handed.
[2019-08-28 17:56] LABS: TSH (Thyroid Stimulating Horm) 2.64 mcIU/mL (0.34-5.60)
[2019-08-28 18:49] LABS: Potassium 4.5 mmol/L (3.5-5.0)
[2019-08-28] MEDS ORDERED: NS 0.9% 500 ML* 500 ML IV SCH (21:00)
--- NOTE | 2019-08-28 21:58 | HP ---
CC: Dr. Flores; Dr. Salazar Eddy* HISTORY AND PHYSICAL: DATE OF ADMISSION: 08/28/19 PRIMARY CARE PROVIDER: Dr. Flores. HOSPICE CLINICAL MARKETER: Dr. Salazar Eddy. CHIEF COMPLAINT: Lightheadedness with findings of sick sinus syndrome with 5- second pause on [employer]OT monitor. HISTORY OF PRESENT ILLNESS: Ms. Conrad is a 74-year-old female who suffered a stroke in July 2019. She followed up with Dr. Salazar Eddy in the cardiology office on 07/23/19. She at that time was prescribed a [employer] MCOT monitor. Today, the patient was contacted by the cardiology office stating that she had rapid heart rate followed by a 5-second pause and was told to present to the emergency room for evaluation. The patient does state that at the time this rhythm change was noted on her monitor, she did feel lightheaded. She states that she was sitting in a chair when this occurred. She grabbed hold of the arms of the chair and squeezed and then notes that the lightheadedness went away. The patient otherwise felt no palpitation. She has had no chest pain. She has no other complaints at this time. PAST MEDICAL HISTORY: 1. CVA, July 2019. 2. Paroxysmal atrial fibrillation with sick sinus syndrome. 3. Hyperlipidemia. 4. Hypertension. 5. Obesity. PAST SURGICAL HISTORY: 1. Left carotid endarterectomy. 2. Bilateral cataract extraction. MEDICATIONS: 1. Losartan 100 mg p.o. daily. 2. Amlodipine 10 mg p.o. daily. 3. Eliquis 5 mg p.o. b.i.d. 4. Latanoprost 1 drop to both eyes q.h.s. 5. Aspirin 81 mg p.o. daily. 6. Lipitor 80 mg p.o. daily. ALLERGIES: CODEINE, LIDOCAINE, LISINOPRIL, SULFA, ADHESIVE TAPE. FAMILY HISTORY: Mom at the age of 60. She had AFib and DVT. Dad has . His medical history is unknown. SOCIAL HISTORY: The patient is a former smoker of 1 pack per day. She quit in May 2019. She does not drink alcohol. 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 She is . Her daughter, grandson, and great grandchild live with her currently. REVIEW OF SYSTEMS: A complete 11-system review of systems was obtained. Pertinent positives and negatives are as per HPI. In addition, the patient does note increased stress at home regarding her family situation; otherwise, the review of systems is negative. PHYSICAL EXAMINATION GENERAL: The patient is a well-developed, elderly female, seen sitting up in the stretcher, reading and in no acute distress. VITAL SIGNS: Blood pressure 169/61, pulse 55, respirations 14, temp 97.6, O2 sat 96% on room air. HEENT: Pupils are equal. Extraocular muscles are intact. Oropharynx is clear. Oral mucosa is moist. The patient is edentulous. NECK: There is no submandibular, cervical, or supraclavicular adenopathy. There is a thickened scar from her left carotid endarterectomy. PULMONARY: I do question few crackles at the left base, otherwise lungs are clear. CARDIAC: Normal S1 and S2. Heart rate is bradycardic, but regular. There is no murmur. There is no lower extremity edema. ABDOMEN: Soft, nontender, and nondistended. MUSCULOSKELETAL: There is no cyanosis or clubbing of the digits. There is full active range of motion of all 4 extremities. NEUROLOGIC: Cranial nerves II through XII are grossly intact. Sensation is intact to light touch throughout. Strength is 5/5 and symmetric both in upper and lower extremities bilaterally. PSYCH: The patient is alert. She is oriented x3. Affect appears appropriate. SKIN: Warm and dry. There are no rashes. DIAGNOSTIC STUDIES/LAB DATA: WBC 9.0, hemoglobin 15.6, hematocrit 46, and platelets 294. INR 1.3. Sodium 139, potassium 4.5, chloride 103, CO2 25, BUN 30, creatinine 1.21, glucose 104, lactic acid 1.4, calcium 10.5, magnesium 2.1. Bilirubin 0.5, AST 22, ALT 21, alk phos 93. CPK 183, CK-MB 3.3. Troponin 0.01. BNP 233. Albumin 4.8. TSH 2.64. Urinalysis reveals cloudy urine with evidence of ketones, white blood cells, absent bacteria, and present hyaline casts. EKG reveals with sinus arrhythmia and no acute ST-T wave abnormalities. Chest x-ray to my interpretation, I question possible small pleural effusion on the left. Lungs generally appear clear without evidence of infiltrate or pulmonary edema. ASSESSMENT AND PLAN: Ms. 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 1. Paroxysmal atrial fibrillation with sick sinus syndrome and prolonged pauses. At this point, the patient will be admitted for plans to have a pacemaker inserted on 08/30/19. The patient has been on Eliquis. This will need to be held. I discussed with Dr. Sarmiento starting Lovenox this evening as the patient is high risk for stroke. She will receive 85 mg subcutaneous q.12 hours and this will need to be held the evening prior to her pacemaker insertion. She will be monitored on telemetry. The patient is not on any AV albert blockers nor any be utilized at this time given her prolonged pauses. 2. Hypertension. Blood pressure is under good control. Continue losartan and amlodipine. Likely once her pacemaker is inserted, she will need beta-antonieta initiation and perhaps her amlodipine could be replaced with this. 3. Hyperlipidemia. Continue Lipitor 80 mg daily. 4. Recent cerebrovascular accident in July 2019. Continue aspirin 81 mg p.o. daily, Lovenox while off Eliquis, and blood pressure control. 5. DVT prophylaxis. According to the Adult Thrombosis Prophylaxis Risk Factor Assessment Guide, the patient has a total risk factor score of 4, making her high risk. She will be on full-dose Lovenox and this will act as a DVT prophylaxis. 6. Code status is full. TIME SPENT: Sixty-five minutes was spent admitting this patient. [id number]/[facility] #: [id number] ARYAN
[2019-08-28] MEDS: Enoxaparin(*) 100 MG/ML SYR SUBCUT SCH (22:14)
[2019-08-29 07:51] LABS: BUN/Creatinine Ratio 25.3 (8-20); Calcium 8.7 mg/dL (8.6-10.3); EGFR African American 72.7 (>60); EGFR Non-African American 60.1 (>60); Potassium 4.2 mmol/L (3.5-5.0)
[2019-08-29] MEDS: Aspirin 81 mg CHEW TAB* 81 MG TAB.CHEW PO SCH (08:03)
[2019-08-29] MEDS: Enoxaparin(*) 100 MG/ML SYR SUBCUT SCH (08:04)
[2019-08-29] MEDS: Atorvastatin* 80 MG TAB PO SCH (08:04)
[2019-08-29] MEDS: amLODIPine TAB* 5 MG PO SCH ×2 (09:03→11:01)
[2019-08-29] MEDS: Losartan TAB* 25 MG PO SCH ×2 (09:03→11:01)
[2019-08-29] MEDS ORDERED: ceFAZolin 2 GM PREMIX in ORs 2 GM/50 ML BAG IVPB ONE (10:59)
--- NOTE | 2019-08-29 10:59 | PN ---
Subjective Date of Service: 08/29/19 - CC: dizzy spells, SSS Interval History: 74 [address] female followed by Dr Eddy with hx carotid disease, s/p CEA June, had a stroke in early July. EM revealed PAF and today EM showed Afib, RVR alternating with long pauses, 5-6 seconds. Per patient no hx syncope, but has episodic periods she will feel woozy. Sinus pauses seen on out pt monitor. Pt denies any dizzy spells since admission. Medications Active Medications: Amlodipine Besylate (Norvasc Tab*) 10 mg PO DAILY [facility] Aspirin (Aspirin 81 Mg Chew Tab*) 81 mg PO DAILY [facility] Last Admin: 08/29/19 08:03 Dose: 81 mg Atorvastatin Calcium (Lipitor*) 80 mg PO QAM [facility] Last Admin: 08/29/19 08:04 Dose: 80 mg Enoxaparin Sodium (Lovenox(*)) 85 mg SUBCUT ONCE ONE Stop: 08/29/19 19:01 Latanoprost (Xalatan 0.005%*) 1 drop BOTH EYES QPM [facility] Losartan Potassium (Cozaar Tab*) 100 mg PO DAILY [facility] Objective Vital Signs: Temp Pulse Resp BP Pulse Ox 97.5 F 56 16 139/79 98 08/29/19 07:15 08/29/19 07:15 08/29/19 07:15 08/29/19 07:15 08/29/19 07:15 Oxygen Devices in Use Now: None Appearance: Overweight, NAD Eyes: No Scleral Icterus, PERRLA Ears/Nose/Mouth/Throat: Clear Oropharnyx, Mucous Membranes Moist Neck: NL Appearance and Movements; NL JVP, Trachea Midline Respiratory: Symmetrical Chest Expansion and Respiratory Effort, Clear to Auscultation Cardiovascular: RRR - bradycardia Abdominal: NL Sounds; No Tenderness; No Distention Extremities: No Edema, No Clubbing, Cyanosis Skin: No Rash or Ulcers Neurological: Alert and Oriented x 3, NL Muscle Strength and Tone Lines/Tubes/Other Access: Clean, Dry and Intact Peripheral IV Laboratory Results: 08/28/19 16:57 08/29/19 06:53 INR (Anticoag Therapy) 1.30 (0.82-1.09) H 08/28/19 16:57 APTT 46.4 seconds (26.0-38.0) H 08/28/19 16:57 Total Bilirubin 0.50 mg/dL (0.2-1.0) 08/28/19 16:57 AST 22 U/L (13-39) 08/28/19 16:57 ALT 21 U/L (7-52) 08/28/19 16:57 Alkaline Phosphatase 93 U/L (34-104) 08/28/19 16:57 CK-MB (CK-2) 3.3 ng/mL (0.6-6.3) 08/28/19 16:57 B-Natriuretic Peptide 233 pg/mL (<=100) H 08/28/19 16:57 Total Protein 8.1 g/dL (6.4-8.9) 08/28/19 16:57 Albumin 4.8 g/dL (3.2-5.2) 08/28/19 16:57 Globulin 3.3 g/dL (2-4) 08/28/19 16:57 Albumin/Globulin Ratio 1.5 (1-3) 08/28/19 16:57 TSH 2.64 mcIU/mL (0.34-5.60) 08/28/19 16:57 08/28/19 16:57 Troponin I 0.01 EKG Data: Telemetry overnight: Sinus bradycardia Assessment/Plan 74 yo female with SSS, tachybrady, PAF, PVD s/p L CEA with long sinus pauses off any rate lowering agents. Tachybrady: SSS- Pacer implant Monday AM PAF/CVA- Lovenox on, hold after evening dose. PVD: Continue Statin Continue Amlodipine Continue ASA. Indications, risks and benefits of pacer discussed in depth, details of the procedure in depth again today. 40 minutes face to face time spent with the patient. Counseling and/or Coordination of Care Minutes: 40 minutes
[2019-08-29] MEDS: Latanoprost 0.005%* 2.5 ml BTL BOTH EYES SCH (17:24)
--- NOTE | 2019-08-29 17:29 | PN ---
Subjective Date of Service: 08/29/19 Interval History: Pt is alert and oriented x 3. Pt reports that she is feeling well now. Denies dizziness, chest pain, nausea, or vomiting. pt states that she has not gotten out of bed alone since arrival. Pt is aware that she will be having pacemaker placed tomorrow. Family History: Unchanged from Admission Social History: Unchanged from Admission Past Medical History: Unchanged from Admission Objective Active Medications: Amlodipine Besylate (Norvasc Tab*) 10 mg PO DAILY [facility] Last Admin: 08/29/19 11:01 Dose: 10 mg Aspirin (Aspirin 81 Mg Chew Tab*) 81 mg PO DAILY [facility] Last Admin: 08/29/19 08:03 Dose: 81 mg Atorvastatin Calcium (Lipitor*) 80 mg PO QAM [facility] Last Admin: 08/29/19 08:04 Dose: 80 mg Enoxaparin Sodium (Lovenox(*)) 85 mg SUBCUT ONCE ONE Stop: 08/29/19 18:01 Last Admin: 08/29/19 17:23 Dose: 85 mg Sodium Chloride (Ns 0.9% 1000 Ml) 1,000 mls @ 100 mls/hr IV PER RATE [facility] Latanoprost (Xalatan 0.005%*) 1 drop BOTH EYES QPM [facility] Last Admin: 08/29/19 17:24 Dose: 1 drop Losartan Potassium (Cozaar Tab*) 100 mg PO DAILY [facility] Last Admin: 08/29/19 11:01 Dose: 100 mg Vital Signs - 8 hr 08/29/19 11:00 Temperature 97.8 F Pulse Rate 66 Respiratory 18 Rate Blood Pressure 139/73 (mmHg) O2 Sat by Pulse 96 Oximetry Oxygen Devices in Use Now: None Appearance: Obese elderly woman appears stated age sitting up in bed watching TV. Pt does not appear to be in any distress. Eyes: No Scleral Icterus, PERRLA Ears/Nose/Mouth/Throat: NL Teeth, Lips, Gums, Clear Oropharnyx, Mucous Membranes Moist, - - Edentulous Neck: NL Appearance and Movements; NL JVP, Trachea Midline, No Thyroid Enlargement, Masses Respiratory: Symmetrical Chest Expansion and Respiratory Effort, Clear to Auscultation Cardiovascular: NL Sounds; No Murmurs; No JVD, No Edema, - - Irregular rate and rhythm. Unable to palpate pedal pulses, feet are warm with normal sensation bilaterally Abdominal: NL Sounds; No Tenderness; No Distention, No Hepatosplenomegaly Lymphatic: No Cervical Adenopathy Extremities: No Edema, No Clubbing, Cyanosis Skin: No Rash or Ulcers, No Nodules or Sclerosis Neurological: Alert and Oriented x 3, NL Sensation, NL Muscle Strength and Tone Nutrition: Taking PO's Result Diagrams: 08/28/19 16:57 08/29/19 06:53 Assess/Plan/Problems-Billing Assessment:
[2019-08-29] MEDS ORDERED: Enoxaparin(*) 100 MG/ML SYR SUBCUT ONE (18:00)
[2019-08-29] MEDS: NS 0.9% 1000 ML** 1,000 ML IV SCH (23:54)
[2019-08-30] MEDS ORDERED: Chloroprocaine 3%* 20 ML VIAL INJ ONE (08:00)
[2019-08-30] MEDS ORDERED: ceFAZolin* 2 GM* ONE DOSE (Duplex) IVPB (08:00)
[2019-08-30 08:04] LABS: ABS Basophils 0.1 10^3/ul (0-0.2); ABS Eosinophils 0.2 10^3/ul (0-0.6); ABS Lymphocytes 1.4 10^3/ul (1.0-4.8); ABS Monocytes 0.6 10^3/ul (0-0.8); Eosinophil % 4.7 %; Hematocrit 40 % (35-47); Hemoglobin 13.6 g/dL (12.0-16.0); Lymphocyte % 26.2 %; Mean Corpuscular HGB Conc 34 g/dL (31-36); Mean Corpuscular Hemoglobin 31 pg (27-31); Mean Corpuscular Volume 90 fL (80-97); Mean Platelet Volume 7.4 fL (7.4-10.4); Nucleated Red Blood Cells % 0.1; Platelet Count 227 10^3/uL (150-450); Red Blood Count 4.41 10^6 /uL (3.70-4.87); Red Cell Distribution Width 14 % (10-15); White Blood Count 5.3 10^3/uL (3.5-10.8)
[2019-08-30] MEDS ORDERED: Midazolam* 1 MG/ML 5 ML VIAL (5 MG) ONE ×2 (08:09→08:37)
[2019-08-30] MEDS ORDERED: fentaNYL* 50 MCG/ML 2 ML VIAL (100 MCG VIAL) ONE (08:09)
[2019-08-30 08:11] LABS: BUN/Creatinine Ratio 20.5 (8-20); Calcium 8.6 mg/dL (8.6-10.3); EGFR African American 75.6 (>60); EGFR Non-African American 62.5 (>60)
[2019-08-30] MEDS ORDERED: Iohexol 300* (CONTRAST) 10 ML SDV ONE (08:15)
--- NOTE | 2019-08-30 09:40 | PN ---
Subjective Date of Service: 08/30/19 - dizz sss Interval History: [address] female followed by Dr Eddy with hx carotid disease, s/p CEA June, had a stroke in early July. EM revealed PAF and today EM showed Afib, RVR alternating with long pauses, 5-6 seconds. No new c/o Underwent dual chamber pacer implant Medications Active Medications: Amlodipine Besylate (Norvasc Tab*) 10 mg PO DAILY [facility] Last Admin: 08/29/19 11:01 Dose: 10 mg Aspirin (Aspirin 81 Mg Chew Tab*) 81 mg PO DAILY [facility] Last Admin: 08/29/19 08:03 Dose: 81 mg Atorvastatin Calcium (Lipitor*) 80 mg PO QAM [facility] Last Admin: 08/29/19 08:04 Dose: 80 mg Sodium Chloride (Ns 0.9% 1000 Ml) 1,000 mls @ 100 mls/hr IV PER RATE [facility] Last Admin: 08/29/19 23:54 Dose: 100 mls/hr Cefazolin Sodium 1 gm/ Sodium (Chloride) 50 mls @ 200 mls/hr IVPB Q8H [facility] Stop: 08/31/19 02:14 Latanoprost (Xalatan 0.005%*) 1 drop BOTH EYES QPM [facility] Last Admin: 08/29/19 17:24 Dose: 1 drop Losartan Potassium (Cozaar Tab*) 100 mg PO DAILY [facility] Last Admin: 08/29/19 11:01 Dose: 100 mg Objective Vital Signs: Temp Pulse Resp BP Pulse Ox 97.3 F 49 20 140/71 97 08/30/19 03:05 08/30/19 03:05 08/30/19 08:00 08/30/19 03:05 08/30/19 03:05 Oxygen Devices in Use Now: None Appearance: Overweight, NAD Eyes: No Scleral Icterus, PERRLA Ears/Nose/Mouth/Throat: Clear Oropharnyx, Mucous Membranes Moist Neck: NL Appearance and Movements; NL JVP, Trachea Midline Respiratory: Symmetrical Chest Expansion and Respiratory Effort, Clear to Auscultation Cardiovascular: RRR - bradycardia Abdominal: NL Sounds; No Tenderness; No Distention Extremities: No Edema, No Clubbing, Cyanosis Skin: No Rash or Ulcers Neurological: Alert and Oriented x 3, NL Muscle Strength and Tone Lines/Tubes/Other Access: Clean, Dry and Intact Peripheral IV Laboratory Results: 08/30/19 07:45 08/30/19 07:45 INR (Anticoag Therapy) 1.30 (0.82-1.09) H 08/28/19 16:57 APTT 46.4 seconds (26.0-38.0) H 08/28/19 16:57 Total Bilirubin 0.50 mg/dL (0.2-1.0) 08/28/19 16:57 AST 22 U/L (13-39) 08/28/19 16:57 ALT 21 U/L (7-52) 08/28/19 16:57 Alkaline Phosphatase 93 U/L (34-104) 08/28/19 16:57 CK-MB (CK-2) 3.3 ng/mL (0.6-6.3) 08/28/19 16:57 B-Natriuretic Peptide 233 pg/mL (<=100) H 08/28/19 16:57 Total Protein 8.1 g/dL (6.4-8.9) 08/28/19 16:57 Albumin 4.8 g/dL (3.2-5.2) 08/28/19 16:57 Globulin 3.3 g/dL (2-4) 08/28/19 16:57 Albumin/Globulin Ratio 1.5 (1-3) 08/28/19 16:57 TSH 2.64 mcIU/mL (0.34-5.60) 08/28/19 16:57 08/28/19 16:57 Troponin I 0.01 Diagnostic Imaging: cxr pending EKG Data: Telemetry overnight: Sinus bradycardia Assessment/Plan 74 yo female with SSS, tachybrady, PAF, PVD s/p L CEA with long sinus pauses off any rate lowering agents. Tachybrady: SSS- Pacer implanted, no complications. PAF/CVA-resume Eliquis tonight. Will discuss antiarrhythmics with Dr Eddy. PVD: Continue Statin Continue Amlodipine Continue ASA. Afternoon: CXR no pneumothorax, leads in good position. Discussed with Dr Eddy, added Toprol XL 25 mg/day to start tonight.
[2019-08-30] MEDS: amLODIPine TAB* 5 MG PO SCH (14:03)
[2019-08-30] MEDS: Atorvastatin* 80 MG TAB PO SCH (14:03)
[2019-08-30] MEDS: Aspirin 81 mg CHEW TAB* 81 MG TAB.CHEW PO SCH (14:03)
[2019-08-30] MEDS: Losartan TAB* 25 MG PO SCH (14:03)
[2019-08-30] MEDS: traMADol TAB* 50 MG PO PRN ×2 (14:17→20:35)
[2019-08-30] MEDS ORDERED: ceFAZolin VIAL(*) 1 GM in NS 0.9% 50 ML* 50 ML IVPB SCH (16:00)
[2019-08-30] MEDS: NS 0.9% 1000 ML** 1,000 ML IV SCH (16:12)
--- NOTE | 2019-08-30 16:14 | OP ---
CC: Dr. Salazar Eddy OPERATIVE REPORT: DATE OF OPERATION: 08/30/19 DATE OF : 41 SURGEON: Liana Sarmiento MD PRE-OP DIAGNOSIS: Sick sinus syndrome, tachybrady. POST-OP DIAGNOSIS: Sick sinus syndrome, tachybrady. OPERATIVE PROCEDURE: Pacemaker implantation. DESCRIPTION OF PROCEDURE: The indications, risks, and benefits of the procedure have been discussed with the patient in depth twice and she was amenable to proceeding. The patient is right-handed and the left subclavian fossa was prepped and draped in the usual sterile fashion. Eliquis had been held for 2 days. A time- out was called. Following the time-out, 10 cc of radiopaque dye was injected into the left upper extremity outlining the left axillary and left subclavian vein. Following this, the patient received fluoropropane (elijah rgic to LIDOCAINE) in the left subclavian fossa for anesthesia and throughout the procedure, she rece ived a total of 8 mg of Versed and 50 mcg of fentanyl for sedation. Using a 10-blade knife, a 2.5 cm incision was made in the left subclavian fossa and using Bovie and blunt dissection, it was extended to the level of the pectoralis muscle. Additional fluoropropane was injected inferiorly and mediall y and a small pocket was fashioned using blunt dissection. Using a modified Seldinger technique, the left subclavian vein was cannulated and using fluoroscopic guidance was guided into the left atrium. The procedure was repeated with a second guidewire. Using an introducer technique, the ventricular lead was guided into the right interventricular septum , actively fixed in place, pacing and sensing thresholds were good. Using the second guidewire and a n introducer technique, the atrial lead was guided into the right atrial appendage, actively fixed in place, pacing and sensing thresholds checked and found to be good. The leads were then sutured to the pocket using 0 silk suture. The pocket was copiously irrigated us ing normal saline. The patient had powder placed for hemostasis and the generator was then at tached to the leads placed in the pocket and the incision was closed using 2 layers of absorbable sut ure, 2-0 followed by 4- 0 followed by dakota and an external dressing. FINDINGS: The system is an MRI compatible Biotronik dual-chamber pacemaker system. The device is a Medtronic Edora 8 DR-T, serial number [id number]. The atrial lead is a Medtronic Solia S45, serial number [id number], the ventricular lead is a Biotronik Solia S53, serial number [id number]. Thresholds out of the pocket, P-wave sensed at 5 millivolts with an atrial lead impedance of 610 ohms and an atrial pacing threshold was 0.75 volts at 0.4 milliseconds. R-wave sensed at 4.4 millivolts with a ventricular lead impedance of 731 ohms and a ventricular pacing threshold of 0.8 volts at 0.4 milliseconds. In the pocket, P-waves were sensed at 5.2 millivolts, atrial pacing threshold 0.9 volts at 0.4 millis econds and atrial lead impendence 507 ohms. R-wave sensed at 9.3 millivolts, ventricular pacing thre shold 1.5 volts at 0.4 milliseconds and ventricular lead impendence 507 millivolts. The patient was hemodynamically stable throughout the procedure and on transfer to the floor, there w ere no complications. Estimated blood loss less than 5 cc. CONCLUSION: Successful pacemaker implantation. No complications. [id number]/[facility] #: [id number]
[2019-08-30] MEDS: Latanoprost 0.005%* 2.5 ml BTL BOTH EYES SCH (17:00)
[2019-08-30] MEDS ORDERED: ceFAZolin 1 GM ADVAN(*) 1 GM in NS 0.9% 50 ML* 50 ML IVPB SCH (17:05)
--- NOTE | 2019-08-30 18:27 | PN ---
Subjective Date of Service: 08/30/19 Interval History: pt reports that she is feeling well following pacer placement. However, she does report that she is having significant discomfort in left chest where pacer is positioned. pt denies any chest pain dizziness or SOB. Pt is alert and oriented x 3. Family History: Unchanged from Admission Social History: Unchanged from Admission Past Medical History: Unchanged from Admission Objective Active Medications: Amlodipine Besylate (Norvasc Tab*) 10 mg PO DAILY [facility] Last Admin: 08/30/19 14:03 Dose: 10 mg Apixaban (Eliquis*) 5 mg PO BID [facility] Aspirin (Aspirin 81 Mg Chew Tab*) 81 mg PO DAILY [facility] Last Admin: 08/30/19 14:03 Dose: 81 mg Atorvastatin Calcium (Lipitor*) 80 mg PO QAM [facility] Last Admin: 08/30/19 14:03 Dose: 80 mg Sodium Chloride (Ns 0.9% 1000 Ml) 1,000 mls @ 100 mls/hr IV PER RATE [facility] Last Admin: 08/30/19 16:12 Dose: 100 mls/hr Cefazolin Sodium 1 gm/ Sodium (Chloride) 50 mls @ 200 mls/hr IVPB Q8H [facility] Stop: 08/31/19 08:14 Latanoprost (Xalatan 0.005%*) 1 drop BOTH EYES QPM [facility] Last Admin: 08/30/19 17:00 Dose: 1 drop Losartan Potassium (Cozaar Tab*) 100 mg PO DAILY [facility] Last Admin: 08/30/19 14:03 Dose: 100 mg Tramadol HCl (Ultram*) 50 mg PO Q6H PRN PRN Reason: PAIN - MODERATE Last Admin: 08/30/19 14:17 Dose: 50 mg Vital Signs - 8 hr 08/30/19 08/30/19 08/30/19 10:30 10:33 11:00 Temperature Pulse Rate Respiratory Rate Blood Pressure 134/63 141/58 (mmHg) O2 Sat by Pulse 96 Oximetry 08/30/19 08/30/19 08/30/19 11:02 11:03 11:30 Temperature 97 F Pulse Rate Respiratory 16 Rate Blood Pressure 137/68 (mmHg) O2 Sat by Pulse 95 95 Oximetry 08/30/19 08/30/19 08/30/19 11:33 11:34 12:00 Temperature 97.7 F Pulse Rate Respiratory 16 Rate Blood Pressure 146/62 (mmHg) O2 Sat by Pulse 97 97 Oximetry 08/30/19 08/30/19 08/30/19 12:30 13:00 13:03 Temperature 97.7 F Pulse Rate Respiratory 16 Rate Blood Pressure 149/62 144/59 (mmHg) O2 Sat by Pulse 95 Oximetry 08/30/19 08/30/19 08/30/19 13:30 14:17 16:30 Temperature Pulse Rate Respiratory 18 18 Rate Blood Pressure 138/70 (mmHg) O2 Sat by Pulse Oximetry 08/30/19 08/30/19 16:46 16:47 Temperature 97.5 F Pulse Rate 66 Respiratory 18 Rate Blood Pressure 132/52 (mmHg) O2 Sat by Pulse 95 95 Oximetry Oxygen Devices in Use Now: None Eyes: No Scleral Icterus, PERRLA Ears/Nose/Mouth/Throat: NL Teeth, Lips, Gums, Clear Oropharnyx, Mucous Membranes Moist Neck: NL Appearance and Movements; NL JVP, Trachea Midline, No Thyroid Enlargement, Masses Respiratory: Symmetrical Chest Expansion and Respiratory Effort, Clear to Auscultation Cardiovascular: NL Sounds; No Murmurs; No JVD, RRR, No Edema Abdominal: NL Sounds; No Tenderness; No Distention, No Hepatosplenomegaly Lymphatic: No Cervical Adenopathy Extremities: No Edema, No Clubbing, Cyanosis Skin: No Rash or Ulcers, No Nodules or Sclerosis Neurological: Alert and Oriented x 3, NL Sensation, NL Muscle Strength and Tone Nutrition: Taking PO's Result Diagrams: 08/30/19 07:45 08/30/19 07:45 Assess/Plan/Problems-Billing Assessment: 74 yof with medical hx significant for CVA, PAF with SSS, HLD, HTN, Obesity arrives at the ED with reported rapid heart rate with 5 second pause captured on Yodo1OT Monitor. - Patient Problems (1) Pacemaker Comment: -Pacemaker POD#1, implanted 08/30/2019 -Pacing thresholds today good: Lead Resistance Sense Pace A 507 Ohms 4.3 0.6v@0.4 ms V 507 Ohms 8.1 1.2v@0.4 ms Incision w/o hematoma or infection F/u with cardiology 1 week Send home with antibiotics (2) PAF (paroxysmal atrial fibrillation) Comment: No afib since admission. Beta antonieta added Eliquis resumed last night (3) SSS (sick sinus syndrome) Comment: -Resolved with pacemaker (4) HLD (hyperlipidemia) Comment: -Lipitor 80mg PO Daily (5) HTN (hypertension) Comment: -Well controlled -Amlodapine and Losartan -Beta antonieta added, BP lower, no dizziness. (6) Full code status (7) DVT prophylaxis Status: Acute Comment: -Lovenox held morning of surgery Status and Disposition: Stable
[2019-08-30] MEDS: Metoprolol Succinate XL TAB* 25 MG PO SCH (19:02)
[2019-08-30] MEDS: Apixaban* 5 MG TAB PO SCH (20:35)
[2019-08-30] MEDS: ceFAZolin 1 GM* X 2 DOSES POST-OP Q8H (AddVan) IVPB SCH ×2 (23:57)
[2019-08-31] MEDS: ceFAZolin 1 GM* X 2 DOSES POST-OP Q8H (AddVan) IVPB SCH ×2 (08:25)
[2019-08-31] MEDS: Losartan TAB* 25 MG PO SCH (08:27)
[2019-08-31] MEDS: traMADol TAB* 50 MG PO PRN (08:27)
[2019-08-31] MEDS: Atorvastatin* 80 MG TAB PO SCH (08:27)
[2019-08-31] MEDS: Metoprolol Succinate XL TAB* 25 MG PO SCH (08:28)
[2019-08-31] MEDS: Aspirin 81 mg CHEW TAB* 81 MG TAB.CHEW PO SCH (08:28)
[2019-08-31] MEDS: amLODIPine TAB* 5 MG PO SCH (08:28)
[2019-08-31] MEDS: Apixaban* 5 MG TAB PO SCH (08:28)
--- NOTE | 2019-08-31 08:48 | PN ---
Subjective Date of Service: 08/31/19 - CC: dizzy/woozy now s/p pacer Interval History: Mild tenderness at incision overnight No SOB Walked to bathroom w/o problems. Pt lives with her daughter. Family History: Unchanged from Admission Social History: Unchanged from Admission Past Medical History: Unchanged from Admission Objective Active Medications: Amlodipine Besylate (Norvasc Tab*) 10 mg PO DAILY [facility] Last Admin: 08/31/19 08:28 Dose: 10 mg Apixaban (Eliquis*) 5 mg PO BID [facility] Last Admin: 08/31/19 08:28 Dose: 5 mg Aspirin (Aspirin 81 Mg Chew Tab*) 81 mg PO DAILY [facility] Last Admin: 08/31/19 08:28 Dose: 81 mg Atorvastatin Calcium (Lipitor*) 80 mg PO QAM [facility] Last Admin: 08/31/19 08:27 Dose: 80 mg Latanoprost (Xalatan 0.005%*) 1 drop BOTH EYES QPM [facility] Last Admin: 08/30/19 17:00 Dose: 1 drop Losartan Potassium (Cozaar Tab*) 100 mg PO DAILY [facility] Last Admin: 08/31/19 08:27 Dose: 100 mg Metoprolol Succinate (Toprol Xl Tab*) 25 mg PO DAILY [facility] Last Admin: 08/31/19 08:28 Dose: 25 mg Tramadol HCl (Ultram*) 50 mg PO Q6H PRN PRN Reason: PAIN - MODERATE Last Admin: 08/31/19 08:27 Dose: 50 mg Vital Signs - 8 hr 08/31/19 08/31/19 08/31/19 03:48 07:28 08:27 Temperature 97.4 F 98 F Pulse Rate 66 66 Respiratory 18 18 20 Rate Blood Pressure 126/63 107/81 (mmHg) O2 Sat by Pulse 96 98 Oximetry Vital Signs - 12 hr Temp Pulse Resp BP Pulse Ox 08/31/19 08:52 20 98 08/31/19 08:48 20 08/31/19 08:27 20 08/31/19 07:28 98 F 66 18 107/81 98 08/31/19 03:48 97.4 F 66 18 126/63 96 08/31/19 00:07 97.3 F 65 21 121/54 97 08/30/19 23:57 16 Oxygen Devices in Use Now: None Appearance: Lying in bed, 40 degrees, NAD. Eyes: No Scleral Icterus, PERRLA Ears/Nose/Mouth/Throat: Mucous Membranes Moist Neck: NL Appearance and Movements; NL JVP Respiratory: Symmetrical Chest Expansion and Respiratory Effort, Clear to Auscultation Cardiovascular: NL Sounds; No Murmurs; No JVD, RRR Abdominal: NL Sounds; No Tenderness; No Distention Extremities: No Edema, No Clubbing, Cyanosis Skin: No Rash or Ulcers - Incision left subclavian fossa: no evidence of infection, mild eccymosis, no evidence of hemaoma. Mild to moderately tender to touch, movement. Neurological: Alert and Oriented x 3, NL Muscle Strength and Tone Lines/Tubes/Other Access: Clean, Dry and Intact Peripheral IV Result Diagrams: 08/30/19 07:45 08/30/19 07:45 Diagnostic Imaging: Patient Name: BERNABE MARTINI Ordering Physician: Liana Sarmiento MD : 1945 Age: 74 Sex: F Location: [address] [place] [address]/TELEMETRY Exam Date: 08/30/19934 ADM Status: ADM IN Observation Date/Time: Order Information: CHEST AP/PORT Accession Number: [id number] CPT: 41695 HISTORY: S/P Device Implant COMPARISONS: August 28, 2019 VIEWS: 1: frontal AP view of the chest at 10:32 AM. The patient is obliqued to the left. FINDINGS: LINES AND TUBES: A left-sided pacemaker is noted. CARDIOMEDIASTINAL SILHOUETTE: The cardiomediastinal silhouette is normal for portable technique. PLEURA: The costophrenic angles are sharp. No pleural abnormalities are noted. There is no appreciable pneumothorax. LUNG PARENCHYMA: The lungs are clear. ABDOMEN: The upper abdomen is clear. There is no subphrenic gas. BONES AND SOFT TISSUES: No bone or soft tissue abnormalities are noted. IMPRESSION: NO ACTIVE CARDIOPULMONARY DISEASE. <Electronically signed by Jr Lou MD in OV> 08/30/19 1121 Dictated By: Jr Lou MD Dictated Date/Time: 08/30/19 112 Transcribed Date/Time: 08/30/191119 Copy to: CC:Jr Lou MD; Janneth Singh DO; Liana Sarmiento MD; Karen Hubbard MD; Olga Flores MD Imaging - [facility] Imaging - [facility] Imaging - [facility] [address] [id number] [place] [id number] ph ([phone]) ph ([phone]) ph ([phone]) This report is only to be considered final once signed by the Provider(s) as displayed in the "<Electronically Signed by >" field (s). Absence of a signature indicates the report is in a draft status and still needs to be finalized. In the event this document was created by someone other than the signing Provider, the individual initiating the document will be listed in the "Entered by:" or "Dictated by:" [email or web address]. 1 of EKG Data: ECG's today: NSR alternating with A pacing (no magnet), dual chamber pace 1:1 A+ V capture with magnet Monitor: no afib overnight. Assess/Plan/Problems-Billing Assessment: 74 yof sent to [facility] following event monitor with afib, rapid heart rate followed by symptomatic 5 second pause. PMHx significant for CVA, PAF with SSS, HLD, HTN, Obesity. Now s/p pacemaker implantation, beta antonieta added and home medications resumed doing well clinically. Discharge today. - Patient Problems (1) HTN (hypertension) Current Visit: Yes Comment: -Well controlled -Amlodapine and Losartan -Beta antonieta added, BP lower, no dizziness. (2) PAF (paroxysmal atrial fibrillation) Current Visit: Yes Status: Acute Code(s): I48.0 - PAROXYSMAL ATRIAL FIBRILLATION SNOMED Code(s): 039096178 Comment: No afib since admission. Beta antonieta added Eliquis resumed last night (3) Pacemaker Comment: -Pacemaker POD#1, implanted 08/30/2019 -Pacing thresholds today good: Lead Resistance Sense Pace A 507 Ohms 4.3 0.6v@0.4 ms V 507 Ohms 8.1 1.2v@0.4 ms Incision w/o hematoma or infection F/u with cardiology 1 week Send home with antibiotics (4) SSS (sick sinus syndrome) Comment: -Resolved with pacemaker (5) CVA (cerebral vascular accident) Comment: Eliquis resumed (6) History of left-sided carotid endarterectomy Comment: Continue ASA, Statin Status and Disposition: Stable Counseling and/or Coordination of Care Minutes: 30 minutes
[2019-08-31 12:42] VITALS: BP 127/41
--- NOTE | 2019-08-31 15:03 | DS ---
CC: Dr. Salazar Eddy; Dr. Olga Flores DISCHARGE SUMMARY: Full admission. DATE OF ADMISSION: 08/28/2019 DATE OF DISCHARGE: 08/31/2019 HISTORY OF PRESENT ILLNESS: Ms. Conrad is a 74-year-old woman followed by Dr. Eddy for Cardiology. She had an event monitor placed for episodes of wooziness and a history of stroke. This revealed paroxysmal AFib and then the day of admission it revealed long sinus pauses up to 6 seconds and she was admitted for elective pacemaker implantation. HOSPITAL COURSE: The patient's Eliquis was held. She was already off all rate lowering agents. Lovenox was placed to prevent stroke. On 08/30/19, the patient underwent dual-chamber pacemaker implantation with a Biotronik device without complications. She had some mild tenderness in the left shoulder following incision. It was otherwise uncomplicated. The patient was ambulating well on the day of discharge. Her pacemaker thresholds were stable and good and her chest x- rays showed good lead placement and no evidence of pneumothorax or acute infiltrates. PAST MEDICAL HISTORY: The patient has a past medical history of: 1. Carotid stenosis, status post carotid endarterectomy in June 2019. 2. CVA in July 2019. 3. Paroxysmal atrial fibrillation, newly started on Eliquis. 4. Sick sinus syndrome with symptomatic long pauses, status post pacemaker implantation on 08/30/19. 5. Hypertension. 6. Obesity. 7. Cataract surgery. 8. Dyslipidemia. ALLERGIES: Include CODEINE, LIDOCAINE, LISINOPRIL, SULFA, and ADHESIVE TAPE. DISCHARGE MEDICATIONS: Included: 1. Keflex 500 mg t.i.d. for 4 days. (new) 2. Toprol-XL 25 mg a day. (new) 3. Amlodipine 10 mg a day. 4. Eliquis 5 mg b.i.d. 5. Aspirin 81 mg a day. 6. Atorvastatin 40 mg a day. 7. Xalatan ophthalmic drops. 8. Cozaar 25 mg a day. PHYSICAL EXAMINATION: The patient was hemodynamically stable at the time of transfer with blood pressure 127/41, pulse was 64, respiratory rate 16, oxygen saturation 94%. Breath sounds were clear. Coronary: S1, S2, regular without murmurs. Incision, free of hematoma or infection. Condition: Improved and stable. DISPOSITION: The patient is discharged to home. She lives with her daughter. FOLLOWUP: She is to follow up in 1 week for removal of dakota and incision check with Dr. Sarmiento and in a month to follow up for full pacer interrogation with Dr. Eddy. See progress note for additional details from today. [id number]/[facility] #: [id number] ARYAN
== END 2019-08-31 12:00 | disposition home or self-care (01) | DRG 171 ==
LOC: ED 15:51 → MEDTELE 19:48
PROVIDERS: ADMIT Hospitalist; ATTEND Specialist
PROC: 02H63JZ Insertion of Pacemaker Lead into Right Atrium, Percutaneous Approach (ICD-10-PCS; 2019-08-30)
PROC: 02HK3JZ Insertion of Pacemaker Lead into Right Ventricle, Percutaneous Approach (ICD-10-PCS; 2019-08-30)
PROC: 0JH606Z Insertion of Pacemaker, Dual Chamber into Chest Subcutaneous Tissue and Fascia, Open Approach (ICD-10-PCS; principal; 2019-08-30 07:45)
DX: I49.5 Sick sinus syndrome (principal); E78.00 Pure hypercholesterolemia, unspecified; I10 Essential (primary) hypertension; M19.042 Primary osteoarthritis, left hand; M19.041 Primary osteoarthritis, right hand; H40.9 Unspecified glaucoma; M47.819 Spondylosis without myelopathy or radiculopathy, site unspecified; I48.0 Paroxysmal atrial fibrillation; E78.5 Hyperlipidemia, unspecified; I34.0 Nonrheumatic mitral (valve) insufficiency; E66.9 Obesity, unspecified; Z68.33 Body mass index [BMI] 33.0-33.9, adult; Z86.73 Personal history of transient ischemic attack (TIA), and cerebral infarction without residual deficits; Z88.8 Allergy status to other drugs, medicaments and biological substances; Z88.5 Allergy status to narcotic agent; Z88.2 Allergy status to sulfonamides; Z88.4 Allergy status to anesthetic agent; Z87.891 Personal history of nicotine dependence; Z79.01 Long term (current) use of anticoagulants; Z79.899 Other long term (current) drug therapy; Z79.82 Long term (current) use of aspirin
CPT/HCPCS: 33208; 36415; 71045; 71046; 80048; 80053; 81003; 81015; 82550; 82553; 83605; 83735; 83880; 84443; 84484; 85025; 85610; 85730; 87086; 93005; 99156; 99157; 99284; A9270-GY; C1786; C1892; C1898; J0690; J1650; J2250; J2400; J3010

== ENCOUNTER 2019-09-27 11:59 | Inpatient (IN) ==
[2019-09-27 13:03] LABS: ABS Eosinophils 0.2 10^3/ul (0-0.6); ABS Lymphocytes 1.6 10^3/ul (1.0-4.8); ABS Monocytes 0.8 10^3/ul (0-0.8); Eosinophil % 3.6 %; Hematocrit 25 % (35-47); Hemoglobin 8.5 g/dL (12.0-16.0); Lymphocyte % 24.6 %; Mean Corpuscular HGB Conc 34 g/dL (31-36); Mean Corpuscular Hemoglobin 31 pg (27-31); Mean Corpuscular Volume 91 fL (80-97); Mean Platelet Volume 7.4 fL (7.4-10.4); Nucleated Red Blood Cells % 0.1; Platelet Count 251 10^3/uL (150-450); Red Blood Count 2.72 10^6 /uL (3.70-4.87); Red Cell Distribution Width 16 % (10-15); White Blood Count 6.5 10^3/uL (3.5-10.8)
[2019-09-27 13:21] LABS: INR 1.53 (0.82-1.09)
[2019-09-27 13:31] LABS: Albumin 3.8 g/dL (3.2-5.2); Albumin/Globulin Ratio 1.5 (1-3); BUN/Creatinine Ratio 20.2 (8-20); Calcium 9.4 mg/dL (8.6-10.3); EGFR African American 62.3 (>60); EGFR Non-African American 51.5 (>60); Globulin 2.5 g/dL (2-4); Potassium 4.3 mmol/L (3.5-5.0); Total Bilirubin 0.5 mg/dL (0.2-1.0); Total Protein 6.3 g/dL (6.4-8.9)
[2019-09-27] MEDS ORDERED: Ondansetron 4 mg VIAL 2 MG/ML 2 ml VIAL IV PRN (14:14)
[2019-09-27 15:53] LABS: % Iron Saturation 5 % (15-55); Iron 24 ug/dL (50-212); Total Iron Binding Capacity 472 mcg/dL (250-450); Transferrin 337 mg/dL (203-362)
[2019-09-27] MEDS: Pantoprazole 80 mg in NS BAG 80 MG/250 ML BAG IV SCH (16:04)
[2019-09-27 16:10] LABS: Ferritin 18.3 ng/mL (11-307)
[2019-09-27] MEDS: Latanoprost 0.005% 2.5 ml BTL BOTH EYES SCH (17:03)
[2019-09-27 19:02] LABS: Hematocrit 23 % (35-47)
[2019-09-28] MEDS: Pantoprazole 80 mg in NS BAG 80 MG/250 ML BAG IV SCH (01:42)
[2019-09-28 05:38] LABS: ABS Basophils 0.1 10^3/ul (0-0.2); ABS Eosinophils 0.4 10^3/ul (0-0.6); ABS Lymphocytes 1.4 10^3/ul (1.0-4.8); ABS Monocytes 0.6 10^3/ul (0-0.8); Eosinophil % 8.7 %; Hematocrit 25 % (35-47); Hemoglobin 8.4 g/dL (12.0-16.0); Lymphocyte % 30.3 %; Mean Corpuscular HGB Conc 33 g/dL (31-36); Mean Corpuscular Hemoglobin 31 pg (27-31); Mean Corpuscular Volume 92 fL (80-97); Mean Platelet Volume 7.3 fL (7.4-10.4); Nucleated Red Blood Cells % 0.1; Platelet Count 236 10^3/uL (150-450); Red Blood Count 2.73 10^6 /uL (3.70-4.87); Red Cell Distribution Width 16 % (10-15); White Blood Count 4.5 10^3/uL (3.5-10.8)
[2019-09-28 06:03] LABS: BUN/Creatinine Ratio 14.9 (8-20); Calcium 8.9 mg/dL (8.6-10.3); EGFR African American 70.1 (>60); EGFR Non-African American 57.9 (>60); Magnesium 1.9 mg/dL (1.9-2.7); Potassium 4.3 mmol/L (3.5-5.0)
[2019-09-28] MEDS ORDERED: fentaNYL 100 mcg/2 ml 50 MCG/ML VIAL ONE (08:19)
[2019-09-28] MEDS ORDERED: Midazolam 10 mg/10 ml VIAL 1 mg/ml 10 ml VIAL (10 mg) ONE (08:20)
[2019-09-28] MEDS ORDERED: Iron Sucrose 200 MG in NS 0.9% 100 ml BAG 100 ML IVPB ONE (10:41)
[2019-09-28 14:40] LABS: Hematocrit 26 % (35-47); Hemoglobin 8.6 g/dL (12.0-16.0)
[2019-09-28] MEDS ORDERED: PEG 3000 GI LAVAGE 1 GALLON PO ONE (16:00)
[2019-09-28] MEDS: Latanoprost 0.005% 2.5 ml BTL BOTH EYES SCH (16:41)
[2019-09-28 23:12] LABS: Hematocrit 26 % (35-47); Hemoglobin 8.8 g/dL (12.0-16.0)
[2019-09-29 06:12] LABS: ABS Eosinophils 0.3 10^3/ul (0-0.6); ABS Lymphocytes 1.2 10^3/ul (1.0-4.8); ABS Monocytes 0.6 10^3/ul (0-0.8); Eosinophil % 6.2 %; Hematocrit 23 % (35-47); Hemoglobin 7.6 g/dL (12.0-16.0); Lymphocyte % 22.5 %; Mean Corpuscular HGB Conc 34 g/dL (31-36); Mean Corpuscular Hemoglobin 31 pg (27-31); Mean Corpuscular Volume 91 fL (80-97); Nucleated Red Blood Cells % 0.1; Red Blood Count 2.47 10^6 /uL (3.70-4.87); Red Cell Distribution Width 16 % (10-15); White Blood Count 5.2 10^3/uL (3.5-10.8)
[2019-09-29 06:37] LABS: Platelet Count Platelets clumped. 10^3/uL (150-450)
[2019-09-29] MEDS ORDERED: fentaNYL 100 mcg/2 ml 50 MCG/ML VIAL ONE (09:23)
[2019-09-29] MEDS ORDERED: Midazolam 10 mg/10 ml VIAL 1 mg/ml 10 ml VIAL (10 mg) ONE (09:23)
[2019-09-29] MEDS ORDERED: Iron Sucrose 200 MG in NS 0.9% 100 ml BAG 100 ML IVPB ONE (10:10)
[2019-09-29 14:21] LABS: Hematocrit 24 % (35-47); Hemoglobin 7.9 g/dL (12.0-16.0)
[2019-09-29] MEDS: Latanoprost 0.005% 2.5 ml BTL BOTH EYES SCH (17:04)
[2019-09-29 23:28] LABS: Hematocrit 22 % (35-47); Hemoglobin 7.3 g/dL (12.0-16.0)
[2019-09-30] MEDS: Diltiazem IV push/loading dose 5 MG/ML 5 ML vial (25 mg) IV SLOW PU ONE ×2 (05:20→10:38)
[2019-09-30 05:59] LABS: ABS Eosinophils 0.3 10^3/ul (0-0.6); ABS Lymphocytes 1.1 10^3/ul (1.0-4.8); ABS Monocytes 0.5 10^3/ul (0-0.8); Hematocrit 24 % (35-47); Hemoglobin 8.1 g/dL (12.0-16.0); Lymphocyte % 23.2 %; Mean Corpuscular HGB Conc 34 g/dL (31-36); Mean Corpuscular Hemoglobin 31 pg (27-31); Mean Corpuscular Volume 91 fL (80-97); Mean Platelet Volume 7.5 fL (7.4-10.4); Nucleated Red Blood Cells % 0.1; Platelet Count 213 10^3/uL (150-450); Red Blood Count 2.64 10^6 /uL (3.70-4.87); Red Cell Distribution Width 16 % (10-15); White Blood Count 4.8 10^3/uL (3.5-10.8)
[2019-09-30] MEDS ORDERED: Metoprolol Tartrate 5 mg VIAL 5 ml VIAL (1 mg/ml) IV PRN (06:27)
[2019-09-30] MEDS ORDERED: fentaNYL 100 mcg/2 ml 50 MCG/ML VIAL ONE (08:03)
[2019-09-30] MEDS ORDERED: Midazolam 10 mg/10 ml VIAL 1 mg/ml 10 ml VIAL (10 mg) ONE (08:04)
[2019-09-30] MEDS ORDERED: Metoprolol Tartrate 5 mg VIAL 5 ml VIAL (1 mg/ml) IV ONE (08:21)
[2019-09-30] MEDS ORDERED: Diltiazem IV push/loading dose 5 MG/ML 5 ML vial (25 mg) IV SLOW PU ONE ×2 (09:55→10:21)
[2019-09-30] MEDS ORDERED: Diltiazem IV BAG D5W Premix 125 MG/125 ML BAG IV SCH ×4 (11:00→16:00)
[2019-09-30] MEDS ORDERED: Iron Sucrose 200 MG in NS 0.9% 100 ml BAG 100 ML IVPB ONE (12:00)
[2019-09-30] MEDS: Latanoprost 0.005% 2.5 ml BTL BOTH EYES SCH (17:41)
[2019-09-30] MEDS: Diltiazem IV BAG D5W Premix 125 MG/125 ML BAG IV SCH (18:51)
[2019-10-01] MEDS: Diltiazem IV BAG D5W Premix 125 MG/125 ML BAG IV SCH (04:46)
[2019-10-01 06:45] LABS: ABS Eosinophils 0.3 10^3/ul (0-0.6); ABS Lymphocytes 1.4 10^3/ul (1.0-4.8); ABS Monocytes 0.8 10^3/ul (0-0.8); Eosinophil % 4.1 %; Hematocrit 24 % (35-47); Hemoglobin 8.1 g/dL (12.0-16.0); Lymphocyte % 21.3 %; Mean Corpuscular HGB Conc 33 g/dL (31-36); Mean Corpuscular Hemoglobin 31 pg (27-31); Mean Corpuscular Volume 92 fL (80-97); Mean Platelet Volume 7.5 fL (7.4-10.4); Nucleated Red Blood Cells % 0.2; Platelet Count 217 10^3/uL (150-450); Red Blood Count 2.62 10^6 /uL (3.70-4.87); Red Cell Distribution Width 16 % (10-15); White Blood Count 6.3 10^3/uL (3.5-10.8)
[2019-10-01] MEDS ORDERED: Iron Sucrose 200 MG in NS 0.9% 100 ml BAG 100 ML IVPB ONE (09:00)
[2019-10-01 11:24] VITALS: BP 107/85
[2019-10-02] MEDS ORDERED: Iron Sucrose 200 MG in NS 0.9% 100 ml BAG 100 ML IVPB ONE (06:00)
== END 2019-10-01 16:40 | disposition home or self-care (01) | DRG 253 ==
LOC: ED 11:59 → MEDTELE 14:14 → ICU 09-30 10:19 → MEDTELE 09-30 16:16
PROVIDERS: ADMIT Internal Medicine; ATTEND Hospitalist

== ENCOUNTER 2022-12-21 14:04 | Observation (INO) ==
[2022-12-21 15:24] LABS: ABS Basophils 0.1 10^3/uL (0.0-0.1); ABS Eosinophils 0.1 10^3/uL (0.0-0.5); ABS Lymphocytes 1.7 10^3/uL (1.0-4.8); ABS Neutrophils 8.9 10^3/uL (1.5-7.6); ABS Nucleated RBC 0.01 10^3/ul; Hematocrit 37.1 % (35-45); Hemoglobin 12.6 g/dL (11.5-14.3); Lymphocyte % 14.6 %; Mean Corpuscular Hemoglobin 31.7 pg (27-33); Mean Corpuscular Hgb Conc 34.1 g/dL (31-36); Mean Platelet Volume 7.4 fL (7.5-11.2); Nucleated Red Blood Cells % 0.1 /100 WBC (0.0-0.4); Platelet Count 297 10^3/uL (150-450); Red Blood Count 3.99 10^6/uL (3.63-4.92); Red Cell Distribution Width 14.8 % (12-17); White Blood Count 11.8 10^3/uL (3.8-11.8)
[2022-12-21 15:46] LABS: Activated Partial Thrombo Time 31.7 seconds (26.0-38.0); INR 1.02 (0.83-1.13)
[2022-12-21 15:48] LABS: ALT 18 U/L (7-52); Albumin 4.1 g/dL (3.2-5.2); Albumin/Globulin Ratio 1.5 (1-3); Alkaline Phosphatase 79 U/L (35-149); Blood Urea Nitrogen 20 mg/dL (6-24); CO2 Carbon Dioxide 22 mmol/L (22-32); Calcium 9.1 mg/dL (8.6-10.3); Chloride 108 mmol/L (101-111); Globulin 2.7 g/dL (2-4); Glucose 99 mg/dL (70-100); Sodium 138 mmol/L (135-145); Total Protein 6.8 g/dL (6.4-8.9); eGFR CKD-EPI 57.3 (>60)
[2022-12-21 15:56] LABS: Anion Gap 8 mmol/L (2-16)
[2022-12-21] MEDS ORDERED: Pantoprazole VIAL 40 MG VIAL IV ONE (16:18)
[2022-12-21 17:39] LABS: Potassium Redraw 4.1 mmol/L (3.5-5.0)
[2022-12-21] MEDS ORDERED: Pantoprazole VIAL 40 MG VIAL IV SCH (21:00)
[2022-12-21] MEDS: Latanoprost 0.005% 2.5 ml BTL BOTH EYES SCH (21:33)
[2022-12-21] MEDS: NF: Multivitamins/Mins AREDS2 (NF) CAP PO SCH (21:35)
[2022-12-22] MEDS: Pantoprazole VIAL 40 MG VIAL IV SCH ×2 (05:55→18:23)
[2022-12-22 06:32] LABS: Hematocrit 32.5 % (35-45); Hemoglobin 11.3 g/dL (11.5-14.3); Mean Corpuscular Hemoglobin 32.3 pg (27-33); Mean Corpuscular Hgb Conc 34.7 g/dL (31-36); Mean Corpuscular Volume 93.2 fL (80-97); Mean Platelet Volume 7.4 fL (7.5-11.2); Platelet Count 249 10^3/uL (150-450); Red Blood Count 3.49 10^6/uL (3.63-4.92); Red Cell Distribution Width 14.9 % (12-17); White Blood Count 6.3 10^3/uL (3.8-11.8)
[2022-12-22 06:50] LABS: Calcium 8.7 mg/dL (8.6-10.3); Creatinine, Serum 0.92 mg/dL (0.51-0.95); Magnesium 1.9 mg/dL (1.9-2.7); eGFR CKD-EPI 63.3 (>60)
[2022-12-22] MEDS: NF: Multivitamins/Mins AREDS2 (NF) CAP PO SCH ×2 (09:44→21:09)
[2022-12-22] MEDS ORDERED: Dexamethasone IV 4 MG/ML VIAL 1 ml VIAL ONE (17:20)
[2022-12-22] MEDS ORDERED: Dexamethasone IV 4 MG/ML VIAL 1 ml VIAL IV SLOW PU ONE (17:20)
[2022-12-22] MEDS ORDERED: Ondansetron 4 mg VIAL 2 MG/ML 2 ml VIAL IV ONE (17:20)
[2022-12-22] MEDS ORDERED: Ondansetron 4 mg VIAL 2 MG/ML 2 ml VIAL ONE (17:20)
[2022-12-22] MEDS: Latanoprost 0.005% 2.5 ml BTL BOTH EYES SCH (21:10)
[2022-12-23] MEDS: Pantoprazole VIAL 40 MG VIAL IV SCH (06:20)
[2022-12-23 07:03] LABS: ABS Lymphocytes 1.1 10^3/uL (1.0-4.8); ABS Monocytes 0.2 10^3/uL (0.0-0.9); ABS Neutrophils 6.7 10^3/uL (1.5-7.6); Hemoglobin 12.5 g/dL (11.5-14.3); Mean Corpuscular Hemoglobin 31.5 pg (27-33); Mean Corpuscular Hgb Conc 33.7 g/dL (31-36); Mean Corpuscular Volume 93.5 fL (80-97); Mean Platelet Volume 7.5 fL (7.5-11.2); Platelet Count 295 10^3/uL (150-450); Red Blood Count 3.95 10^6/uL (3.63-4.92); Red Cell Distribution Width 14.7 % (12-17)
[2022-12-23 07:21] LABS: Calcium 9.2 mg/dL (8.6-10.3); Creatinine, Serum 0.95 mg/dL (0.51-0.95); Magnesium 1.9 mg/dL (1.9-2.7); Potassium 4.3 mmol/L (3.5-5.0); eGFR CKD-EPI 60.9 (>60)
[2022-12-23] MEDS: NF: Multivitamins/Mins AREDS2 (NF) CAP PO SCH (08:19)
[2022-12-23 12:39] VITALS: BP 118/59
== END 2022-12-23 18:57 | disposition home or self-care (01) ==
LOC: EDHOLD 14:04 → ED 14:04 → SUATTDRO 18:02 → MEDTELE 19:45
PROVIDERS: ADMIT Internal Medicine; ATTEND Internal Medicine
PROC: O.GIEGD (2022-12-22 15:20)

== ENCOUNTER 2022-12-29 12:48 | Observation (INO) ==
[2022-12-29] MEDS ORDERED: Pantoprazole VIAL 40 MG VIAL IV ONE (13:06)
[2022-12-29 13:44] LABS: ABS Eosinophils 0.2 10^3/uL (0.0-0.5); ABS Lymphocytes 1.6 10^3/uL (1.0-4.8); ABS Monocytes 0.8 10^3/uL (0.0-0.9); ABS Neutrophils 6.3 10^3/uL (1.5-7.6); ABS Nucleated RBC 0.01 10^3/ul; Eosinophil % 2.5 %; Hematocrit 30.5 % (35-45); Hemoglobin 10.5 g/dL (11.5-14.3); Mean Corpuscular Hemoglobin 32.1 pg (27-33); Mean Corpuscular Hgb Conc 34.4 g/dL (31-36); Mean Corpuscular Volume 93.2 fL (80-97); Mean Platelet Volume 7.5 fL (7.5-11.2); Nucleated Red Blood Cells % 0.1 /100 WBC (0.0-0.4); Platelet Count 295 10^3/uL (150-450); Red Blood Count 3.27 10^6/uL (3.63-4.92); Red Cell Distribution Width 14.8 % (12-17); White Blood Count 8.9 10^3/uL (3.8-11.8)
[2022-12-29 13:57] LABS: Activated Partial Thrombo Time 30.9 seconds (26.0-38.0); INR 1.04 (0.83-1.13)
[2022-12-29 14:03] LABS: Albumin 3.8 g/dL (3.2-5.2); Albumin/Globulin Ratio 1.6 (1-3); Calcium 9.2 mg/dL (8.6-10.3); Creatinine, Serum 0.98 mg/dL (0.51-0.95); Globulin 2.4 g/dL (2-4); Potassium 4.1 mmol/L (3.5-5.0); Total Bilirubin 0.6 mg/dL (0.2-1.0); Total Protein 6.2 g/dL (6.4-8.9); eGFR CKD-EPI 58.7 (>60)
[2022-12-29] MEDS ORDERED: NS 0.9% 1000 ml BAG 1,000 ML IV SCH (15:30)
[2022-12-29 18:24] LABS: Hematocrit 30.4 % (35-45); Hemoglobin 10.3 g/dL (11.5-14.3)
[2022-12-29] MEDS ORDERED: Latanoprost 0.005% 2.5 ml BTL BOTH EYES SCH (21:00)
[2022-12-29 23:00] LABS: Hematocrit 30.3 % (35-45); Hemoglobin 10.2 g/dL (11.5-14.3)
[2022-12-30 07:02] LABS: Calcium 8.2 mg/dL (8.6-10.3); Creatinine, Serum 0.89 mg/dL (0.51-0.95); Magnesium 1.7 mg/dL (1.9-2.7); eGFR CKD-EPI 65.9 (>60)
[2022-12-30 07:12] LABS: ABS Eosinophils 0.4 10^3/uL (0.0-0.5); ABS Lymphocytes 1.7 10^3/uL (1.0-4.8); ABS Monocytes 0.7 10^3/uL (0.0-0.9); ABS Neutrophils 3.4 10^3/uL (1.5-7.6); ABS Nucleated RBC 0.01 10^3/ul; Eosinophil % 6.3 %; Hematocrit 28.7 % (35-45); Hemoglobin 9.9 g/dL (11.5-14.3); Lymphocyte % 26.3 %; Mean Corpuscular Hemoglobin 32.4 pg (27-33); Mean Corpuscular Hgb Conc 34.5 g/dL (31-36); Mean Platelet Volume 7.7 fL (7.5-11.2); Nucleated Red Blood Cells % 0.2 /100 WBC (0.0-0.4); Platelet Count 257 10^3/uL (150-450); Red Blood Count 3.05 10^6/uL (3.63-4.92); Red Cell Distribution Width 14.8 % (12-17); White Blood Count 6.3 10^3/uL (3.8-11.8)
[2022-12-30 11:18] LABS: Hematocrit 31.4 % (35-45); Hemoglobin 10.6 g/dL (11.5-14.3)
[2022-12-30] MEDS ORDERED: Iron Sucrose 200 MG in NS 0.9% 100 ml BAG 100 ML IVPB ONE (11:26)
[2022-12-30 14:26] VITALS: BP 113/55
== END 2022-12-30 14:28 | disposition home or self-care (01) ==
LOC: EDHOLD 12:48 → ED 12:48 → SUATTDRO 16:00 → MEDTELE 17:44
PROVIDERS: ADMIT Internal Medicine; ATTEND Internal Medicine